=== PATIENT | female | born 1930 | race Caucasian/White ===

== ENCOUNTER → 2017-02-05 | Day surgery (SDC) | payer OTHER, MEDICARE ==
[~2017-02-05] VITALS: Ht 167.6 cm; Wt 65.8 kg
[~2017-02-05] MED LIST: AMOXICILLIN500 M2 PO; AUGMENTIN 875-1 EACH PO; BISACODYL5 M1 PO; BYSTOLIC5 M1 PO; COZAAR50 M1 PO; IBUPROFEN600 M1 PO; LEVOTHYROXINE100 MC1 PO; MULTI-DAY VITA1 EACH PO; NIZORAL120 ML TOP; OXYBUTYNIN CHLOR5 M2 PO; PROBIOTIC1 EACH PO; SENNA S TABLET1 EACH PO; TRAMADOL HCL50 M1 PO; TRIAMTERENE-HC1 EAC3 PO; TYLENOL #31 TAB PO; ULTRAM50 M1 PO; VESICARE5 M1 PO; ZOFRAN4 M2 PO
--- NOTE | 2017-02-05 10:19 | Operative Report ---
Operative/Inv Procedure Report Surgery Date: 02/05/17 Name of Procedure: ultrasound guided Hysteroscopy, endocervical biopsy/endocervical polypectomy, endometrial biopsy Pre-Operative Diagnosis: Incidental thick endometrium, suspected endometrial polyp Post-Operative Diagnosis: same, endocervical polyp, intrauterine adhesions. Estimated Blood Loss: scant Surgeon/College Scouting Coordinator: SUSAN STACK DO Anesthesia: TIVA IV Fluids: 1600 ml Urine Output: NA Drains: NA Specimens: emb,ecc, endocervical polyp Complications: NONE Condition: GOOD Operative Indication: 86 YEAR OLD FEMALE WHO PRESENTED TO [facility] WITH C/O PELVIC PAIN. SHE UNDERWENT PELVIC ULTRASOUND AND WAS FOUND TO HAVE AN INCIDENTALLY THICK ENDOMETRIUM WITH A SUSPICION OF A POLYP. u/s demonstrates 8.5mm endometrium with endometrial fluid. possible 6.9mm polyp noted. Anterior basalis was 2.1mm and posterior basalis 2.8mm. Pt informed of guidelines for endometrial sampling if endometrial fluid is present and endometrial thickness is >3mm. Otherwise, if asymptomatic and no fluid the threshold for sampling is 11mm. I ADVISED HYSTEROSCOPY, D AND C, POSSIBLE POLYPECTOMY under ULTRASOUND GUIDANCE . R/B/A REVIEWED INCLUDING RISK OF BLEEDING, INFECTION, PERFORATION, INJURY TO OTHER ORGANS, INCOMPLETE PROCEDURE, NON DIAGNOSTIC SPECIMEN. QUESTIONS WERE ANSWERED AND SHE DESIRES TO PROCEED. Operative/Procedure Note Note: THE PATIENT WAS TAKEN TO THE OPERATING ROOM WHERE ANESTHESIA WAS OBTAINED WITHOUT DIFFICULTY. SHE WAS THEN PREPPED AND DRAPED IN THE USUAL STERILE FASHION. SHE HAD QUITE A NARROW VAGINA . IT COULD NOT ACCOMODATE NARROW STEWART OR NORMAL SIZED SPECULUM. A PEDIATRIC SPECULUM WAS PLACED INSIDE THE PATIENT'S VAGINA . ANTERIOR LIP OF THE CERVIX WAS GRASPED WITH A SINGLE TOOTHED TENACULUM. A NAVARRO WAS INSERTED INTO THE BLADDER. THE BLADDER WAS BACKFILLED WITH 250ML OF STERILE WATER. PT LEAKED URINE FROM AROUND HER NAVARRO CATHETER. CERVICAL DILATION WAS PERFORMED WITH IMTIAZ DILATERS TO 19FRENCH. MODERATE CERVICAL MUCOUS WAS OBTAINED. PREHYSTEROSCOPY ENDOMETRIAL THICKNESS WAS 8MM. NO OBVIOUS ENDOMETRIAL FLUID WAS NOTED. HYSTEROSCOPY WAS PERFORMED WITH NORMAL SALINE DISTENTION MEDIA. ENDOCERVIX APPEARED TO HAVE POLYPOID TISSUE POSTERIORLY AND A SMALL ENDOCERVICAL POLYP ORIGINATING FROM 10 O'CLOCK. SHE HAD A BAND OF TISSUE IN THE MIDLINE OF THE LOWER UTERINE SEGMENT WHICH OBSTRUCTED ENTRY INTO THE ENDOMETRIAL CAVITY. USING THE MYOSURE DEVICE THE ENDOCERVICAL POLYP AND POLYPOID APPEARING TISSUE WERE EXCISED WITHOUT DIFFICULTY. MULTIPLE ATTEMPTS MADE TO FURTHER DILATE HER CERVIX AND GAIN ACCESS TO ENDOMETRIAL CAVITY UNDER DIRECT VISUALIZTION AND UNDER ULTRASOUND GUIDANCE BUT IT COULD NOT BE ACCOMPLISHED. US EXAMINATION SHOWED FLUID COLLECTION IN THE POSTERIOR PORTION OF UTERUS AND SLIGHTLY INTO THE ENDOMETRIAL CANAL . DIRECT VISUALIZATION OF FUNDUS AND OSTIA ATTEMPTED BUT SUBOPTIMAL. PROCEDURE WAS TERMINATED HER ENDOMETRIAL ECHO WAS 8MM ON TODAY'S US WITH NO OBVIOUS PREPROCEDURE ENDOMETRIAL FLUID NOTED (AND THRESHOLD FOR SAMPLING IS 11MM) AND I WAS CONCERNED THAT FURTHER MANIPULATION MAY CAUSE A PERFORATION . SHARP CURETTAGE WAS DEFERRED. RATHER ECC WAS OBTAINED AND SENT WITH THE CERVICAL MUCOUS OBTAINED EARLIER. ENDOMETRIAL PIPELLE PASSED X 2. SMALL BLOOD OBTAINED. ALL INSTRUMENTS WERE REMOVED FROM THE PATIENT'S UTERUS, CERVIX, AND VAGINA. HEMOSTASIS OF TENACULUM SITES WAS ACHIEVED. ALL SPONGE, LAP, AND NEEDLE COUNTS WERE CORRECT X 2 AND THE PATIENT WAS TAKEN TO THE RECOVERY AREA IN STABLE CONDITION. SPECIMENS SENT FOR PATHOLOGY. FINDINGS WERE RELAYED TO THE PATIENT AND HER DAUGHTER IN LAW POSTOPERATIVELY. DISCHARGE PRECAUTIONS WERE ADVISED.
--- NOTE | 2017-02-08 23:25 | ULTRASOUND REPORT ---
EXAMINATION: US GUIDANCE IN THE OPERATING ROOM CLINICAL INFORMATION: Thickened endometrium. Pelvic pain. COMPARISON: CT scan of the abdomen and pelvis dated 08/01/2016. TECHNIQUE: Intraoperative fluoroscopy was provided for the performance of a hysteroscopy with dilatation and curettage and polypectomy. FINDINGS: 6 images obtained demonstrate poor visualization of the uterus with what appears to be an abnormally thickened and heterogeneous endometrium, measuring up to approximately 1.2 cm in thickness. Ovaries not visualized. IMPRESSION: Limited images of the uterus obtained during intraoperative guidance.
== END ==
LOC: STS 02:21
DX: N84.1 Polyp of cervix uteri (principal); R10.2 Pelvic and perineal pain; N73.6 Female pelvic peritoneal adhesions (postinfective); R93.8 Abnormal findings on diagnostic imaging of other specified body structures; E03.9 Hypothyroidism, unspecified; I10 Essential (primary) hypertension; K21.9 Gastro-esophageal reflux disease without esophagitis
CPT/HCPCS: 76998; 88305; J2250

== ENCOUNTER 2017-02-17 14:31 | Inpatient (IN) | payer OTHER, MEDICARE ==
[~2017-02-17] VITALS: Ht 167.6 cm; Wt 68.0 kg
[~2017-02-17 14:31] MED LIST changes: -IBUPROFEN600 M1 PO
--- NOTE | 2017-02-17 14:45 | ED GI/GU/ABDOMINAL COMPLAINT ---
History of Present Illness General Chief Complaint: Nausea, Vomiting, Diarrhea Stated Complaint: SIB DR. JARRELL FOR +N/V Source: patient, family Exam Limitations: no limitations Vital Signs & Intake/Output Vital Signs & Intake/Output Vital Signs Date Time Temp Pulse Resp B/P B/P Pulse O2 O2 Flow FiO2 Mean Ox Delivery Rate 02/17 1741 97.0 70 18 209/76 99 Room Air 02/17 1438 99.5 84 20 188/65 96 Room Air Allergies Coded Allergies: omeprazole (Intermediate, GI UPSET 08/01/16) lisinopril (??? 02/03/17) codeine (Intermediate, INCREASED PAIN, N/V 08/01/16) oxycodone (From PERCOCET) (NAUSEA / VOMITING 02/03/17) Reconcile Medications Ibuprofen 600 MG TABLET 1 TAB PO TID PRN PAIN (Reported) with food Levothyroxine Sodium 100 MCG TABLET 1 TAB PO DAILY AC THYROID (Reported) Oxybutynin Chloride 5 MG TABLET 1 TAB PO Q48 Bladder Can use daily as tolerated. Sennosides/Docusate Sodium (Senna S Tablet) 8.6 MG-50 MG TABLET 1 TAB PO DAILY PRN CONSTIPATION (Reported) Tramadol HCl 50 MG TABLET 0.5 TAB PO Q6-PRN PRN PAIN (Reported) Triage Note: PT TO ED C/O DIARRHEA X A FEW DAYS. DENIES N/V. POOR PO INTAKE. ALSO C/O BURNING WITH URINATION. PT HAD D&C WITH DR STACK ON 02/05, STATES THE BURNING STARTED AFTER THAT AND HAS BEEN WORSE. PT CALLED PCP DR JARRELL AND WAS ADVISED TO COME TO ED FOR FLUIDS. Triage Nurses Notes Reviewed? yes ? N Is pt currently ? No Duration: constant Timing: recent history Quality/Severity: aching Severity Numbers: 5 Location: generalized abdomen Radiation: no radiation HPI: Patient is a 86-year-old female with a past medical history of hypertension hyperlipidemia and 2 weeks ago of a uterine D&C for uterine fibroids and abnormal vaginal bleeding where she states that her symptoms of bleeding have resolved however patient presented to emergency with a 3 day history of persistent diarrhea and loose watery bowel production. Patient denies any recent antibiotics. Patient is able to tolerate by mouth Does complain of intermittent abdominal pain Patient does have dysuria and increased frequency of urination Denies any fever chills chest pain shortness of breath back pain vaginal bleeding or discharge nausea or vomiting (TAIWO PEREZ) Past History Travel History Traveled to [place] past 21 day No Medical History Any Pertinent Medical History? 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/Reproductive: NONE History of MRSA: No History of VRE: No History of CDIFF: No Pneumonia Vaccine: 07/16/16 Influenza Vaccine: 07/14/16 Surgical History Surgical History: cholecystectomy, knee replacement (bilateral), B/L TRK dupuytren's 5th digit LAPROSCOPIC HIATAL HERNIA REPAIR hiatal hernia repair (07/17/2016) Psychosocial History Who do you live with Patient/Self Services at Home Home Health Aide What is your primary language Tajik Tobacco Use: Never used ETOH Use: denies use Illicit Drug Use: denies illicit drug use Family History Family History, If Any: MOTHER FH: heart disease FATHER FH: diabetes mellitus FH: heart disease Hx Contributory? No (TAIWO PEREZ) Review of Systems Review of Systems Constitutional: Reports: no symptoms. EENTM: Reports: no symptoms. Respiratory: Reports: no symptoms. Cardiovascular: Reports: no symptoms. GI: Reports: see HPI, abdominal pain, diarrhea. Genitourinary: Reports: no symptoms. Musculoskeletal: Reports: no symptoms. Skin: Reports: no symptoms. Neurological/Psychological: Reports: no symptoms. Hematologic/Endocrine: Reports: no symptoms. Immunologic/Allergic: Reports: no symptoms. All Other Systems: Reviewed and Negative (TAIWO PEREZ) Physical Exam Physical Exam General Appearance: no apparent distress, alert, comfortable Gastrointestinal: normal bowel sounds, soft, MILD RIGHT LOWER QUADRANT AND LEFT LOWER QUADRANT POINT TENDERNESS NO REBOUND TENDERNESS Comments: Well-developed well-nourished person in no acute distress HEENT: Normal EENT exam Neck: Supple, no lymphadenopathy, normal range of motion without pain or tenderness Back: Nontender, no CVA tenderness. Cardiovascular: Regular rate and rhythms no murmurs rubs or gallops, normal JVP Respiratory: Chest nontender. No respiratory distress.breath sounds clear to auscultation bilaterally Abdomen: Soft, nontender nondistended, no appreciable organomegaly. Normal bowel sounds. No ascites Extremity: No edema, no calf tenderness to palpation, normal and equal pulses. Neuro: Alert oriented x3, motor sensory normal, Skin: No appreciable rash on exposed skin, skin is warm and dry. Psych: Mood and affect is normal, memory and judgment is normal. Core Measures ACS in differential dx? No Severe Sepsis Present: No Septic Shock Present: No (LUC GARCIA,TAIWO) Progress Differential Diagnosis: AAA, AMI, appendicitis, biliary colic, bowel obstruction , colon cancer, cholecystitis, diverticulitis, endometritis, esophageal varices, gastritis, hepatitis, hernia, hemorrhoids, ischemic bowel, inflamm bowel dis, kidney stone, Mohini-Eric tear, ovarian cyst, ovarian torsion, pancreatitis, PID/cervicitis, peptic ulcer, PUD/GERD, perforated viscous, SBO, UTI/pyelo Plan of Care: Orders Procedure Date/time Status Nothing by Mouth 02/18 B Active ED Holding Orders 02/17 2010 Active Admit to inpatient 02/17 2010 Active Vital Signs 02/17 2010 Active Code Status 02/17 2010 Active PARTIAL THROMBOPLASTIN TIME 02/17 1829 Active PROTHROMBIN TIME 02/17 1829 Active EKG 02/17 1829 Active TYPE & SCREEN (NOT X-MATCH) 02/17 1829 Complete BLOOD CULTURE 02/17 1828 Active LACTIC ACID 02/17 1755 Complete Straight Cath 02/17 1612 Active CULTURE,URINE 02/17 1455 Active CULTURE,STOOL 02/17 1455 Active C.DIFFICILE 02/17 1455 Active URINALYSIS 02/17 1455 Complete LIPASE 02/17 1455 Complete LACTIC ACID 02/17 1455 Complete COMPREHENSIVE METABOLIC PANEL 02/17 1455 Complete CBC WITHOUT DIFFERENTIAL 02/17 1455 Complete AMYLASE 02/17 1455 Complete Laboratory Tests 02/17/17 1856: Lactic Acid 0.7, PT Pending, INR Pending, APTT Pending 02/17/17 1710: Urinalysis MOD H, Urine Color BROWN H, Urine Clarity CLDY H, Urine pH 6.0, Ur Specific [place] 1.025, Urine Protein 100 H, Urine Ketones NEG, Urine Nitrite POS H, Urine Bilirubin NEG, Urine Urobilinogen 1.0, Ur Leukocyte Esterase LARGE H, Ur Microscopic SEDIMENT EXAMINED, Urine RBC 5-10 H, Urine WBC > 75 H, Ur Epithelial Cells MOD H, Urine Bacteria MANY H, Urine Mucus FEW, Urine Hemoglobin LARGE H, Urine Glucose NEG 02/17/17 1352: Anion Gap 9, Estimated GFR > 60, BUN/Creatinine Ratio 15.0, Glucose 117 H, Lactic Acid 0.9, Calcium 8.4, Total Bilirubin 0.3, AST 15, ALT 30, Alkaline Phosphatase 82, Total Protein 6.0 L, Albumin 2.8 L, Globulin 3.2, Albumin/ Globulin Ratio 0.9 L, Amylase < 30 L, Lipase 11 L, CBC w Diff NO MAN DIFF REQ , RBC 3.15 L, MCV 82.2, MCH 26.9 L, RDW 15.9 H, MPV 6.8 L, Gran % 85.3 H, Lymphocytes % 8.6 L, Monocytes % 5.4, Eosinophils % 0.4, Basophils % 0.3, Absolute Granulocytes 11.5 H, Absolute Lymphocytes 1.2, Absolute Monocytes 0.7 H, Absolute Eosinophils 0, Absolute Basophils 0, PUBS MCHC 32.7 L Microbiology 02/17 1954 BLOOD: Blood Culture - RECD 02/17 1856 BLOOD: Blood Culture - RECD 02/17 1710 URINE ROUT: Urine Culture - RECD 02/17 1548 STOOL: Clostridium difficile Toxin A & B - RECD 02/17 1548 STOOL: Stool Culture - RECD Patient upon initial evaluation was in no apparent distress and declined pain medications when offered. IV fluid resuscitation was administered initially. Patient after CT scan was resulted shows acute critical findings of a possible diverticulitis with fistula communication between the sigmoid colon and the bladder I discussed patient with Dr. Jt Hermosillo who accepted the patient under his service in which he agrees with IV antibiotics and by mouth Discussed admission with surgical PA will also consult patient Discussed disposition and plan with family members and patient who currently is no questionS and patient is resting comfortably at bedside. (LUC GARCIA,TAIWO) Diagnostic Imaging: Viewed by Me: CT Scan. Radiology Impression: acute abnormality Initial ED EKG: normal p-waves, normal QRS complex, normal sinus rhythm, 66 BPM Comments: PATIENT: BETHANY SAENZ PRESENT AGE: 86 PATIENT ACCOUNT NO: [id number] : 32 LOCATION: [facility] ORDERING PHYSICIAN: TAIWO GARCIA SERVICE DATE: 02/17/17 EXAM TYPE: CAT - CT ABD & PELVIS W IV CONTRAST EXAMINATION: CT ABDOMEN AND PELVIS WITH CONTRAST CLINICAL INFORMATION: Abdominal pain and diarrhea. COMPARISON: CT from 08/01/2016. TECHNIQUE: Multidetector volumetric imaging was performed of the abdomen and pelvis after the IV administration of 95 mL of Optiray 320 intravenous contrast. Sagittal and coronal reformatted images were obtained on the technologist's workstation. DLP: 283.12 mGy-cm FINDINGS: There is significant wall thickening surrounding the mid sigmoid colon with scattered diverticula and a moderate amount of retained stool. Pericolonic inflammatory changes are also present. There is a questionable communication of air between the bowel and adjacent thick-walled bladder which contains foci of air. There is a mild amount of free fluid in the pelvis. No free air is identified. No drainable fluid collection is seen. There is no evidence of a large bowel obstruction. Extensive colonic diverticulosis is again noted with a moderate volume of stool in the colon. The uterus is not well assessed due to large bowel wall thickening in the deep pelvis. No bulky adenopathy is seen. The kidneys demonstrate symmetric nephrograms. The spleen, liver, and adrenal glands appear normal. There are fatty changes throughout the pancreas. There is moderate atherosclerotic wall calcification of the nonaneurysmal abdominal aorta. Small pleural effusions are noted. There is mild passive atelectasis in the left lung base. No acute osseous abnormality is seen. A chronic anterior wedge compression fracture deformity at T12 is relatively unchanged with retropulsion of the superior endplate. Significant disc space narrowing and endplate sclerosis again noted at L5-S1. Heterogeneous sclerotic and lucent changes in the bony sacrum may be due to prior sacral fractures. There are suspected chronic fractures in the right pubic rami. IMPRESSION: Mid sigmoid colonic wall thickening and inflammatory changes which are most indicative for acute diverticulitis. No free air or drainable fluid collection. 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 Mild amount of air in the bladder. Correlate for any history of recent Montemayor catheterization. Imaging findings discussed with Dr. Cruz at 6:27 PM on 02/17/2017. (TAIWO PEREZ) Departure Departure Disposition: STILL A PATIENT Condition: Guarded Clinical Impression Primary Impression: Diverticulitis of sigmoid colon Secondary Impressions: Colovesical fistula Referrals: CHRYSTAL SZYMANSKI,AZAM Leyva (PCP/Family) Departure Forms: Customer Survey General Discharge Information Admission Note Spoke With: JT HERMOSILLO JR, DO Documentation of Exam: Documentation of any treatments & extenuating circumstances including Concerns Regarding Discharge (functional status, medication knowledge or non-compliance, living conditions, etc.) that warrant an admission rather than observation: [ Discussed patient with Dr. Hermosillo who agrees with admission for concerns of diverticulitis and suspicion of fistula of the colon and the bladder which patient requires IV antibiotics, repeat blood work vital sign check IV fluid resuscitation and possible surgical intervention] (TAIWO PEREZ) PA/DIRECTOR OF SPA AND GUEST EXPERIENCE Co-Sign Statement Statement: ED Attending supervision documentation- [x] I saw and evaluated the patient. I have also reviewed all the pertinent lab results and diagnostic results. I agree with the findings and the plan of care as documented in the PA's/DIRECTOR OF SPA AND GUEST EXPERIENCE's documentation. [] I have reviewed the ED Record and agree with the PA's/DIRECTOR OF SPA AND GUEST EXPERIENCE's documentation. [] Additions or exceptions (if any) to the PAs/DIRECTOR OF SPA AND GUEST EXPERIENCE's note and plan are summarized below: [] (PHILIP DIOP DO) Critical Care Note Critical Care Note Critical Care Time: 75-104 min (TAIWO PEREZ)
[2017-02-17] MEDS ORDERED: SENNA S TABLET1 EACH PO (15:24)
[2017-02-17] MEDS ORDERED: IBUPROFEN600 M1 PO (15:25)
[2017-02-17] MEDS ORDERED: TRAMADOL HCL50 M1 PO (15:25)
[2017-02-17 15:37] LABS: ABSOLUTE BASOPHIL COUNT 0 /CUMM (0.0-0.2); ABSOLUTE EOSINOPHIL COUNT 0 /CUMM (0.0-0.7); ABSOLUTE GRANULOCYTE CT 11.5 /CUMM (1.4-6.5); ABSOLUTE LYMPH COUNT 1.2 /CUMM (1.2-3.4); ABSOLUTE MONOCYTE COUNT 0.7 /CUMM (0.10-0.60); BASOPHIL % 0.3 % (0.0-2.0); EOSINOPHIL % 0.4 % (0-5); HEMATOCRIT 25.9 % (37-47); MEAN CORPUSCULAR HGB 26.9 PG (27.0-31.0); MEAN CORPUSCULAR HGB CONC 32.7 G/DL (33.0-37.0); MEAN CORPUSCULAR VOLUME 82.2 FL (81.0-99.0); MEAN PLATELET VOLUME 6.8 FL (7.4-10.4); PLATELET COUNT 414 /CUMM (130-400); RBC DISTRIBUTION WIDTH 15.9 % (11.5-14.5); RED BLOOD CELL CT 3.15 /CUMM (4.20-5.40); WHITE BLOOD CELL COUNT 13.5 /CUMM (4.8-10.8)
[2017-02-17 15:56] LABS: GRANULOCYTE % 85.3 % (42.2-75.2)
--- NOTE | 2017-02-17 18:35 | CT SCAN REPORT ---
EXAMINATION: CT ABDOMEN AND PELVIS WITH CONTRAST CLINICAL INFORMATION: Abdominal pain and diarrhea. COMPARISON: CT from 08/01/2016. TECHNIQUE: Multidetector volumetric imaging was performed of the abdomen and pelvis after the IV administration of 95 mL of Optiray 320 intravenous contrast. Sagittal and coronal reformatted images were obtained on the technologist's workstation. DLP: 283.12 mGy-cm FINDINGS: There is significant wall thickening surrounding the mid sigmoid colon with scattered diverticula and a moderate amount of retained stool. Pericolonic inflammatory changes are also present. There is a questionable communication of air between the bowel and adjacent thick-walled bladder which contains foci of air. There is a mild amount of free fluid in the pelvis. No free air is identified. No drainable fluid collection is seen. There is no evidence of a large bowel obstruction. Extensive colonic diverticulosis is again noted with a moderate volume of stool in the colon. The uterus is not well assessed due to large bowel wall thickening in the deep pelvis. No bulky adenopathy is seen. The kidneys demonstrate symmetric nephrograms. The spleen, liver, and adrenal glands appear normal. There are fatty changes throughout the pancreas. There is moderate atherosclerotic wall calcification of the nonaneurysmal abdominal aorta. Small pleural effusions are noted. There is mild passive atelectasis in the left lung base. No acute osseous abnormality is seen. A chronic anterior wedge compression fracture deformity at T12 is relatively unchanged with retropulsion of the superior endplate. Significant disc space narrowing and endplate sclerosis again noted at L5-S1. Heterogeneous sclerotic and lucent changes in the bony sacrum may be due to prior sacral fractures. There are suspected chronic fractures in the right pubic rami. IMPRESSION: Mid sigmoid colonic wall thickening and inflammatory changes which are most indicative for acute diverticulitis. No free air or drainable fluid collection. 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 Mild amount of air in the bladder. Correlate for any history of recent Montemayor catheterization. Imaging findings discussed with Dr. Cruz at 6:27 PM on 02/17/2017.
[2017-02-17 19:18] LABS: PT 13.2 SEC (9.4-12.5); PTT 32 SEC (25-37)
--- NOTE | 2017-02-17 23:45 | Admission Core Measures ---
Admission Lab Results I reviewed the following labs: Laboratory Tests 02/17 02/17 1856 1710 Chemistry Lactic Acid (0.7 - 2.1 mmol/L) 0.7 Coagulation PT (9.4 - 12.5 SEC) 13.2 H INR (0.90 - 1.19) 1.26 H APTT (25 - 37 SEC) 32 Urines Urinalysis MOD H Urine Color (YEL,AMB,STR) BROWN H Urine Clarity (CLEAR) CLDY H Urine pH (5.0 - 8.0) 6.0 Ur Specific [place] (1.001 - 1.035) 1.025 Urine Protein (NEG,<30 MG/DL) 100 H Urine Ketones (NEG) NEG Urine Nitrite (NEG) POS H Urine Bilirubin (NEG) NEG Urine Urobilinogen (0.1 - 1.0 EU/dl) 1.0 Ur Leukocyte Esterase (NEG) LARGE H Ur Microscopic SEDIMENT EXAMINED Urine RBC (0 - 5 /HPF) 5-10 H Urine WBC (0 - 2 /HPF) > 75 H Ur Epithelial Cells (NONE,FEW) MOD H Urine Bacteria (NEG/NONE) MANY H Urine Mucus (FEW,NONE) FEW Urine Hemoglobin (NEG) LARGE H Urine Glucose (N MG/DL) NEG 02/17 1352 Chemistry Sodium (137 - 145 mmol/L) 137 Potassium (3.5 - 5.1 mmol/L) 3.2 L Chloride (98 - 107 mmol/L) 102 Carbon Dioxide (22 - 30 mmol/L) 26 Anion Gap (5 - 16) 9 BUN (7 - 17 mg/dL) 12 Creatinine (0.5 - 1.0 mg/dL) 0.8 Estimated GFR (>60 ml/min) > 60 BUN/Creatinine Ratio (7 - 25 %) 15.0 Glucose (65 - 99 mg/dL) 117 H Lactic Acid (0.7 - 2.1 mmol/L) 0.9 Calcium (8.4 - 10.2 mg/dL) 8.4 Total Bilirubin (0.2 - 1.3 mg/dL) 0.3 AST (14 - 36 U/L) 15 ALT (9 - 52 U/L) 30 Alkaline Phosphatase (<127 U/L) 82 Total Protein (6.3 - 8.2 g/dL) 6.0 L Albumin (3.5 - 5.0 g/dL) 2.8 L Globulin (1.9 - 4.2 gm/dL) 3.2 Albumin/Globulin Ratio (1.1 - 2.2 %) 0.9 L Amylase (30 - 110 U/L) < 30 L Lipase (23 - 300 U/L) 11 L Hematology CBC w Diff NO MAN DIFF REQ WBC (4.8 - 10.8 /CUMM) 13.5 H RBC (4.20 - 5.40 /CUMM) 3.15 L Hgb (12.0 - 16.0 G/DL) 8.5 L Hct (37 - 47 %) 25.9 L MCV (81.0 - 99.0 FL) 82.2 MCH (27.0 - 31.0 PG) 26.9 L RDW (11.5 - 14.5 %) 15.9 H Plt Count (130 - 400 /CUMM) 414 H MPV (7.4 - 10.4 FL) 6.8 L Gran % (42.2 - 75.2 %) 85.3 H Lymphocytes % (20.5 - 51.1 %) 8.6 L Monocytes % (1.7 - 9.3 %) 5.4 Eosinophils % (0 - 5 %) 0.4 Basophils % (0.0 - 2.0 %) 0.3 Absolute Granulocytes (1.4 - 6.5 /CUMM) 11.5 H Absolute Lymphocytes (1.2 - 3.4 /CUMM) 1.2 Absolute Monocytes (0.10 - 0.60 /CUMM) 0.7 H Absolute Eosinophils (0.0 - 0.7 /CUMM) 0 Absolute Basophils (0.0 - 0.2 /CUMM) 0 PUBS MCHC (33.0 - 37.0 G/DL) 32.7 L Admission Meds I reviewed the following Meds: Current Medications Sig/Miguel Start time Last Medication Dose Stop Time Status Admin Acetaminophen 650 MG Q6PRN PRN 02/17 2230 AC (Tylenol) Dextrose/Sodium 1,000 ML .[id number] 02/18 0000 AC Chloride (D5-Normal Saline) Heparin Sodium 5,000 UNIT Q8 02/18 0600 AC (Porcine) Levothyroxine Sodium 0.1 MG DAILY AC 02/18 0700 AC (Synthroid) Ondansetron HCl 4 MG Q6-PRN PRN 02/17 2245 AC (Zofran) Acute Coronary Syndrome Inclusion Criteria ACS Diagnosis No Inpatient Core Measures LDL Reminder: If No, please order W/I first 24hr of stay Congestive Heart Failure Inclusion Criteria CHF Diagnosis No Cerebrovascular accident Inclusion Criteria CVA/TIA Diagnosis No Inpatient Core Measures Bedside Swallow Eval Reminder: If BSE failed, place ST order Antithrombotic Reminder: Order Antithrombotic Medication by end of day 2 Antithrombotic Reminder: Document Reason Antithrombotic Not ordered by end of day 2 AFIB/Flutter Reminder: If Present, add to problem list AFIB/Flutter Reminder: Order Anticoag Medication for pts with AFIB/Flutter Atherosclerosis Reminder: If Present, add to problem list LDL Reminder: If No, please order W/I first 24hr of stay PT Order Reminder: If No, please order Venous thromboembolism Inpatient Core Measures VTE Risk Factors: Acute medical illness, Age > 40 [facility]/t No contraindications No VTE Pharm Prophylaxis d/t No contraindications Inclusion Criteria - Per Current guidelines, there needs to be overlap - treatment for the first 5 days of Warfarin therapy. - Parenteral Anticoagulation (IV or SC) needs to be - given along with Warfarin therapy. VTE Diagnosis No VTE Type NONE VTE Confirmed by (Test) NONE Problem List As ranked by this Provider includes Assessment & Plan 1. Colovesical fistula HOME MEDS Home Med List Ibuprofen 600 MG TABLET 1 TAB PO TID PRN PAIN (Reported) Levothyroxine Sodium 100 MCG TABLET 1 TAB PO DAILY AC THYROID (Reported) Oxybutynin Chloride 5 MG TABLET 1 TAB PO Q48 Bladder Sennosides/Docusate Sodium (Senna S Tablet) 8.6 MG-50 MG TABLET 1 TAB PO DAILY PRN CONSTIPATION (Reported) Tramadol HCl 50 MG TABLET 0.5 TAB PO Q6-PRN PRN PAIN (Reported)
--- NOTE | 2017-02-17 23:55 | History & Physical Pre-Op ---
DERRELL OCONNOR 02/17/17 2344: General Information and HPI MD Statement: I have seen and personally examined BETHANY SAENZ and documented this H&P. The patient is a 86 year old F who presented with a patient stated chief complaint of []. History of Present Illness: 86f presents to ED c/o diarrhea and stool in her urine x3 days. She has also had vague lower abdominal pain for the last year. PMHx hyprothyroidism, htn, OA , & urge incontinence, and s/p D&C 2 wks ago for fibroid tumors. She reports a low appetite, but denies nausea/vomiting. Noticed feculent material in urine 3- 4 days ago when began having diarrhea, and has had dysuria with "burning" for a few weeks. Deneis fever/chills, no CP/SOB. Last colonoscopy in fall 2015- per pt, "twisted" colon and poor prep, so exam was incomplete, but was told she had extensive diverticulosis. No known episodes of diverticulitis. Allergies/Medications Allergies: Coded Allergies: omeprazole (Intermediate, GI UPSET 08/01/16) lisinopril (??? 02/03/17) codeine (Intermediate, INCREASED PAIN, N/V 08/01/16) oxycodone (From PERCOCET) (NAUSEA / VOMITING 02/03/17) Home Med list Ibuprofen 600 MG TABLET 1 TAB PO TID PRN PAIN (Reported) with food Levothyroxine Sodium 100 MCG TABLET 1 TAB PO DAILY AC THYROID (Reported) Oxybutynin Chloride 5 MG TABLET 1 TAB PO Q48 Bladder Can use daily as tolerated. 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 self Services at Home Home Health Aide Primary Language: Latvian ETOH Use: denies use Illicit Drug Use: denies illicit drug use Living Will? yes Functional Ability ADLs Independent: dressing, eating, toileting, bathing. Ambulation: independent IADLs Independent: shopping, housework, finances, food prep, telephone, transportation , medication admin. Exam & Diagnostic Data Last 24 Hrs of Vital Signs/I&O Vital Signs Date Time Temp Pulse Resp B/P B/P Pulse O2 O2 Flow FiO2 Mean Ox Delivery Rate 02/17 1741 97.0 70 18 209/76 99 Room Air 02/17 1438 99.5 84 20 188/65 96 Room Air Intake & Output 02/17 1600 02/17 0800 06 0000 Intake Total 1000 Output Total Balance 1000 Intake, IV 1000 Patient 150 lb Weight Weight Estimated Measurement Method Physical Exam: GEN: NAD CARD: S1S2 RRR PULM: CTAB ABD: softly distended, nt, well healed surg incisions, +bs, no masses EXT: slight edema ankles, calves soft nt bl Last 24 Hrs of Labs/Brad: Laboratory Tests 02/17/17 1856: Lactic Acid 0.7, PT 13.2 H, INR 1.26 H, APTT 32 02/17/17 1710: Urinalysis MOD H, Urine Color BROWN H, Urine Clarity CLDY H, Urine pH 6.0, Ur Specific [place] 1.025, Urine Protein 100 H, Urine Ketones NEG, Urine Nitrite POS H, Urine Bilirubin NEG, Urine Urobilinogen 1.0, Ur Leukocyte Esterase LARGE H, Ur Microscopic SEDIMENT EXAMINED, Urine RBC 5-10 H, Urine WBC > 75 H, Ur Epithelial Cells MOD H, Urine Bacteria MANY H, Urine Mucus FEW, Urine Hemoglobin LARGE H, Urine Glucose NEG 02/17/17 1352: Anion Gap 9, Estimated GFR > 60, BUN/Creatinine Ratio 15.0, Glucose 117 H, Lactic Acid 0.9, Calcium 8.4, Total Bilirubin 0.3, AST 15, ALT 30, Alkaline Phosphatase 82, Total Protein 6.0 L, Albumin 2.8 L, Globulin 3.2, Albumin/ Globulin Ratio 0.9 L, Amylase < 30 L, Lipase 11 L, CBC w Diff NO MAN DIFF REQ , RBC 3.15 L, MCV 82.2, MCH 26.9 L, RDW 15.9 H, MPV 6.8 L, Gran % 85.3 H, Lymphocytes % 8.6 L, Monocytes % 5.4, Eosinophils % 0.4, Basophils % 0.3, Absolute Granulocytes 11.5 H, Absolute Lymphocytes 1.2, Absolute Monocytes 0.7 H, Absolute Eosinophils 0, Absolute Basophils 0, PUBS MCHC 32.7 L Microbiology 02/17 1954 BLOOD: Blood Culture - RECD 02/17 185 BLOOD: Blood Culture - RECD 02/17 1710 URINE ROUT: Urine Culture - RECD 02/17 1548 STOOL: Clostridium difficile Toxin A & B - RECD 02/17 1548 STOOL: Stool Culture - RECD Diagnostic Data Other Results CT a/p: FINDINGS: There is significant wall thickening surrounding the mid sigmoid colon with scattered diverticula and a moderate amount of retained stool. Pericolonic inflammatory changes are also present. There is a questionable communication of air between the bowel and adjacent thick-walled bladder which contains foci of air. There is a mild amount of free fluid in the pelvis. No free air is identified. No drainable fluid collection is seen. There is no evidence of a large bowel obstruction. Extensive colonic diverticulosis is again noted with a moderate volume of stool in the colon. The uterus is not well assessed due to large bowel wall thickening in the deep pelvis. No bulky adenopathy is seen. The kidneys demonstrate symmetric nephrograms. The spleen, liver, and adrenal glands appear normal. There are fatty changes throughout the pancreas. There is moderate atherosclerotic wall calcification of the nonaneurysmal abdominal aorta. Small pleural effusions are noted. There is mild passive atelectasis in the left lung base. No acute osseous abnormality is seen. A chronic anterior wedge compression fracture deformity at T12 is relatively unchanged with retropulsion of the superior endplate. Significant disc space narrowing and endplate sclerosis again noted at L5-S1. Heterogeneous sclerotic and lucent changes in the bony sacrum may be due to prior sacral fractures. There are suspected chronic fractures in the right pubic rami. IMPRESSION: Mid sigmoid colonic wall thickening and inflammatory changes which are most indicative for acute diverticulitis. No free air or drainable fluid collection. 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 Mild amount of air in the bladder. Correlate for any history of recent Starr catheterization. Assessment/Plan Assessment/Plan: A: 86F with colovesical fistula and diarrhea, with mild leukocytosis, otherwise stable. P: clrs, npo p mn ivf iv meds starr cath check cdiff ralph, flagyl Dr. Hermosillo to see in am, surgery to be discussed with patient As Ranked By This Provider Problem List: 1. Colovesical fistula JT HERMOSILLO DO 02/18/17 0837: Attending MD Review Statement Attending Statement Attending Assessment/Plan: Clincical data reviewed , pt examined and pt discussed with PA staff Agree with above assesment and plan Admit NPO, IV antibiotics , likely surgery this admission
[2017-02-18 05:36] VITALS: BP 182/96
[2017-02-18 06:53] VITALS: BP 182/96
[2017-02-18 07:20] VITALS: BP 162/68
--- NOTE | 2017-02-18 07:47 | PN- General Surgery ---
See Addendum Subjective Subjective: Awake, alert No complaints overnight Feels much better after the starr placement - no further burning No nausea or abdominal pain Objective Vital Signs and I&Os Vital Signs Date Time Temp Pulse Resp B/P B/P Pulse O2 O2 Flow FiO2 Mean Ox Delivery Rate 02/18 0720 162/68 02/18 0653 98.7 79 20 182/96 95 Room Air 02/18 0607 78 182/96 / 0536 78 182/96 / 0421 172/72 02/18 0411 72 166/72 / 0403 77 170/74 / 0355 182/81 /08 0334 98.6 82 18 181/110 06/ 0334 81 181/110 98 Room Air 02/18 0318 190/76 /08 0210 98.6 78 18 200/76 96 Room Air / 1741 97.0 70 18 209/76 99 Room Air / 1438 99.5 84 20 188/65 96 Room Air Intake & Output 02/18 0800 / 0000 02/17 1600 02/17 0800 02/17 0000 02/16 1600 Intake Total 210 1000 Output Total 50 Balance 210 -50 1000 Intake, IV 150 1000 Intake, Oral 60 Output, Urine 50 Patient 150 lb 150 lb Weight Weight Reported by Patient Estimated Measurement Method Physical Exam: SBP 180-200 overnight Pt has taken dyazide/losartan in the past but was told after a hospitalization last august that she didn't need to take those meds. Does not seem to be pain related General: alert and oriented times three Chest: clear anteriorly bilaterally Abd:soft, good bs, nontender, nondistended Ext: warm, no edema Assessment/Plan Assessment/Plan 86 yo female hospital day 2 - admitted overnight for colovesicular fistula HTN: restart patients prior medication regimen of dyazide and losartan, will monitor closely Continue starr catheter npo/ivf - await Dr Hermosillo decision regarding surgery antibiotics hep sc for dvt ppx replete potassium in the ivf fu labs this am Core Measures/Miscellaneous Venous Thromboembolism VTE Risk Factors: Age > 40, Surgery VTE Contraindications: No Contraindications VTE Diagnosis: No VTE Type: NONE VTE Confirmed by (Test): NONE Beta Derrick Is Beta Derrick a Home Med? No Antibiotics Is Patient on Antibiotics? Yes If Yes: infection
--- NOTE | 2017-02-18 09:02 | PN- General Surgery ---
Surgical Brief Attending Note Brief Attending Note: Pt looks well AVSS Abdomen - soft Impression : Acute diverticulitis with colovesicle fistula. Pt not toxic Will keep on IV antibiotics and get this to cool down for a few day Pt will need surgery this admission Will need urology assitace with this case - I will contact them
[2017-02-18 09:05] LABS: ABSOLUTE BASOPHIL COUNT 0 /CUMM (0.0-0.2); ABSOLUTE EOSINOPHIL COUNT 0 /CUMM (0.0-0.7); ABSOLUTE GRANULOCYTE CT 11.9 /CUMM (1.4-6.5); ABSOLUTE LYMPH COUNT 0.8 /CUMM (1.2-3.4); ABSOLUTE MONOCYTE COUNT 0.6 /CUMM (0.10-0.60); BASOPHIL % 0.1 % (0.0-2.0); EOSINOPHIL % 0.2 % (0-5); HEMATOCRIT 25.6 % (37-47); MEAN CORPUSCULAR HGB 26.7 PG (27.0-31.0); MEAN CORPUSCULAR HGB CONC 32.8 G/DL (33.0-37.0); MEAN CORPUSCULAR VOLUME 81.5 FL (81.0-99.0); PLATELET COUNT 446 /CUMM (130-400); RBC DISTRIBUTION WIDTH 14.8 % (11.5-14.5); RED BLOOD CELL CT 3.14 /CUMM (4.20-5.40); WHITE BLOOD CELL COUNT 13.4 /CUMM (4.8-10.8)
[2017-02-18 09:41] LABS: GRANULOCYTE % 89.3 % (42.2-75.2)
[2017-02-18 14:36] VITALS: BP 142/78
[2017-02-18 21:42] VITALS: BP 132/76
[2017-02-19 06:08] VITALS: BP 138/74
--- NOTE | 2017-02-19 06:39 | PN- General Surgery ---
Surgical Brief Attending Note Brief Attending Note: Patient states pain has resolved and she feels better. Still admits to high volume diarrhea Patient remains AVSS WBCs remain elevated yesterday at 13,000 Abdomen is soft Impression: Acute on chronic complicated diverticulitis with colovesical fistula. Plan: Urology, Dr. Florencia Tran, has been consulted and will see patient today. Please consult medical hospitalist service for preoperative risk assessment and clearance Okay to stay on low fiber diet for now Continue IV antibiotics Monitor white blood cell count We are planning for surgery sometime next week: Cystoscopy and ureteral stent placement, open Leihg's with takedown of colovesical fistula and repair of bladder
[2017-02-19 08:31] LABS: ABSOLUTE BASOPHIL COUNT 0 /CUMM (0.0-0.2); ABSOLUTE EOSINOPHIL COUNT 0.1 /CUMM (0.0-0.7); ABSOLUTE GRANULOCYTE CT 9.5 /CUMM (1.4-6.5); ABSOLUTE MONOCYTE COUNT 0.6 /CUMM (0.10-0.60); BASOPHIL % 0.2 % (0.0-2.0); EOSINOPHIL % 0.8 % (0-5); HEMATOCRIT 25.3 % (37-47); MEAN CORPUSCULAR HGB 26.7 PG (27.0-31.0); MEAN CORPUSCULAR HGB CONC 32.6 G/DL (33.0-37.0); MEAN CORPUSCULAR VOLUME 81.9 FL (81.0-99.0); MEAN PLATELET VOLUME 7.1 FL (7.4-10.4); PLATELET COUNT 413 /CUMM (130-400); RBC DISTRIBUTION WIDTH 15.8 % (11.5-14.5); RED BLOOD CELL CT 3.08 /CUMM (4.20-5.40); WHITE BLOOD CELL COUNT 11.2 /CUMM (4.8-10.8)
--- NOTE | 2017-02-19 09:30 | Cons- Medical ---
MANUELITO FAM 02/19/17 0849: General Information and HPI Consulting Request Date of Consult: 02/19/17 Requested By: JT HERMOSILLO JR, DO Reason for Consult: HYPERTENSION, HYPERTHYROIDISM Source of Information: patient, old records Exam Limitations: no limitations History of Present Illness: This is an 86 year old female with past medical history significant for hypertension, hyperlipidemia, constipation, neurogenic bladder, hypothyroidism, OA status post bilateral knee replacement, distant history of melanoma, status post D&C 2 weeks ago for fibroid tumor who was admitted 2 days ago for with complaints of diarrhea with feculent material in urine and dysuria. CT scan abdomen and pelvis showed acute diverticulitis and suspected colovesicular fistula with small focus of air protruding from the colonic wall to the thickened bladder. Small amount of air was seen in the bladder. The current diagnosis is acute on chronic complicated diverticulitis with colovesical fistula.Patient is scheduled for surgical procedures of cystoscopy and urethral stent placement and open Bernardo procedure with removal of colovesical fistula and repair of bladder. The surgeons are Dr. Hermosillo and Dr. Tran. Patient complains of mild abdominal pain which is better than yesterday. Still admits to having diarrhea and feculent urine. Has been afebrile overnight. The medical team was consulted for preoperative risk assessment and clearance prior to surgery. Allergies/Medications Allergies: Coded Allergies: omeprazole (Intermediate, GI UPSET 08/01/16) lisinopril (??? 02/03/17) codeine (Intermediate, INCREASED PAIN, N/V 08/01/16) oxycodone (From PERCOCET) (NAUSEA / VOMITING 02/03/17) Home Med List: Ibuprofen 600 MG TABLET 1 TAB PO TID PRN PAIN (Reported) with food Levothyroxine Sodium 100 MCG TABLET 1 TAB PO DAILY AC THYROID (Reported) Oxybutynin Chloride 5 MG TABLET 1 TAB PO Q48 Bladder Can use daily as tolerated. Sennosides/Docusate Sodium (Senna S Tablet) 8.6 MG-50 MG TABLET 1 TAB PO DAILY PRN CONSTIPATION (Reported) Tramadol HCl 50 MG TABLET 0.5 TAB PO Q6-PRN PRN PAIN (Reported) Review of Systems Review of Systems Constitutional: Reports: weakness. EENTM: Reports: no symptoms. Cardiovascular: Reports: no symptoms. Respiratory: Reports: no symptoms. GI: Reports: abdominal pain, diarrhea. Genitourinary: Reports: dysuria (FECULENT MATERIAL IN URINE). Musculoskeletal: Reports: no symptoms. Skin: Reports: no symptoms. Neurological/Psychological: Reports: no symptoms. 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 self Services at Home: Home Health Aide Primary Language: Wolof Smoking Status: Never Smoked ETOH Use: denies use Illicit Drug Use: denies illicit drug use Living Will? yes Functional Ability ADLs Independent: dressing, eating, toileting, bathing. Ambulation: independent IADLs Independent: shopping, housework, finances, food prep, telephone, transportation , medication admin. Exam & Diagnostic Data Last 24 Hrs of Vital Signs/I&O Vital Signs Date Time Temp Pulse Resp B/P B/P Pulse O2 O2 Flow FiO2 Mean Ox Delivery Rate 02/19 0608 97.9 72 20 138/74 94 Room Air 02/19 0518 168/74 02/18 2142 97.8 80 20 132/76 94 Room Air 02/18 1436 98.6 84 20 142/78 92 Room Air Intake & Output 02/19 1600 02/19 0800 02/19 0000 Intake Total 800 800 Output Total 700 900 Balance 100 -100 Intake, IV 800 800 Number 3 Bowel Movements Output, Urine 700 900 Physical Exam General Appearance: well developed/nourished, no apparent distress, alert, awake , comfortable Head: atraumatic, normal appearance Eyes: Bilateral: normal appearance, PERRL, EOMI. Ears, Nose, Throat: normal pharynx, normal ENT inspection Neck: normal inspection, supple Respiratory: normal breath sounds, chest non-tender Cardiovascular: regular rate/rhythm Gastrointestinal: soft, MILD TENDERNESS IN ALL QUADRANTS Back: KYPHOSIS NOTED Extremities: normal inspection, no edema Last 24 Hrs of Labs/Brad: Laboratory Tests 02/19/17 0700: Anion Gap 7, Estimated GFR > 60, BUN/Creatinine Ratio 10.0, CBC w Diff Pending, WBC Pending, RBC Pending, Hgb Pending, Hct Pending, MCV Pending, MCH Pending, RDW Pending, Plt Count Pending, MPV Pending, Gran % Pending, Lymphocytes % Pending, Monocytes % Pending, Eosinophils % Pending, Basophils % Pending, Absolute Granulocytes Pending, Absolute Lymphocytes Pending, Absolute Monocytes Pending, Absolute Eosinophils Pending, Absolute Basophils Pending, PUBS MCHC Pending Assessment/Plan Assessment/Plan This is an 86 year old female with past medical history significant for hypertension, hyperlipidemia, constipation, neurogenic bladder, hypothyroidism, OA status post bilateral knee replacement, distant history of melanoma, status post D&C 2 weeks ago for fibroid tumor who was admitted 2 days ago for with complaints of diarrhea with feculent material in urine and dysuria. CT scan abdomen and pelvis showed acute diverticulitis and suspected colovesicular fistula with small focus of air protruding from the colonic wall to the thickened bladder. Small amount of air was seen in the bladder. The current diagnosis is acute on chronic complicated diverticulitis with colovesical fistula.Patient is scheduled for surgical procedures of cystoscopy and urethral stent placement and open Bernardo procedure with removal of colovesical fistula and repair of bladder. The surgeons are Dr. Hermosillo and Dr. Tran. The medical team was consulted for preoperative risk assessment and clearance right to the surgery. Vitals this morning showed a temperature of 97.9, pulse 72, respiration 20, blood pressure 138/74, saturating 94% on room air. Labs showed a white count of 13.4(with no left shift), H&H 8.4/25.6(baseline 10- 11), platelets 446, sodium 135, potassium 3.4, normal lactate levels, normal LFTs, dirty urine with positive nitrite, large leukocyte esterase and many bacteria. Microbiology positive for gram-negative rods in urine C. difficile has been negative Recent echocardiogram from 08/21/2016 demonstrated normal LV function artery, mild enlargement of the right heart chambers with mild dilatation of the IVC, with RV systolic pressure of 46 mmHg. Assessment * Acute on chronic complicated diverticulitis with colovesical fistula * Cystoscopy and urethral stent placement and open Bernardo procedure with removal of colovesical fistula and repair of bladder next week * Urinary tract infection * Neurogenic bladder * Mild right heart chamber enlargement with estimated RVSP of 46 mmHg by echo() * Hypertension by history * Hyperlipidemia * Status post D&C for fibroid tumor * Hypothyroidism Plan * Continue monitoring CBC and BEP every day. Replete potassium. * H&H on the lower side, patient might require a blood transfusion post the procedure. * Continue IV ceftriaxone and Flagyl * Blood pressure well controlled with losartan and triamterene, continue the same. * Check TSH and free T4. Continue home dose of 100 g for now. * Please get baseline EKG and troponins prior to the surgery. * Patient denies any history of coronary artery disease. Her recent echocardiogram from 08/21/2016 demonstrated normal LV function artery, mild enlargement of the right heart chambers with mild dilatation of the IVC, with RV systolic pressure of 46 mmHg. She also underwent a nuclear stress test during May 2016, which demonstrated no evidence of ischemia. Her tobacco sampler is Dr. Arthur. Patient is going for intermediate risk procedure. She does not appear to have any major cardiac risk factor and appears to be at low risk of any major cardiac event perioperatively. However she has long-standing history of hypertension and visits her tobacco sampler regularly, it would be beneficial to obtain a cardiac clearance prior to surgery. Problem List: 1. Colovesical fistula 2. Diverticulitis of sigmoid colon 3. Leukocytosis Consult Acknowledgment - Thank you for your consult request. MOISES QUINN 02/19/17 1017: Assessment/Plan Consult Acknowledgment - Thank you for your consult request. Attending MD Review Statement Attending Statement Attending MD Statement: examined this patient, discuss w/resident/PA/PROPOSAL EDITOR, agreed w/resident/PA/PROPOSAL EDITOR, discussed with family, reviewed EMR data (avail), discussed with nursing, discussed with case mgmt, reviewed images, amended to note Attending Assessment/Plan: 86 o/f with no significant cardiac history , nuclear stress test 2015 which is negative, echo recently with normal EF, no RWMA, is going for colo-vesicular fistula repair by colo-rectal surgeon Dr Hermosillo and cystoscopy by Dr Tran. She follows tobacco sampler Dr Arthur and had recent w/u at his office. Patient is low risk for intermediate risk procedure and she can go to surgery. Thank you for the consult.
--- NOTE | 2017-02-19 10:37 | Cons- Cardiology ---
General Information and HPI Consulting Request Date of Consult: 02/19/17 Requested By: JT DAMON JR, DO Reason for Consult: Preoperative cardiac risk assessment Source of Information: patient, old records History of Present Illness: This is a very pleasant 86-year-old female with a past medical history of hypertension, mild to moderate pulmonary hypertension, prior hernia repair, complicated by exudative pleural effusions ? reactive, osteoarthritis, and remote history of melanoma who presented to [facility] with a chief complaint of diarrhea with dysuria and the fecal material in the urine. 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 The patient denies any recent episodes of chest pain, palpitations, dyspnea, orthopnea, paroxysmal nocturnal dyspnea, headache, slurring of speech, focal weakness, or increasing edema. She does complain of some mild abdominal discomfort. Allergies/Medications Allergies: Coded Allergies: omeprazole (Intermediate, GI UPSET 08/01/16) lisinopril (??? 02/03/17) codeine (Intermediate, INCREASED PAIN, N/V 08/01/16) oxycodone (From PERCOCET) (NAUSEA / VOMITING 02/03/17) Home Med List: Ibuprofen 600 MG TABLET 1 TAB PO TID PRN PAIN (Reported) with food Levothyroxine Sodium 100 MCG TABLET 1 TAB PO DAILY AC THYROID (Reported) Oxybutynin Chloride 5 MG TABLET 1 TAB PO Q48 Bladder Can use daily as tolerated. Sennosides/Docusate Sodium (Senna S Tablet) 8.6 MG-50 MG TABLET 1 TAB PO DAILY PRN CONSTIPATION (Reported) Tramadol HCl 50 MG TABLET 0.5 TAB PO Q6-PRN PRN PAIN (Reported) Current Medications: Current Medications Sig/Miguel Start time Last Medication Dose Route Stop Time Status Admin Acetaminophen 650 MG Q6PRN PRN 02/17 2230 AC PO Ceftriaxone Sodium 1,000 MG 2100 02/18 2100 AC 02/18 IV 2118 Heparin Sodium 5,000 UNIT Q8 02/18 0600 AC 02/19 (Porcine) SC 0510 Levothyroxine Sodium 0.1 MG DAILY AC 02/18 0700 AC 02/19 PO 0510 Losartan Potassium 50 MG DAILY 02/20 1000 AC PO Losartan Potassium 50 MG DAILY 02/18 0545 DC 02/19 PO 0518 Metronidazole 500 MG Q8H 02/18 0500 AC 02/19 N/A 1 UNIT IV 0510 Ondansetron HCl 4 MG Q6-PRN PRN 02/17 2245 IV Potassium Chloride 20 MEQ Q10H 02/18 0745 AC 02/19 Dextrose/Sodium 1,000 ML IV 0510 Chloride Triamterene/HCTZ 1 CAP DAILY 02/19 1000 AC 02/19 PO 0847 Triamterene/HCTZ 1 CAP DAILY 02/18 0745 DC 02/18 PO 0938 Review of Systems Review of Systems: Review of systems as per HPI. The remainder of a 10 point review of systems was reviewed and was otherwise negative. 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 self Services at Home: Home Health Aide Primary Language: Cameroonian Smoking Status: Never Smoked ETOH Use: denies use Illicit Drug Use: denies illicit drug use Living Will? yes Functional Ability ADLs Independent: dressing, eating, toileting, bathing. Ambulation: independent IADLs Independent: shopping, housework, finances, food prep, telephone, transportation , medication admin. Exam & Diagnostic Data Vital Signs and I&O Vital Signs Date Time Temp Pulse Resp B/P B/P Pulse O2 O2 Flow FiO2 Mean Ox Delivery Rate 02/19 0608 97.9 72 20 138/74 94 Room Air 02/19 0518 168/74 02/18 2142 97.8 80 20 132/76 94 Room Air 02/18 1436 98.6 84 20 142/78 92 Room Air Intake & Output 02/19 1600 02/19 0800 / 0000 02/18 1600 02/18 0800 02/18 0000 Intake Total 800 800 210 Output Total 319 601 6982 50 Balance 100 -100 -1400 210 -50 Intake, IV 800 800 150 Intake, Oral 60 Number 3 2 Bowel Movements Output, Urine 526 204 3799 50 Patient 150 lb Weight Weight Reported by Patient Measurement Method Physical Exam: General: no apparent distress. Alert. Eyes: No obvious scleral icterus. HEENT: No jugular venous distention or abnormal jugular venous pulsations. Cardiovascular: Normal intensity S1/S2. PMI not grossly displaced. Respiratory: Mildly decreased air entry at the bases Abdomen: Mildly distended without guarding Musculoskeletal: No clubbing or cyanosis noted, no edema Skin: Warm Neurologic: No gross focal deficits noted. Labs/Brad Results: Laboratory Tests 02/19 02/18 0700 0615 Chemistry Sodium (137 - 145 mmol/L) 135 L 137 Potassium (3.5 - 5.1 mmol/L) 3.4 L 3.0 L Chloride (98 - 107 mmol/L) 102 103 Carbon Dioxide (22 - 30 mmol/L) 26 25 Anion Gap (5 - 16) 7 9 BUN (7 - 17 mg/dL) 8 8 Creatinine (0.5 - 1.0 mg/dL) 0.8 0.7 Estimated GFR (>60 ml/min) > 60 > 60 BUN/Creatinine Ratio (7 - 25 %) 10.0 11.4 Hematology CBC w Diff NO MAN DIFF REQ NO MAN DIFF REQ WBC (4.8 - 10.8 /CUMM) 11.2 H 13.4 H RBC (4.20 - 5.40 /CUMM) 3.08 L 3.14 L Hgb (12.0 - 16.0 G/DL) 8.2 L 8.4 L Hct (37 - 47 %) 25.3 L 25.6 L MCV (81.0 - 99.0 FL) 81.9 81.5 MCH (27.0 - 31.0 PG) 26.7 L 26.7 L RDW (11.5 - 14.5 %) 15.8 H 14.8 H Plt Count (130 - 400 /CUMM) 413 H 446 H MPV (7.4 - 10.4 FL) 7.1 L 7.0 L Gran % (42.2 - 75.2 %) 85.0 H 89.3 H Lymphocytes % (20.5 - 51.1 %) 8.6 L 5.7 L Monocytes % (1.7 - 9.3 %) 5.4 4.7 Eosinophils % (0 - 5 %) 0.8 0.2 Basophils % (0.0 - 2.0 %) 0.2 0.1 Absolute Granulocytes (1.4 - 6.5 /CUMM) 9.5 H 11.9 H Absolute Lymphocytes (1.2 - 3.4 /CUMM) 1.0 L 0.8 L Absolute Monocytes (0.10 - 0.60 /CUMM) 0.6 0.6 Absolute Eosinophils (0.0 - 0.7 /CUMM) 0.1 0 Absolute Basophils (0.0 - 0.2 /CUMM) 0 0 PUBS MCHC (33.0 - 37.0 G/DL) 32.6 L 32.8 L 02/17 02/17 1856 1710 Chemistry Lactic Acid (0.7 - 2.1 mmol/L) 0.7 Coagulation PT (9.4 - 12.5 SEC) 13.2 H INR (0.90 - 1.19) 1.26 H APTT (25 - 37 SEC) 32 Urines Urinalysis MOD H Urine Color (YEL,AMB,STR) BROWN H Urine Clarity (CLEAR) CLDY H Urine pH (5.0 - 8.0) 6.0 Ur Specific [place] (1.001 - 1.035) 1.025 Urine Protein (NEG,<30 MG/DL) 100 H Urine Ketones (NEG) NEG Urine Nitrite (NEG) POS H Urine Bilirubin (NEG) NEG Urine Urobilinogen (0.1 - 1.0 EU/dl) 1.0 Ur Leukocyte Esterase (NEG) LARGE H Ur Microscopic SEDIMENT EXAMINED Urine RBC (0 - 5 /HPF) 5-10 H Urine WBC (0 - 2 /HPF) > 75 H Ur Epithelial Cells (NONE,FEW) MOD H Urine Bacteria (NEG/NONE) MANY H Urine Mucus (FEW,NONE) FEW Urine Hemoglobin (NEG) LARGE H Urine Glucose (N MG/DL) NEG 02/17 1352 Chemistry Sodium (137 - 145 mmol/L) 137 Potassium (3.5 - 5.1 mmol/L) 3.2 L Chloride (98 - 107 mmol/L) 102 Carbon Dioxide (22 - 30 mmol/L) 26 Anion Gap (5 - 16) 9 BUN (7 - 17 mg/dL) 12 Creatinine (0.5 - 1.0 mg/dL) 0.8 Estimated GFR (>60 ml/min) > 60 BUN/Creatinine Ratio (7 - 25 %) 15.0 Glucose (65 - 99 mg/dL) 117 H Lactic Acid (0.7 - 2.1 mmol/L) 0.9 Calcium (8.4 - 10.2 mg/dL) 8.4 Total Bilirubin (0.2 - 1.3 mg/dL) 0.3 AST (14 - 36 U/L) 15 ALT (9 - 52 U/L) 30 Alkaline Phosphatase (<127 U/L) 82 Total Protein (6.3 - 8.2 g/dL) 6.0 L Albumin (3.5 - 5.0 g/dL) 2.8 L Globulin (1.9 - 4.2 gm/dL) 3.2 Albumin/Globulin Ratio (1.1 - 2.2 %) 0.9 L Amylase (30 - 110 U/L) < 30 L Lipase (23 - 300 U/L) 11 L Hematology CBC w Diff NO MAN DIFF REQ WBC (4.8 - 10.8 /CUMM) 13.5 H RBC (4.20 - 5.40 /CUMM) 3.15 L Hgb (12.0 - 16.0 G/DL) 8.5 L Hct (37 - 47 %) 25.9 L MCV (81.0 - 99.0 FL) 82.2 MCH (27.0 - 31.0 PG) 26.9 L RDW (11.5 - 14.5 %) 15.9 H Plt Count (130 - 400 /CUMM) 414 H MPV (7.4 - 10.4 FL) 6.8 L Gran % (42.2 - 75.2 %) 85.3 H Lymphocytes % (20.5 - 51.1 %) 8.6 L Monocytes % (1.7 - 9.3 %) 5.4 Eosinophils % (0 - 5 %) 0.4 Basophils % (0.0 - 2.0 %) 0.3 Absolute Granulocytes (1.4 - 6.5 /CUMM) 11.5 H Absolute Lymphocytes (1.2 - 3.4 /CUMM) 1.2 Absolute Monocytes (0.10 - 0.60 /CUMM) 0.7 H Absolute Eosinophils (0.0 - 0.7 /CUMM) 0 Absolute Basophils (0.0 - 0.2 /CUMM) 0 PUBS MCHC (33.0 - 37.0 G/DL) 32.7 L Diagnostic Data EKG Results Tracing was personally reviewed and shows sinus rhythm at 66 bpm with no obvious ST elevations. Other Results Nuclear stress test from 05/2016 showed normal ejection fraction with no ischemia Previous echocardiogram revealed normal left ventricular ejection fraction Abd CT: Mid sigmoid colonic wall thickening and inflammatory changes which are most indicative for acute diverticulitis. No free air or drainable fluid collection. 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 Mild amount of air in the bladder. Correlate for any history of recent Montemayor catheterization. Assessment/Plan Assessment/Plan 1. Symptomatic colonic vesicular fistula 2. History of hypertension 3. History of mild to moderate pulmonary hypertension by echocardiogram 4. History of prior hernia repair, complicated by postoperative exudative pleural effusion 5. History of arthritis The patient is currently hemodynamically stable with no evidence of decompensated congestive heart failure by physical exam. No evidence of acute coronary syndrome. Prior nuclear stress test as above with no evidence of regional wall motion abnormalities or ischemia. Current cardiac status appears stable and she is estimated to be at mildly elevated cardiac risk for her planned surgery based on age/clinical history.Given the previous postoperative pleural effusion I would recommend obtaining a baseline chest x-ray prior to surgery. Please do not hesitate to contact me with any additional questions or concerns. Babak Grier MD [facility] Consult Acknowledgment - Thank you for your consult request.
[2017-02-19 14:28] VITALS: BP 124/58
--- NOTE | 2017-02-19 15:47 | Cons- Urology ---
General Information and HPI Consulting Request Date of Consult: 02/19/17 Requested By: JT HERMOSILLO JR, DO Reason for Consult: colovesical fistula Source of Information: patient Exam Limitations: no limitations History of Present Illness: 86 year old female hx of hypertension, hyperlipidemia, hypothyroidism s/p D&C 2 weeks ago for fibroid tumor who was admitted 2 days ago for with complaints of diarrhea with feculent material in urine and dysuria. She had a colonoscopy in Jun and was told she had diverticulitis but no other abnormalities. She admits to new onset urge urinary incontinence requiring Depends and she gets soaked. She was started stella vesicare with some benefit but less so recently. She has no hx of UTIs or pyelonephritis. She admits to having foul smelling urine recently however. CT scan abdomen and pelvis showed acute diverticulitis and suspected colovesicular fistula with small focus of air protruding from the colonic wall to the thickened bladder. Small amount of air was seen in the bladder. 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 Patient is scheduled for surgery with Dr. Hermosillo and Marc for cystoscopy and bilateral uretral stent placement and open Bernardo procedure with removal of colovesical fistula and repair of bladder. Allergies/Medications Allergies: Coded Allergies: omeprazole (Intermediate, GI UPSET 08/01/16) lisinopril (??? 02/03/17) codeine (Intermediate, INCREASED PAIN, N/V 08/01/16) oxycodone (From PERCOCET) (NAUSEA / VOMITING 02/03/17) Home Med List: Ibuprofen 600 MG TABLET 1 TAB PO TID PRN PAIN (Reported) with food Levothyroxine Sodium 100 MCG TABLET 1 TAB PO DAILY AC THYROID (Reported) Oxybutynin Chloride 5 MG TABLET 1 TAB PO Q48 Bladder Can use daily as tolerated. Sennosides/Docusate Sodium (Senna S Tablet) 8.6 MG-50 MG TABLET 1 TAB PO DAILY PRN CONSTIPATION (Reported) Tramadol HCl 50 MG TABLET 0.5 TAB PO Q6-PRN PRN PAIN (Reported) Current Medications: Current Medications Sig/Miguel Start time Last Medication Dose Route Stop Time Status Admin Acetaminophen 650 MG Q6PRN PRN 02/17 2230 AC PO Ceftriaxone Sodium 1,000 MG 2100 02/18 2100 AC 02/18 IV 2118 Heparin Sodium 5,000 UNIT Q8 02/18 0600 AC 02/19 (Porcine) SC 1335 Levothyroxine Sodium 0.1 MG DAILY AC 02/18 0700 AC 02/19 PO 0510 Losartan Potassium 50 MG DAILY 02/20 1000 AC PO Losartan Potassium 50 MG DAILY 02/18 0545 DC 02/19 PO 0518 Metronidazole 500 MG Q8H 02/18 0500 AC 02/19 N/A 1 UNIT IV 1238 Ondansetron HCl 4 MG Q6-PRN PRN 02/17 2245 IV Patient Medication 1 ED .STK-MED ONE 02/19 1403 DC Teaching ED 02/19 1404 Potassium Chloride 20 MEQ Q10H 02/18 0745 02/19 Dextrose/Sodium 1,000 ML IV 0510 Chloride Triamterene/HCTZ 1 CAP DAILY 02/19 1000 AC 02/19 PO 0847 Triamterene/HCTZ 1 CAP DAILY 02/18 0745 DC 02/18 PO 0938 Past History Medical History Neurological: NONE EENT: NONE Cardiovascular: hypertension, hyperlipidemia Respiratory: NONE Gastrointestinal: constipation, ABDOMINAL HERNIA Hepatic: sp cholecystectomy Renal: NONE Musculoskeletal: degen joint disease Psychiatric: NONE Endocrine: hypothyroidism Blood Disorders: NONE 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 Home Who Do You Live With? self Services at Home: Home Health Aide Primary Language: Greek Smoking Status: Never Smoked ETOH Use: denies use Illicit Drug Use: denies illicit drug use Living Will? yes Functional Ability ADLs Independent: dressing, eating, toileting, bathing. Ambulation: independent IADLs Independent: shopping, housework, finances, food prep, telephone, transportation , medication admin. Review of Systems Review of Systems Constitutional: Reports: no symptoms. EENTM: Reports: no symptoms. Cardiovascular: Reports: no symptoms. Respiratory: Reports: no symptoms. GI: Reports: diarrhea. Genitourinary: Reports: urgency (foul smelling urine). Musculoskeletal: Reports: joint pain. Skin: Reports: no symptoms. Neurological/Psychological: Reports: no symptoms. Hematologic/Endocrine: Reports: no symptoms. Immunologic/Allergic: Reports: no symptoms. Exam & Diagnostic Data Vital Signs and I&O Vital Signs Date Time Temp Pulse Resp B/P B/P Pulse O2 O2 Flow FiO2 Mean Ox Delivery Rate 02/19 1428 98.2 84 20 124/58 93 Room Air 02/19 0608 97.9 72 20 138/74 94 Room Air 02/19 0518 168/74 02/18 2142 97.8 80 20 132/76 94 Room Air Intake & Output 02/19 1600 02/19 0800 02/19 0000 02/18 1600 02/18 0800 02/18 0000 Intake Total 1600 800 800 210 Output Total 800 832 674 1097 50 Balance 800 100 -100 -1400 210 -50 Intake, IV 800 800 800 150 Intake, Oral 800 60 Number 3 3 2 Bowel Movements Output, Urine 800 238 864 0454 50 Patient 68.039 kg 68.039 kg Weight Weight Reported by Patient Measurement Method Physical Exam General Appearance: well developed/nourished, no apparent distress, alert, awake , comfortable Head: atraumatic, normal appearance Eyes: Bilateral: normal appearance. Ears, Nose, Throat: normal ENT inspection Neck: normal inspection Respiratory: normal breath sounds Cardiovascular: regular rate/rhythm Gastrointestinal: soft, non-tender Rectal: deferred Neurologic/Psych: awake, alert, oriented x 3 Cranial Nerves: normal hearing, normal speech Skin: intact, normal color, warm/dry Last 24 Hours of Labs: Laboratory Tests 02/19 0700 Chemistry Sodium (137 - 145 mmol/L) 135 L Potassium (3.5 - 5.1 mmol/L) 3.4 L Chloride (98 - 107 mmol/L) 102 Carbon Dioxide (22 - 30 mmol/L) 26 Anion Gap (5 - 16) 7 BUN (7 - 17 mg/dL) 8 Creatinine (0.5 - 1.0 mg/dL) 0.8 Estimated GFR (>60 ml/min) > 60 BUN/Creatinine Ratio (7 - 25 %) 10.0 Hematology CBC w Diff NO MAN DIFF REQ WBC (4.8 - 10.8 /CUMM) 11.2 H RBC (4.20 - 5.40 /CUMM) 3.08 L Hgb (12.0 - 16.0 G/DL) 8.2 L Hct (37 - 47 %) 25.3 L MCV (81.0 - 99.0 FL) 81.9 MCH (27.0 - 31.0 PG) 26.7 L RDW (11.5 - 14.5 %) 15.8 H Plt Count (130 - 400 /CUMM) 413 H MPV (7.4 - 10.4 FL) 7.1 L Gran % (42.2 - 75.2 %) 85.0 H Lymphocytes % (20.5 - 51.1 %) 8.6 L Monocytes % (1.7 - 9.3 %) 5.4 Eosinophils % (0 - 5 %) 0.8 Basophils % (0.0 - 2.0 %) 0.2 Absolute Granulocytes (1.4 - 6.5 /CUMM) 9.5 H Absolute Lymphocytes (1.2 - 3.4 /CUMM) 1.0 L Absolute Monocytes (0.10 - 0.60 /CUMM) 0.6 Absolute Eosinophils (0.0 - 0.7 /CUMM) 0.1 Absolute Basophils (0.0 - 0.2 /CUMM) 0 PUBS MCHC (33.0 - 37.0 G/DL) 32.6 L Assessment/Plan Assessment/Plan 86yo female with a colovesical fistula due to diverticulitis. She will have Bernardo's with Dr. Hermosillo and bilateral ureteral stents with cystoscopy and possible bladder repair with me (Urology) next week. Her urine is clear today. Min abd discomfort. Explained what urologic portion would entail and answered all questions. It may improve her UUI. Will FU next week. Consult Acknowledgment - Thank you for your consult request.
[2017-02-19 23:08] VITALS: BP 132/60
[2017-02-20 06:00] VITALS: BP 148/70
--- NOTE | 2017-02-20 09:37 | PN- General Surgery ---
Surgical Brief Attending Note Brief Attending Note: Pt denies any abdominal pain, tolerating regular diet. Montemayor in place. AVSS NAD, AAO x3 Abdomen: soft, NT, ND, no rebound/guarding A/P: A 86 year-old woman with colovesical fistula - Cardiology consult is appreciated, needs preop CXR - Dr. Tran' input is appreciated - Cont. present care - Will be going to OR next week
[2017-02-20 10:35] LABS: ABSOLUTE BASOPHIL COUNT 0 /CUMM (0.0-0.2); ABSOLUTE EOSINOPHIL COUNT 0.2 /CUMM (0.0-0.7); ABSOLUTE GRANULOCYTE CT 5.2 /CUMM (1.4-6.5); ABSOLUTE LYMPH COUNT 1.1 /CUMM (1.2-3.4); ABSOLUTE MONOCYTE COUNT 0.5 /CUMM (0.10-0.60); BASOPHIL % 0.4 % (0.0-2.0); EOSINOPHIL % 2.9 % (0-5); HEMATOCRIT 26.2 % (37-47); MEAN CORPUSCULAR HGB 26.5 PG (27.0-31.0); MEAN CORPUSCULAR HGB CONC 32.2 G/DL (33.0-37.0); MEAN CORPUSCULAR VOLUME 82.2 FL (81.0-99.0); MEAN PLATELET VOLUME 7.1 FL (7.4-10.4); PLATELET COUNT 462 /CUMM (130-400); RED BLOOD CELL CT 3.19 /CUMM (4.20-5.40)
--- NOTE | 2017-02-20 13:53 | PN- Att Addend ---
Attending Addendum Attending Brief Note Patient seen and examined. Plan of care discussed with the medical team and the patient. Available lab work and radiology test reports were reviewed. Patient has no new complaints. Vital Signs Date Time Temp Pulse Resp B/P B/P Pulse O2 O2 Flow FiO2 Mean Ox Delivery Rate 02/20 0927 68 148/70 02/20 0600 97.8 68 18 148/70 95 Room Air 02/19 2308 98.4 74 20 132/60 98 Room Air 02/19 1428 98.2 84 20 124/58 93 Room Air Intake & Output 02/20 1600 02/20 0800 02/20 0000 Intake Total 920 1000 Output Total 500 400 Balance 420 600 Intake, IV 800 400 Intake, Oral 120 600 Number 1 2 Bowel Movements Output, Urine 500 400 Exam: General: Patient awake alert oriented without any distress CVS: S1 plus S2 without any murmur or gallops Chest: Few scattered crepitation without any wheeze. There is no respiratory distress. 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: Awake alert oriented without any focal neuro deficit and follows command appropriately Extremities: No edema; no clubbing or cyanosis noted Laboratory Tests 02/21 940 Chemistry Sodium (137 - 145 mmol/L) 137 Potassium (3.5 - 5.1 mmol/L) 3.8 Chloride (98 - 107 mmol/L) 104 Carbon Dioxide (22 - 30 mmol/L) 25 Anion Gap (5 - 16) 8 BUN (7 - 17 mg/dL) 9 Creatinine (0.5 - 1.0 mg/dL) 0.8 Estimated GFR (>60 ml/min) > 60 BUN/Creatinine Ratio (7 - 25 %) 11.3 Hematology CBC w Diff NO MAN DIFF REQ WBC (4.8 - 10.8 /CUMM) 7.0 RBC (4.20 - 5.40 /CUMM) 3.19 L Hgb (12.0 - 16.0 G/DL) 8.4 L Hct (37 - 47 %) 26.2 L MCV (81.0 - 99.0 FL) 82.2 MCH (27.0 - 31.0 PG) 26.5 L RDW (11.5 - 14.5 %) 16.0 H Plt Count (130 - 400 /CUMM) 462 H MPV (7.4 - 10.4 FL) 7.1 L Gran % (42.2 - 75.2 %) 74.0 Lymphocytes % (20.5 - 51.1 %) 15.5 L Monocytes % (1.7 - 9.3 %) 7.2 Eosinophils % (0 - 5 %) 2.9 Basophils % (0.0 - 2.0 %) 0.4 Absolute Granulocytes (1.4 - 6.5 /CUMM) 5.2 Absolute Lymphocytes (1.2 - 3.4 /CUMM) 1.1 L Absolute Monocytes (0.10 - 0.60 /CUMM) 0.5 Absolute Eosinophils (0.0 - 0.7 /CUMM) 0.2 Absolute Basophils (0.0 - 0.2 /CUMM) 0 PUBS MCHC (33.0 - 37.0 G/DL) 32.2 L Assessment plan * Colovesical fistula awaiting surgery on Wednesday * History of hypertension currently stable * Hypokalemia-improved
[2017-02-20 14:40] VITALS: BP 138/60
[2017-02-20 22:12] VITALS: BP 136/62
[2017-02-21 07:16] VITALS: BP 155/67
--- NOTE | 2017-02-21 09:25 | PN- Student ---
WALT MORALES 02/21/17 0910: Subjective Subjective: Patient is currently awake, alert and comfortable. She denies any pain, cramping or discomfort at this time. She is tolerating food and drink PO well. She gets up to sit in the chair a few times per day. She states she still has diarrhea but it's no longer painful. She states that she has been experiencing an itch on her back that she believes is related to one of the medications she is getting, but that it resolves with benadryl. No dyspnea/SOB/chest pain. Objective Objective: Vital Signs Result Date Time Pulse Ox 93 02/21 07 B/P 155/67 02/21 0716 Temp 97.7 02/21 0716 Pulse 67 02/21 0716 Resp 20 02/21 07 O2 Delivery Room Air 02/20 2212 Intake & Output 02/21 0000 02/20 1600 02/20 0800 Intake Total 520 920 Output Total 1000 180 500 Balance -480 -180 420 Intake, IV 400 800 Intake, Oral 120 120 Number 3 4 1 Bowel Movements Output, Urine 1000 180 500 General: awake, alert, oriented, in no apparent distress Lungs:CTAB, no wheezes, rhonchi or rales Heart: RRR, no M,R,G Abdomen: hyperactive bowel sounds, soft, non-distended, tympanic, non-tender on light and deep palpation Extremities: ALPS in place bilaterally on lower extremities, no edema/erythema, feet are warm, gross motor and sensation in tact bilaterally Starr: in place with approximately 325 cc slightly dark yellow urine IV in place in right dorsum of wrist with running line Results Results: Laboratory Tests 02/20/17 0940: Anion Gap 8, Estimated GFR > 60, BUN/Creatinine Ratio 11.3, CBC w Diff NO MAN DIFF REQ, RBC 3.19 L, MCV 82.2, MCH 26.5 L, RDW 16.0 H, MPV 7.1 L, Gran % 74.0, Lymphocytes % 15.5 L, Monocytes % 7.2, Eosinophils % 2.9, Basophils % 0.4 , Absolute Granulocytes 5.2, Absolute Lymphocytes 1.1 L, Absolute Monocytes 0.5 , Absolute Eosinophils 0.2, Absolute Basophils 0, PUBS MCHC 32.2 L 02/19/17 0700: Anion Gap 7, Estimated GFR > 60, BUN/Creatinine Ratio 10.0, CBC w Diff NO MAN DIFF REQ, RBC 3.08 L, MCV 81.9, MCH 26.7 L, RDW 15.8 H, MPV 7.1 L, Gran % 85.0 H, Lymphocytes % 8.6 L, Monocytes % 5.4, Eosinophils % 0.8, Basophils % 0.2, Absolute Granulocytes 9.5 H, Absolute Lymphocytes 1.0 L, Absolute Monocytes 0.6, Absolute Eosinophils 0.1, Absolute Basophils 0, PUBS MCHC 32.6 L Microbiology 02/18 1500 STOOL: Clostridium difficile Toxin A & B - COMP Assessment/Plan Assessment: This is an 86 y/o female in-hospital day 4 for diarrhea & colovesicular fistula. She denies pain/ discomfort, but has a pruritic sensation in her back that is resolved with benadryl. She is awaiting surgery this week. Plan: Will discuss with attending for date of surgery, pre-op tonight if OR tomorrow Continue low residue diet Strict I's and O's Continue starr due to colovesicular fistula Hep lock IVF Continue ALPS and OOB, heparin subq Continue Abx as ordered for suspected infection Benadryl PRN for itch Will discuss with attending DERRELL OCONNOR 02/21/17 1016: Assessment/Plan Plan: Pt examined, data reviewed with student. Agree with PAS note above. Will pre- op pt today if going to OR tomorrow. Will get pre-op CXR per cardiology recs.
--- NOTE | 2017-02-21 12:47 | PN- Att Addend ---
Attending Addendum Attending Brief Note Patient seen and examined. Plan of care discussed with the medical team and the patient. Available lab work and radiology test reports were reviewed. Patient has no new complaints. Vital Signs Date Time Temp Pulse Resp B/P B/P Pulse O2 O2 Flow FiO2 Mean Ox Delivery Rate 02/21 0926 67 155/67 02/21 0716 97.7 67 20 155/67 93 02/20 2212 98.4 76 20 136/62 96 Room Air 02/20 1440 99.6 82 20 138/60 94 Room Air Intake & Output 02/21 1600 02/21 0800 02/21 0000 Intake Total 800 520 Output Total 1050 1000 Balance -250 -480 Intake, IV 800 400 Intake, Oral 120 Number 3 Bowel Movements Output, Urine 1050 1000 Exam: General: Patient awake alert oriented without any distress CVS: S1 plus S2 without any murmur or gallops Chest: Few scattered crepitation without any wheeze. There is no respiratory distress. 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 * History of hypertension currently stable * Hypokalemia-improved
--- NOTE | 2017-02-21 13:10 | PN- General Surgery ---
Surgical Brief Attending Note Brief Attending Note: Pt denies any abdominal pain, tolerating regular diet. Montemayor in place. AVSS NAD, AAO x3 Abdomen: soft, NT, ND, no rebound/guarding A/P: A 86 year-old woman with colovesical fistula - Cardiology consult is appreciated, needs preop CXR - Dr. Tran' input is appreciated - Cont. present care - Will be going to OR next week. She is NOT scheduled for OR on Wednesday, .
[2017-02-21 15:07] VITALS: BP 154/60
[2017-02-21 22:23] VITALS: BP 142/64
--- NOTE | 2017-02-22 07:07 | PN- General Surgery ---
See Addendum Subjective Subjective: The patient was seen this morning. She has no complaints and denies any abdominal pain. She is tolerating a diet without nausea. Objective Vital Signs and I&Os Vital Signs Date Time Temp Pulse Resp B/P B/P Pulse O2 O2 Flow FiO2 Mean Ox Delivery Rate 02/21 2223 98.2 81 20 142/64 95 Room Air 02/21 1507 98.5 84 20 154/60 97 Room Air 02/21 0926 67 155/67 02/21 0716 97.7 67 20 155/67 93 Intake & Output 02/22 0800 02/22 0000 02/21 1600 02/21 0800 02/21 0000 02/20 1600 Intake Total 798 652 8951 800 520 Output Total 8124 430 0179 1000 180 Balance 680 -320 295 -250 -480 -180 Intake, IV 200 200 575 800 400 Intake, Oral 480 480 520 120 Number 2 2 3 4 Bowel Movements Output, Urine 0243 021 5800 1000 180 Physical Exam: Gen.: Alert and in no obvious distress Skin: Warm and dry Abdomen: Soft, nontender, nondistended bowel sounds positive. Extremities: Bilateral lobes was warm without calf tenderness. Assessment/Plan Assessment/Plan Assessment: 86-year-old female with a colovesicular fistula. We are attempting to coordinate care with urology with regards to a time of surgery this week. Plan: IV antibiotics Keep Montemayor catheter Out of bed GI and DVT prophylaxis We will order a preoperative chest x-ray as recommended by cardiology Core Measures/Miscellaneous Venous Thromboembolism VTE Risk Factors: Age > 40, Surgery VTE Contraindications: No Contraindications VTE Diagnosis: No VTE Type: NONE VTE Confirmed by (Test): NONE Beta Derrick Is Beta Derrick a Home Med? No Antibiotics Is Patient on Antibiotics? Yes If Yes: infection
[2017-02-22 07:19] VITALS: BP 152/68
--- NOTE | 2017-02-22 07:34 | PN- Medicine Consult ---
See Addendum MANUELITO FAM 02/22/17 0720: Assessment/Plan Assessment/Plan Assessment: This is an 86 year old female with past medical history significant for hypertension, hyperlipidemia, constipation, neurogenic bladder, hypothyroidism, OA status post bilateral knee replacement, distant history of melanoma, status post D&C 2 weeks ago for fibroid tumor who was admitted complaints of diarrhea with feculent material in urine and dysuria. CT scan abdomen and pelvis showed acute diverticulitis and suspected colovesicular fistula with small focus of air protruding from the colonic wall to the thickened bladder. Small amount of air was seen in the bladder. 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 * Acute on chronic complicated diverticulitis with colovesical fistula * Cystoscopy and urethral stent placement and open Bernardo procedure with removal of colovesical fistula and repair of bladder this week * Urinary tract infection, urine growing Ecoli * Neurogenic bladder * Mild right heart chamber enlargement with estimated RVSP of 46 mmHg by echo() * Hypertension by history * Hyperlipidemia * Status post D&C for fibroid tumor * Hypothyroidism Plan: * White count improved. Afebrile overnight. * Hypokalemia improved. Monitor electrolytes and replete as needed. * H&H on the lower side, patient might require a blood transfusion during/post the procedure. * Continue IV ceftriaxone and Flagyl * Blood pressure well controlled with losartan and triamterene, continue the same. * Get preoperative CXR prior to surgery given h/o pleural effusions. Patient f/u with Dr Parisi. * Patient is hemodynamically stable at this point, estimated to be at mildly elevated cardiac risk for surgery based on age and clinical history. Has been cleared from medical standpoint. * Continue GI and DVT prophylaxis * Date of surgery to be confirmed by Surgery and Urology. Problem List: 1. Colovesical fistula 2. Diverticulitis of sigmoid colon Subjective Subjective: Patient examined at bedside. Offers no complaints. She is tolerating a diet well. Montemayor catheter in, draining clear urine. Date of surgery not comfirmed yet. Review of Systems Constitutional: Reports: no symptoms. EENTM: Reports: no symptoms. Cardiovascular: Reports: no symptoms. Respiratory: Reports: no symptoms. Gastrointestinal: Reports: changes in stool. Genitourinary: Reports: no symptoms. Musculoskeletal: Reports: no symptoms. Skin: Reports: no symptoms. Neurological/Psychological: Reports: no symptoms. Hematologic/Endocrine: Reports: no symptoms. Objective Last 24 Hrs of Vital Signs/I&O Vital Signs Date Time Temp Pulse Resp B/P B/P Pulse O2 O2 Flow FiO2 Mean Ox Delivery Rate 02/22 0719 98.3 73 20 152/68 95 Room Air 02/21 2223 98.2 81 20 142/64 95 Room Air 02/21 1507 98.5 84 20 154/60 97 Room Air 02/21 0926 67 155/67 Intake & Output 02/22 0800 02/22 0000 02/21 1600 Intake Total 691 543 1580 Output Total 1700 1000 800 Balance -1020 -320 295 Intake, IV 200 200 575 Intake, Oral 480 480 520 Number 2 2 Bowel Movements Output, Urine 1700 1000 800 Physical Exam General Appearance: well developed/nourished, no apparent distress, alert, awake Head: atraumatic, normal appearance Ears, Nose, Throat: normal pharynx, normal ENT inspection Neck: normal inspection, supple Cardiovascular: regular rate/rhythm Respiratory: diminished breath sounds at the bases, mild crypts. Abdomen: normal bowel sounds, soft Back: kyphosis noted Extremities: normal inspection, normal capillary refill, no edema Current Medications: Current Medications Sig/Miguel Start time Last Medication Dose Route Stop Time Status Admin Acetaminophen 650 MG Q6PRN PRN 02/17 2230 AC PO Ceftriaxone Sodium 1,000 MG 2100 02/18 2100 AC 02/21 IV 2111 Diphenhydramine HCl 50 MG .STK-MED ONE 02/21 2101 DC IM 02/21 2102 Diphenhydramine HCl 25 MG Q4 HRS NEEDED PRN 02/20 223 AC 02/21 IV 211 Heparin Sodium 5,000 UNIT Q8 02/18 06 AC 02/22 (Porcine) SC 0523 Levothyroxine Sodium 0.1 MG DAILY AC 02/18 0700 AC 02/22 PO 0523 Losartan Potassium 50 MG DAILY 02/20 1000 AC 02/21 PO 0926 Metronidazole 500 MG Q8H 02/18 0500 02/22 N/A 1 UNIT IV 0523 Ondansetron HCl 4 MG Q6-PRN PRN 02/17 2245 AC IV Potassium Chloride 20 MEQ Q10H 02/18 0745 DC 02/21 Dextrose/Sodium 1,000 ML IV 0247 Chloride Triamterene/HCTZ 1 CAP DAILY 02/19 1000 AC 02/21 PO 09 Results Last 24 Hrs Lab/Brad Results: e
--- NOTE | 2017-02-22 10:27 | PN- Cardiology ---
Subjective Subjective: Still with some diarrhea but no abdominal pain. No chest pain or dyspnea. Objective Vital Signs and I&Os Vital Signs Date Time Temp Pulse Resp B/P B/P Pulse O2 O2 Flow FiO2 Mean Ox Delivery Rate 02/22 0719 98.3 73 20 152/68 95 Room Air 02/21 2223 98.2 81 20 142/64 95 Room Air 02/21 1507 98.5 84 20 154/60 97 Room Air Intake & Output 02/22 1600 02/22 0800 02/22 0000 02/21 1600 02/21 0800 02/21 0000 Intake Total 615 659 9331 800 520 Output Total 1700 0083 785 2636 1000 Balance -1020 -320 295 -250 -480 Intake, IV 200 200 575 800 400 Intake, Oral 480 480 520 120 Number 2 2 3 Bowel Movements Output, Urine 1700 8732 000 4782 1000 Physical Exam: General: no apparent distress. Alert. Eyes: No obvious scleral icterus. HEENT: No jugular venous distention or abnormal jugular venous pulsations. Cardiovascular: Normal intensity S1/S2. PMI not grossly displaced. Respiratory: Clear to auscultation bilaterally Abdomen: Mildly distended without guarding Musculoskeletal: No clubbing or cyanosis noted, no edema Skin: Warm Neurologic: No gross focal deficits noted. Current Medications: Current Medications Sig/Miguel Start time Last Medication Dose Route Stop Time Status Admin Acetaminophen 650 MG Q6PRN PRN 02/17 2230 AC PO Ceftriaxone Sodium 1,000 MG 02/18 AC 02/21 IV 211 Diphenhydramine HCl 50 MG .STK-MED ONE 02/21 2101 DC IM 02/21 2102 Diphenhydramine HCl 25 MG Q4 HRS NEEDED PRN 02/20 2230 AC 02/21 IV 211 Heparin Sodium 5,000 UNIT Q8 02/18 600 AC 02/22 (Porcine) SC 0523 Levothyroxine Sodium 0.1 MG DAILY AC 02/18 07 AC 02/22 PO 05 Losartan Potassium 50 MG DAILY 02/20 1000 AC 02/21 PO 09 Metronidazole 500 MG Q8H 02/18 0500 AC 02/22 N/A 1 UNIT IV 0523 Ondansetron HCl 4 MG Q6-PRN PRN 02/17 2245 AC IV Triamterene/HCTZ 1 CAP DAILY 02/19 1000 AC 02/21 PO 09 Assessment/Plan Assessment/Plan 1. Symptomatic colonic vesicular fistula 2. History of hypertension 3. History of mild to moderate pulmonary hypertension by echocardiogram 4. History of prior hernia repair, complicated by postoperative exudative pleural effusion 5. History of arthritis 6. Anemia Remains hemodynamically stable with no evidence of acute coronary syndrome or decompensated congestive heart failure. Follow-up baseline chest x-ray prior to surgery. Babak Grier MD [facility] Continue telemetry? Not applicable
[2017-02-22 14:52] VITALS: BP 140/60
--- NOTE | 2017-02-22 15:04 | RADIOLOGY REPORT ---
EXAMINATION: XR CHEST CLINICAL INFORMATION: Preoperative evaluation. Colovesical fistula. COMPARISON: CT scan of the abdomen and pelvis dated 02/17/2017. CT scan of the chest dated 10/30/2016. Chest x-ray dated 09/03/2016. TECHNIQUE: 2 views of the chest were obtained. FINDINGS: The cardiomediastinal silhouette is within normal limits in size. Lungs are hyperinflated. There is continued blunting of the left CP angle, found on recent CT scan to represent small volume of pleural effusion and associated volume loss and consolidation in the left lower lobe. The lungs are otherwise clear. The small calcified granuloma seen on CT scan in the right upper lobe peripherally adjacent to the major fissure is not appreciated on this exam. There is a prominent dorsal kyphosis with mild degenerative spurring throughout the thoracic spine. There is a chronic moderate wedge compression deformity of the T12 vertebral body, unchanged. IMPRESSION: 1. Persistent small left-sided pleural effusion with associated volume loss and consolidation in the left lung base. Findings are similar to the prior exam. 2. Hyperinflation of lungs, consistent with obstructive lung disease. 3. No new superimposed focal process seen.
[2017-02-22 22:45] VITALS: BP 132/60
[2017-02-23 07:26] VITALS: BP 110/56
[2017-02-23 07:56] LABS: ABSOLUTE BASOPHIL COUNT 0 /CUMM (0.0-0.2); ABSOLUTE EOSINOPHIL COUNT 0.3 /CUMM (0.0-0.7); ABSOLUTE GRANULOCYTE CT 4.8 /CUMM (1.4-6.5); ABSOLUTE LYMPH COUNT 1.4 /CUMM (1.2-3.4); ABSOLUTE MONOCYTE COUNT 0.4 /CUMM (0.10-0.60); BASOPHIL % 0.5 % (0.0-2.0); EOSINOPHIL % 4.5 % (0-5); GRANULOCYTE % 69.7 % (42.2-75.2); HEMATOCRIT 28.1 % (37-47); MEAN CORPUSCULAR HGB 26.5 PG (27.0-31.0); MEAN CORPUSCULAR HGB CONC 32.6 G/DL (33.0-37.0); MEAN CORPUSCULAR VOLUME 81.3 FL (81.0-99.0); MEAN PLATELET VOLUME 6.9 FL (7.4-10.4); PLATELET COUNT 530 /CUMM (130-400); RBC DISTRIBUTION WIDTH 15.8 % (11.5-14.5); RED BLOOD CELL CT 3.46 /CUMM (4.20-5.40); WHITE BLOOD CELL COUNT 6.9 /CUMM (4.8-10.8)
--- NOTE | 2017-02-23 08:13 | PN- General Surgery ---
See Addendum Subjective Subjective: The patient was seen this morning. She had no complaints and denies any abdominal pain at the current time. She is tolerating a diet without nausea. She continues to reports passing watery drainage from her vagina. Objective Vital Signs and I&Os Vital Signs Date Time Temp Pulse Resp B/P B/P Pulse O2 O2 Flow FiO2 Mean Ox Delivery Rate 02/23 0726 97.5 70 18 110/56 93 Room Air 02/22 2245 98.0 69 18 132/60 94 Room Air 02/22 1452 98.8 77 20 140/60 94 Room Air 02/22 1028 70 148/62 Intake & Output 02/23 1600 02/23 0800 02/23 0000 02/22 1600 02/22 0800 02/22 0000 Intake Total 600 710 680 680 Output Total 6170 590 8386 1000 Balance - -320 Intake, IV 110 200 200 Intake, Oral 600 600 480 480 Number 1 1 2 Bowel Movements Output, Stool 1 Output, Urine 8677 357 8677 1000 Physical Exam: Gen.: Alert and in no obvious distress Skin: Warm and dry Abdomen: Soft, nondistended, nontender, bowel sounds positive. Extremities: Bilateral lower extremities are warm without calf tenderness. Assessment/Plan Assessment/Plan Assessment: 86-year-old female admitted to the hospital with a colovesicular fistula. The patient is currently being cooled off with IV antibiotics in anticipation for surgery this coming Wednesday. Plan: Continue regular diet The patient will require a bowel prep starting for surgery on Wednesday GI and DVT prophylaxis Follow-up morning laboratory studies Keep Montemayor catheter due to fistula Out of bed and ambulate Continue IV antibiotics Core Measures/Miscellaneous Venous Thromboembolism VTE Risk Factors: Age > 40, Surgery VTE Contraindications: No Contraindications VTE Diagnosis: No VTE Type: NONE VTE Confirmed by (Test): NONE Beta Derrick Is Beta Derrick a Home Med? No Antibiotics Is Patient on Antibiotics? Yes If Yes: infection
--- NOTE | 2017-02-23 10:35 | PN- Cardiology ---
Subjective Subjective: Patient feels well. She denies chest pain or shortness of breath. She still has watery vaginal drainage Review of Systems: Eyes no blurred or double vision Ears no deafness or ringing Nose and throat no recurrent sinusitis Lungs per history of present illness Heart per history of present illness Abdomen no nausea vomiting Genitourinary as above Musculoskeletal occasional muscle and joint pains Psych no anxiety or depression Neuro without recurrent headache or seizures Endocrine no heat or cold intolerance Objective Vital Signs and I&Os Vital Signs Date Time Temp Pulse Resp B/P B/P Pulse O2 O2 Flow FiO2 Mean Ox Delivery Rate 02/23 0923 74 114/58 02/23 0726 97.5 70 18 110/56 93 Room Air 02/22 2245 98.0 69 18 132/60 94 Room Air 02/22 1452 98.8 77 20 140/60 94 Room Air 02/22 1028 70 148/62 Intake & Output 02/23 1600 02/23 0800 02/23 0000 02/22 1600 02/22 0800 02/22 0000 Intake Total 260 600 710 680 680 Output Total 1300 7310 216 9170 1000 Balance -1300 260 - -320 Intake, IV 260 110 200 200 Intake, Oral 600 600 480 480 Number 1 1 2 Bowel Movements Output, Stool 1 Output, Urine 1300 4673 068 5831 1000 Physical Exam: Patient is a well-developed well-nourished female appearing in no acute distress HEENT is unremarkable Neck is supple there is no JVD Lungs decreased breath sounds at the left base Heart regular rhythm S1 and S2 are normal no murmurs gallops or rubs Abdomen bowel sounds positive Extremities without edema Current Medications: Current Medications Sig/Miguel Start time Last Medication Dose Route Stop Time Status Admin Acetaminophen 650 MG Q6PRN PRN 02/17 2230 AC PO Ceftriaxone Sodium 1,000 MG 2100 02/18 2100 AC 02/22 IV 2143 Diphenhydramine HCl 25 MG Q4 HRS NEEDED PRN 02/20 223 AC 02/21 IV 2113 Heparin Sodium 5,000 UNIT Q8 02/18 06 AC 02/23 (Porcine) SC 0529 Levothyroxine Sodium 0.1 MG DAILY AC 02/18 0700 AC 02/23 PO 0706 Losartan Potassium 50 MG DAILY 02/20 1000 AC 02/23 PO 0923 Metronidazole 500 MG Q8H 02/18 0500 AC 02/23 N/A 1 UNIT IV 0528 Ondansetron HCl 4 MG Q6-PRN PRN 02/17 2245 IV Patient Medication 1 ED .STK-MED ONE 02/22 1356 MI Teaching ED 02/22 1357 Triamterene/HCTZ 1 CAP DAILY 02/19 1000 AC 02/23 PO 0923 Results Last 48 Hrs of Labs/Mics: Laboratory Tests 02/23/17 0904: Anion Gap 11, Estimated GFR 60, BUN/Creatinine Ratio 14.4, Magnesium 2.1 02/23/17 0610: CBC w Diff NO MAN DIFF REQ, RBC 3.46 L, MCV 81.3, MCH 26.5 L, RDW 15.8 H, MPV 6.9 L, Gran % 69.7, Lymphocytes % 19.8 L, Monocytes % 5.5, Eosinophils % 4.5, Basophils % 0.5, Absolute Granulocytes 4.8, Absolute Lymphocytes 1.4, Absolute Monocytes 0.4, Absolute Eosinophils 0.3, Absolute Basophils 0, PUBS MCHC 32.6 L Recent Imaging Studies: Chest x-ray IMPRESSION: 1. Persistent small left-sided pleural effusion with associated volume loss and consolidation in the left lung base. Findings are similar to the prior exam. 2. Hyperinflation of lungs, consistent with obstructive lung disease. 3. No new superimposed focal process seen. DICTATED BY: JONATHAN SZYMANSKI,GILBERTO Chin Assessment/Plan Assessment/Plan 1. Symptomatic colonic vesicular fistula 2. History of hypertension stable 3. History of mild to moderate pulmonary hypertension by echocardiogram 4. History of prior hernia repair, complicated by postoperative exudative pleural effusion 5. History of arthritis 6. Anemia 7. Recurrent left pleural effusion history of thoracentesis in the past Recommendations 1. Continue losartan for hypertension 2. Given pleural effusion noted on chest x-ray would consider discussing with Dr. Isabel prior to surgery. Continue telemetry? No
[2017-02-23 14:51] VITALS: BP 110/60
[2017-02-23 22:24] VITALS: BP 130/64
[2017-02-24 06:00] VITALS: BP 140/84
--- NOTE | 2017-02-24 07:46 | PN- General Surgery ---
Surgical Brief Attending Note Brief Attending Note: Patient without complaints Exam stable Plan is as follows Consult pulmonology today Bowel prep tomorrow: Clear liquid diet starting tomorrow morning, continue IV antibiotics, add Flagyl 500 mg for 3 doses by mouth, 1/2 gallon lately starting at 4 PM Surgery on Wednesday
--- NOTE | 2017-02-24 11:41 | PN- Cardiology ---
Subjective Subjective: Doing well. Still with no dyspnea, chest pain, or palpitations. Objective Vital Signs and I&Os Vital Signs Date Time Temp Pulse Resp B/P B/P Pulse O2 O2 Flow FiO2 Mean Ox Delivery Rate 02/24 0852 72 138/74 02/24 0600 98.3 73 20 140/84 94 Room Air 02/23 2224 98.3 89 20 130/64 92 Room Air 02/23 1451 98.2 84 18 110/60 94 Room Air Intake & Output 02/24 1600 02/24 0800 02/24 0000 02/23 1600 02/23 0800 02/23 0000 Intake Total 130 800 260 600 Output Total 350 1750 1400 Balance -350 130 -950 260 -800 Intake, IV 130 260 Intake, Oral 800 600 Number 2 1 Bowel Movements Output, Urine 350 1750 1400 Physical Exam: General: no apparent distress. Alert. Eyes: No obvious scleral icterus. HEENT: No jugular venous distention or abnormal jugular venous pulsations. Cardiovascular: Normal intensity S1/S2. PMI not grossly displaced. Respiratory: Clear to auscultation bilaterally Abdomen: no guarding Musculoskeletal: No clubbing or cyanosis noted, no edema Skin: Warm Neurologic: No gross focal deficits noted. Current Medications: Current Medications Sig/Miguel Start time Last Medication Dose Route Stop Time Status Admin Acetaminophen 650 MG Q6PRN PRN 02/17 2230 AC PO Ceftriaxone Sodium 1,000 MG 2100 02/18 2100 AC 02/23 IV 2101 Diphenhydramine HCl 25 MG Q4 HRS NEEDED PRN 02/20 2230 AC 02/24 IV 0354 Heparin Sodium 5,000 UNIT Q8 02/18 06 AC 02/24 (Porcine) SC 0607 Levothyroxine Sodium 0.1 MG DAILY AC 02/18 0700 AC 02/24 PO 0607 Losartan Potassium 50 MG DAILY 02/20 1000 AC 02/24 PO 0852 Metronidazole 500 MG Q8H 02/18 0500 AC 02/24 N/A 1 UNIT IV 0606 Ondansetron HCl 4 MG Q6-PRN PRN 02/17 2245 AC IV Triamterene/HCTZ 1 CAP DAILY 02/19 1000 AC 02/24 PO 0853 Results Last 48 Hrs of Labs/Mics: Laboratory Tests 02/23/17 0904: Anion Gap 11, Estimated GFR 60, BUN/Creatinine Ratio 14.4, Magnesium 2.1 02/23/17 0610: CBC w Diff NO MAN DIFF REQ, RBC 3.46 L, MCV 81.3, MCH 26.5 L, RDW 15.8 H, MPV 6.9 L, Gran % 69.7, Lymphocytes % 19.8 L, Monocytes % 5.5, Eosinophils % 4.5, Basophils % 0.5, Absolute Granulocytes 4.8, Absolute Lymphocytes 1.4, Absolute Monocytes 0.4, Absolute Eosinophils 0.3, Absolute Basophils 0, PUBS MCHC 32.6 L Recent Imaging Studies: IMPRESSION: 1. Persistent small left-sided pleural effusion with associated volume loss and consolidation in the left lung base. Findings are similar to the prior exam. 2. Hyperinflation of lungs, consistent with obstructive lung disease. 3. No new superimposed focal process seen. Assessment/Plan Assessment/Plan 1. Symptomatic colonic vesicular fistula 2. History of hypertension 3. History of mild to moderate pulmonary hypertension by echocardiogram 4. History of prior hernia repair, complicated by postoperative exudative pleural effusion 5. History of arthritis 6. Anemia Remains hemodynamically stable with no evidence of acute coronary syndrome or decompensated congestive heart failure. Small left-sided pleural effusion noted on baseline chest x-ray which does not require thoracocentesis. She will need a follow-up chest x-ray after surgery to ensure no recurrence of previous postoperative pleural effusion. Babak Grier MD [facility] Continue telemetry? Not applicable
[2017-02-24 15:02] VITALS: BP 130/62
[2017-02-24 22:40] VITALS: BP 128/78
[2017-02-25 07:00] VITALS: BP 124/62
--- NOTE | 2017-02-25 07:17 | PN- General Surgery ---
See Addendum Subjective Subjective: The patient was seen this morning. She had no complaints the current time and is tolerating a clear liquid diet without nausea. She continues to pass urine from her vagina and is aware and agreeable with regards to surgery tomorrow. Objective Vital Signs and I&Os Vital Signs Date Time Temp Pulse Resp B/P B/P Pulse O2 O2 Flow FiO2 Mean Ox Delivery Rate 02/24 2240 97.8 80 20 128/78 95 Room Air 02/24 1502 98.6 83 20 130/62 95 Room Air 02/24 0852 72 138/74 Intake & Output 02/25 0800 02/25 0000 02/24 1600 02/24 0800 02/24 0000 02/23 1600 Intake Total 820 910 130 800 Output Total 700 069 438 7970 Balance -700 120 910 -350 130 -950 Intake, IV 100 110 130 Intake, Oral 720 800 800 Number 1 2 2 Bowel Movements Output, Urine 700 946 561 7906 Physical Exam: Gen.: Alert and in no obvious distress Skin: Warm and dry Abdomen: Soft, nontender, nondistended, bowel sounds positive. Extremities: Bilateral lower extremities are warm without calf tenderness. Assessment/Plan Assessment/Plan Assessment: 86-year-old female with a colovesicular fistula currently being worked up and prepped for surgery tomorrow. The patient remains comfortable and understands that she'll be brought to the operating theater tomorrow for correction of her fistula. Plan: Begin bowel prep today please refer to Dr. veliz prior note for details Clear liquids until midnight then nothing by mouth IV hydration GI and DVT prophylaxis Follow-up morning laboratory studies and will also obtain a type and screen in anticipation for surgery. Core Measures/Miscellaneous Venous Thromboembolism VTE Risk Factors: Age > 40, Surgery VTE Contraindications: No Contraindications VTE Diagnosis: No VTE Type: NONE VTE Confirmed by (Test): NONE Beta Derrick Is Beta Derrick a Home Med? No Antibiotics Is Patient on Antibiotics? Yes If Yes: infection
--- NOTE | 2017-02-25 10:29 | PN- Cardiology ---
Subjective Subjective: According to nursing staff cardiac problems overnight. Patient sitting out of bed to chair admits to no problems and is awaiting for surgery tomorrow Objective Vital Signs and I&Os Vital Signs Date Time Temp Pulse Resp B/P B/P Pulse O2 O2 Flow FiO2 Mean Ox Delivery Rate 02/25 0957 66 126/60 02/25 0700 97.8 64 18 124/62 96 Room Air 02/24 2240 97.8 80 20 128/78 95 Room Air 02/24 1502 98.6 83 20 130/62 95 Room Air Intake & Output 02/25 1600 02/25 0800 02/25 0000 02/24 1600 02/24 0800 02/24 0000 Intake Total 220 820 910 130 Output Total 850 700 350 Balance -630 120 910 -350 130 Intake, IV 100 100 110 130 Intake, Oral 120 720 800 Number 2 2 Bowel Movements Output, Urine 850 700 350 Physical Exam: Gen. exam patient comfortable vitals stable Head normocephalic atraumatic Eyes sclera anicteric conjunctiva showed no pallor extraocular muscles were normal Neck no jugular venous distention no thyroid masses no palpable nodes Chest lungs were clear bilaterally Heart regular rhythm /6 systolic murmur Abdomen soft no organomegaly Extremities no clubbing cyanosis or pedal edema neurological no gross motor or sensory deficits Current Medications: Current Medications Sig/Miguel Start time Last Medication Dose Route Stop Time Status Admin Acetaminophen 650 MG Q6PRN PRN 02/17 2230 AC PO Ceftriaxone Sodium 1,000 MG 2100 02/18 2100 AC 02/24 IV 2155 Diphenhydramine HCl 25 MG Q4 HRS NEEDED PRN 02/20 2230 AC 02/24 IV 0354 Heparin Sodium 5,000 UNIT Q8 02/18 06 AC 02/25 (Porcine) SC 0627 Levothyroxine Sodium 0.1 MG DAILY AC 02/18 0700 AC 02/25 PO 0627 Losartan Potassium 50 MG DAILY 02/20 1000 AC 02/25 PO 0957 Metronidazole 500 MG TID 02/25 1000 AC 02/25 PO 02/25 2201 0957 Metronidazole 500 MG Q8H 02/18 0500 AC 02/25 N/A 1 UNIT IV 0431 Ondansetron HCl 4 MG Q6-PRN PRN 02/17 2245 AC IV Patient Medication 1 ED .STK-MED ONE 02/24 1409 MT Teaching ED 02/24 1410 Polyethylene Glycol 0.5 GAL ONCE ONE 02/25 1600 AC PO 02/25 1601 Potassium Chloride 20 MEQ Q10H 02/25 2300 AC Sodium Chloride 1,000 ML IV Triamterene/HCTZ 1 CAP DAILY 02/19 1000 AC 02/25 PO 0957 Assessment/Plan Assessment/Plan In summary this 86-year-old female of the following problems Symptomatic colonic vesicular fistula 2. History of hypertension 3. History of mild to moderate pulmonary hypertension by echocardiogram 4. History of prior hernia repair, complicated by postoperative exudative pleural effusion 5. History of arthritis 6. Anemia She carries borderline electrocardiogram without acute changes or arrhythmias. She is cleared for upcoming surgery tomorrow. Postoperative chest x-ray has been suggested Continue telemetry? Not applicable
--- NOTE | 2017-02-25 13:05 | RADIOLOGY REPORT ---
EXAMINATION: XR PORTABLE CHEST CLINICAL INFORMATION: Preoperative. History of pleural effusion. COMPARISON: 02/22/2017 TECHNIQUE: Portable frontal view of the chest was obtained. FINDINGS: The lungs are well expanded. There is a persistent small left pleural effusion, similar to previous. Associated left basilar opacity. No pneumothorax. No edema. The cardiomediastinal silhouette is grossly unchanged on this rotated study. IMPRESSION: Rotated study which somewhat limits evaluation. No significant change in small left pleural effusion with associated airspace opacity.
[2017-02-25 14:28] VITALS: BP 140/80
[2017-02-25 23:39] VITALS: BP 133/64
[2017-02-26 06:24] VITALS: BP 128/72
--- NOTE | 2017-02-26 07:43 | PN- General Surgery ---
See Addendum Subjective Subjective: No acute overnight events reported. Patient underwent bowel prep, last administration of go litely was at 230 am, she states that her bowel movements have slowed but have not stopped yet. She denies chest pain, shortness of breath and difficulty breathing. She denies nausea and vomitting. She is anticipating surgery later this am. Objective Vital Signs and I&Os Vital Signs Date Time Temp Pulse Resp B/P B/P Pulse O2 O2 Flow FiO2 Mean Ox Delivery Rate 02/26 0624 97.4 70 20 128/72 95 Room Air 02/25 2339 98.1 74 20 133/64 90 Room Air 02/25 1428 98.4 77 20 140/80 96 Room Air 02/25 0957 66 126/60 Intake & Output 02/26 0800 02/26 0000 02/25 1600 02/25 0800 02/25 0000 02/24 1600 Intake Total 453 510 0487 220 820 910 Output Total 1000 1450 800 850 700 Balance -300 -730 200 -630 120 910 Intake, IV 700 100 100 110 Intake, Oral 0 720 1000 120 720 800 Number 3 2 1 2 2 Bowel Movements Output, Urine 1000 1450 800 850 700 Physical Exam: General: AAO x3, no acute distress Cardiolgy: RRR, s1s2 Pulm: CTA bilaterally Abdomen: Soft, non-tender Extremite: Moves all extremities, distal sensation intact. Skin warm and well perfused. Bilateral calves soft and non-tender. Assessment/Plan Assessment/Plan Assessment: 86-year-old female with a colovesicular fistula who has been cleared by cardiology for surgical intervention today. Underwent overnight bowel prep and is presently without complaints. The patient remains comfortable and understands that she'll be brought to the operating theater later this am for correction of her fistula. Plan: IV hydration Type and screen this am NPO OR today Will discuss with Dr. Hermosillo Core Measures/Miscellaneous Venous Thromboembolism VTE Risk Factors: Age > 40, Surgery VTE Contraindications: No Contraindications VTE Diagnosis: No VTE Type: NONE VTE Confirmed by (Test): NONE Beta Derrick Is Beta Derrick a Home Med? No Antibiotics Is Patient on Antibiotics? Yes If Yes: infection
[2017-02-26 07:53] LABS: ABSOLUTE BASOPHIL COUNT 0 /CUMM (0.0-0.2); ABSOLUTE EOSINOPHIL COUNT 0.2 /CUMM (0.0-0.7); ABSOLUTE GRANULOCYTE CT 4.3 /CUMM (1.4-6.5); ABSOLUTE LYMPH COUNT 1.2 /CUMM (1.2-3.4); ABSOLUTE MONOCYTE COUNT 0.6 /CUMM (0.10-0.60); BASOPHIL % 0.7 % (0.0-2.0); EOSINOPHIL % 3.4 % (0-5); GRANULOCYTE % 66.9 % (42.2-75.2); HEMATOCRIT 28.7 % (37-47); MEAN CORPUSCULAR HGB 26.8 PG (27.0-31.0); MEAN CORPUSCULAR HGB CONC 32.3 G/DL (33.0-37.0); MEAN CORPUSCULAR VOLUME 83.2 FL (81.0-99.0); PLATELET COUNT 531 /CUMM (130-400); RBC DISTRIBUTION WIDTH 16.8 % (11.5-14.5); RED BLOOD CELL CT 3.45 /CUMM (4.20-5.40); WHITE BLOOD CELL COUNT 6.5 /CUMM (4.8-10.8)
[2017-02-26 10:53] VITALS: BP 142/70
--- NOTE | 2017-02-26 15:51 | Operative Report ---
Operative/Inv Procedure Report Surgery Date: 02/26/17 Name of Procedure: 1. Leigh's procedure (sigmoidectomy with end colostomy) 2. Left oophorectomy 3. Cystoscopy with placement of bilateral ureteral catheters 4. Ureteroscopy 5. Repair of left ureter Pre-Operative Diagnosis: 1. Complicated diverticulitis 2. Colovesical fistula Post-Operative Diagnosis: Same Estimated Blood Loss: less than 50ml Surgeon/Recreation Facility Attendant: JT DAMON JR, DO Please note: Dr. Florencia Tran performed: Cystoscopy, ureteroscopy, and the repair of the left ureter, she will dictate that portion of the operation Anesthesia: general endotracheal tube Monitors: Per routine Implants: None Drains: 10 ROMANA and pelvis Left-sided ureteral pigtail stent Specimens: Rectosigmoid en bloc with left ovary Microbiology: Cultures from abscess cavity Complications: Laceration of left ureter Condition: Good Operative Indication: This is an 86-year-old female said several months of abdominal pain. She presented to [facility] about one week ago. At the time of her admission she had a leukocytosis and a CT scan was performed. CT scan was consistent with a acute on chronic diverticulitis with colovesical fistula. She was admitted resuscitated and placed on IV antibiotics. She had a preoperative risk assessment by internal medicine cardiology was cleared for surgery. On the day before operation she did bowel prep including laxatives and oral antibiotics Operative/Procedure Note Note: The patient was taken into the operating room placed in supine position on the operating room table she underwent induction of general anesthesia placement of endotracheal tube. The patient was converted to lithotomy in [facility]. At this point Dr. Florencia Tran did a cystoscopy and placement of bilateral ureteral stents (she will dictate that portion of the operation) after this the patient was converted to supine position. A TAP Block was performed by the anesthesia team. We performed a middle lower midline incision and easily got into the abdominal cavity. It was a paucity of adhesions. We gained exposure by placing a Bookwalter retractor. SMALL bowel was swept into the right upper quadrant. At this point we had excellent exposure to the sigmoid colon. The sigmoid colon was a tumor-like firm and inflamed. The bowel was kinked and adherent to both the bladder and the left adnexa. I incised the peritoneum along the left edge of the colon and swept this away. The left ureteral stent was palpable but dove into the phlegmonous mass superior to the sigmoid. I was able to dissect the colon free from the bladder anteriorly and got into a fairly large abscess cavity. It was frankly purulent material here. This was cultured. There was also some fecaliths which were removed. The area was copiously irrigated. The inflammation was so dense was concern about injuring other tissues. So decided to do top down dissection. I chose a portion of the colon above the inflammation that was able for a colostomy. A mesenteric window was created here using electrocautery. The QUINCY stapler was used to divide the bowel. This was a blue loaded 81 m. I began to take the posterior mesentery working down to the sacral promontory. I was attempting to stay in the midline and avoid the ureter but the ureter had been pulled into this and this mass and as I was performing my dissection I medially recognized as I lacerated the left ureter. The distal part of the stent was sticking out and I carefully dissected this away from the phlegmon. We keep track of the proximal end which is visible and producing urine. This was protected until Dr. Florencia Tran could return to the operating room. While waiting for Dr. Tran anterior my dissection. The left adnexa was stuck in the phlegmonous mass so the fallopian tube and ovarian blood vessels were divided with LigaSure. I was able to get below the inflammation onto the rectosigmoid. The mesentery was cleared here with a combination of electrocautery and LigaSure. A TA 55 reticulating stapler was used to seal the bowel. The bowel was divided on the proximal side with a scalpel. The specimen was removed from the field. Marking sutures were placed on the corners of the staple line with 2-[address] Lalo Putnam to come to the specimen with me in the operating room. He was oriented the specimen and then took the specimen back to the lab for further evaluation. At this point Dr. Tran scrubbed back into the case. She performed a ureteroscopy with retrieval of the lacerated stent and repair of the ureter over a pigtail stent. She will dictate the specifics of this part of the operation. Once ureteral repair was complete the abdomen was copiously irrigated with warm sterile saline. A ROMANA drain was placed in the pelvis between the uterus and the bladder. ROMANA was brought out through a right lower quadrant stab incision and secured to the skin with a 2-0 nylon. I chose my site for her carpal colostomy. A circular plug of skin and subcutaneous tissue was excised. The rectus fascia was exposed underneath and divided in a cruciate fashion. The rectus muscle was exposed and bluntly split in direction of the fibers. The peritoneum was then divided in a cruciate fashion. The transected portion of the colon was pulled through this fascial defect. The midline incision was then closed with a running looped 0 PDS suture. The subcutaneous tissue was copiously pulse lavaged with 4 L of sterile saline mixed with bacitracin. The skin of the midline incision was closed with a combination of Prolene suture and skin garcia. The midline incision was then protected with a sterile towel. And I prepared to mature the stoma. The suture line was excised from the end of the colon. A Jovita colostomy was then created with interrupted 3-0 Vicryl sutures. Next the abdomen was cleansed and dried. Bacitracin ointment Xeroform gauze and sterile dressing were placed over the midline. A colostomy collection device was placed over the colostomy. Next the right ureteral catheter was removed The procedure was concluded The patient tolerated the procedure well taken the recovery area in good condition At the end this operational needle sponges and measurements were accounted for
[2017-02-26 17:20] VITALS: BP 158/70
--- NOTE | 2017-02-26 17:31 | Operative Report ---
Operative/Inv Procedure Report Surgery Date: 02/26/17 Name of Procedure: cytoscopy, placement of bilateral temporary ureteral stents. Followed later by ureteral transection repair with initial ureteroscopy with half stent removal folowed by stent placement and ureteral reanastomosis Pre-Operative Diagnosis: colovesical fistula Post-Operative Diagnosis: same Estimated Blood Loss: 50ml to 100ml Surgeon/Block Cableman: MARISOL CAREY DO,JT Neumann Anesthesia: general endotracheal tube Drains: 6x24cm stent pm the left side Specimens: removed left ureteral stent Complications: none Condition: stable Operative Indication: colovesical fistula; subsequently a ureteral injury (transection inadevertantly) Operative/Procedure Note Note: This is an operative dictation on patient Saige Savage. She was consented for bilateral temporary ureteral stents with cystoscopy. Earlier in the week it was explained that the surgery she was to have with Dr. augustin was difficult and fraught with the lots of inflammation making it possible to injure the ureters. Ureteral stents make it easier to identify the ureters and to prevent injury or to at the time of injury if it occurs. Risks benefits and alternatives were given to the patient and she wished to proceed. All questions were answered. Patient was taken to the operating room placed in the supine position.. Timeout was performed and general anesthesia was obtained. IV antibiotics were infused. Patient was placed in the dorsal lithotomy position. She was prepped and draped in the standard sterile fashion. Cystoscopy was performed the bladder was globally inspected. There was an area of inflammation at the posterior inferior wall above the trigone. There did appear to be a small possible fistula at this site with surrounding inflammation. The right ureteral orifice and left ureteral orifices were easily identified. These were cannulated individually sequentially with cone temporary ureteral stents without issue. There were placed without difficulty. They were then attached to the Montemayor catheter with 0 silk tie suture. The Montemayor was connected to Montemayor drainage bag and the catheters were connected to catheter bags. After Versed then started his portion of the case. Later during the case on forcefully Dr. augustin had transected the left ureter due to the severe amount of inflammation along the cystic multiple sigmoid in the area of the left ureter. It was a nice clean transection and the stent was used to identified in the lower portion of the ureter. However the upper portion of the ureter was not able to be identified easily but once it was identified with clear urine output proximal ureteral stent was not able to be palpated. As a result a flexible ureteroscope was then used to traverse the ureter up into the renal pelvis. The ureteral stent was identified and was attempted to be grasped by was not successful and this was changed out for a 0 nitinol basket. This was successful and grab and the stent and removing it with the flexible ureteroscope. The sensor guidewire was then used to place a double-pigtail stent into the upper ureter as well as the lower ureter without difficulty. The ureteral anastomosis was performed over the ureteral stent using 5-0 Vicryl interrupted sutures. Seen appeared to be a watertight closure. Interrupted sutures were placed also in the ureteral fat surrounding the renal anastomosis site. This was done for extra measure for better healing of the anastomosis site. The bladder was also irrigated and filled to identify the bladder as with the inflammation and the inferior portion of the pelvis was difficult to palpate the Montemayor catheter balloon. There was no the spillage of the irrigated into the pelvis with this irrigation. The bladder appeared to be intact. This ended dictation of my portion of the surgery. Findings: normal bladder anatomy, easy placement of stents. However with inflammation along the posterior inferior wall of the bladder with a possible fistula tract within the inflammation. Subsequent reanastamosis of ureteral transection on the left side. Evenly transected left uereter with no need to resect tissue as no compromised tissue was appreciated. Water tight reanastomosis with stent in place. Discharge Disposition: PACU
[2017-02-26 21:26] VITALS: BP 136/72
[2017-02-27 01:36] VITALS: BP 160/74
[2017-02-27 06:07] VITALS: BP 156/72
[2017-02-27 08:02] LABS: ABSOLUTE BASOPHIL COUNT 0 /CUMM (0.0-0.2); ABSOLUTE EOSINOPHIL COUNT 0 /CUMM (0.0-0.7); ABSOLUTE GRANULOCYTE CT 22.7 /CUMM (1.4-6.5); ABSOLUTE MONOCYTE COUNT 0.8 /CUMM (0.10-0.60); BASOPHIL % 0 % (0.0-2.0); EOSINOPHIL % 0 % (0-5); GRANULOCYTE % 92.6 % (42.2-75.2); HEMATOCRIT 28.7 % (37-47); MEAN CORPUSCULAR HGB 27.6 PG (27.0-31.0); MEAN CORPUSCULAR HGB CONC 32.7 G/DL (33.0-37.0); MEAN CORPUSCULAR VOLUME 84.4 FL (81.0-99.0); MEAN PLATELET VOLUME 7.2 FL (7.4-10.4); PLATELET COUNT 526 /CUMM (130-400); RBC DISTRIBUTION WIDTH 16.8 % (11.5-14.5)
--- NOTE | 2017-02-27 09:38 | PN- General Surgery ---
See Addendum Subjective Subjective: No acute overnight events reported. Presently patient notes pain in lower portion of abdomen, no nausea or vomitting. Denies chest pain, shortness of breath and difficulty breathing. Has yet to ambulate. Is feeling fatigued. Objective Vital Signs and I&Os Vital Signs Date Time Temp Pulse Resp B/P B/P Pulse O2 O2 Flow FiO2 Mean Ox Delivery Rate 02/27 0607 97.7 81 20 156/72 97 02/27 0136 97.8 81 24 160/74 98 02/27 0000 Nasal 3.0L Cannula 02/26 2126 98.2 74 20 136/72 94 Nasal Cannula 02/26 1720 98.1 92 18 158/70 94 Nasal 3.0L Cannula 02/26 1720 96 Nasal 3.0L Cannula 02/26 1053 97.5 70 20 142/70 94 Room Air Intake & Output 02/27 1600 02/27 0800 02/27 0000 02/26 1600 02/26 0800 02/26 0000 Intake Total 860 225 500 700 720 Output Total 495 003 301 8175 1450 Balance 365 -65 -50 -300 -730 Intake, IV 800 225 500 700 Intake, Oral 60 0 0 0 720 Number 1 3 2 Bowel Movements Output, 45 40 Drainage Output, Urine 450 342 606 5070 1450 Physical Exam: General: Drowsy but oriented x3, responding appropriately to commands and questions Cardiac: Low grade murmur auscutated, regular rhythm and rate Pulmonary: CTA bilaterally, on nasal cannula, non-labored respiratory effort Abdomen: Non-distended, ROMANA in place with serosanguinous drainage. Midline dressing intact. Ostomy pink and appearing viable, no gas or stool in bag at this point. : Starr catheter in place, no evidence of gross hematuria present, urine output adequate and character of urine is clear yellow Extremities: Moves all extremities, distal sensation intact. SKin warm and well pefused. No peripheral edema. Bilateral calves soft and non-tender Assessment/Plan Assessment/Plan This is an 86 year old female. POD 1, s/p correction of colovesicular fistula with hartmanns. Has starr catheter in place. Presently npo, requires iv pain med administration as well as iv antibiotic. -Follow up sensitivities on OR cx obtained one day ago -Await bowel function in ostomy bag, npo for now -Continue IV rocephin/flagyl -Continue sub q heparin for dvt ppx -OOB -Incentive spirometry encouraged -Follow up am labs -Will d/w Dr. Hermosillo Core Measures/Miscellaneous Venous Thromboembolism VTE Risk Factors: Age > 40, Surgery VTE Contraindications: No Contraindications VTE Diagnosis: No VTE Type: NONE VTE Confirmed by (Test): NONE Beta Derrick Is Beta Derrick a Home Med? No Antibiotics Is Patient on Antibiotics? Yes If Yes: infection
[2017-02-27 09:43] LABS: WHITE BLOOD CELL COUNT 24.5 /CUMM (4.8-10.8)
[2017-02-27 14:03] VITALS: BP 128/60
[2017-02-27 22:32] VITALS: BP 128/66
[2017-02-28 06:44] VITALS: BP 121/57
[2017-02-28 08:23] LABS: ABSOLUTE BASOPHIL COUNT 0 /CUMM (0.0-0.2); ABSOLUTE EOSINOPHIL COUNT 0.1 /CUMM (0.0-0.7); ABSOLUTE GRANULOCYTE CT 16.5 /CUMM (1.4-6.5); ABSOLUTE LYMPH COUNT 0.8 /CUMM (1.2-3.4); ABSOLUTE MONOCYTE COUNT 0.7 /CUMM (0.10-0.60); BASOPHIL % 0.1 % (0.0-2.0); EOSINOPHIL % 0.7 % (0-5); HEMATOCRIT 24.9 % (37-47); MEAN CORPUSCULAR HGB 27.5 PG (27.0-31.0); MEAN CORPUSCULAR HGB CONC 32.3 G/DL (33.0-37.0); MEAN PLATELET VOLUME 7.4 FL (7.4-10.4); PLATELET COUNT 416 /CUMM (130-400); RBC DISTRIBUTION WIDTH 17.8 % (11.5-14.5); RED BLOOD CELL CT 2.93 /CUMM (4.20-5.40)
[2017-02-28 09:42] LABS: WHITE BLOOD CELL COUNT 18.1 /CUMM (4.8-10.8)
--- NOTE | 2017-02-28 09:58 | PN- General Surgery ---
See Addendum Subjective Subjective: Pt reports no major complaints at this time. Pain is reasonably controlled with Tylenol. She was mobilized OOB to the chair today. She admits to some nausea last night, but resolved after zofran. She does have some hiccups this morning. No ambulation as of yet. Otherwise denies PEREZ, dizziness, CP, shortness of breath. Objective Vital Signs and I&Os Vital Signs Date Time Temp Pulse Resp B/P B/P Pulse O2 O2 Flow FiO2 Mean Ox Delivery Rate 02/28 0900 86 118/58 02/28 0644 98.2 88 20 121/57 94 Room Air 02/27 2232 98.3 95 19 128/66 90 Room Air 02/27 1600 94 Room Air Room Air 02/27 1403 98.8 89 18 128/60 94 Room Air Room Air 02/27 1021 85 126/62 Intake & Output 02/28 1600 02/28 0800 02/28 0000 02/27 1600 02/27 0800 02/27 0000 Intake Total 800 225 860 860 225 Output Total 330 255 420 495 290 Balance 470 -30 440 365 -65 Intake, IV 800 225 800 800 225 Intake, Oral 0 60 60 0 Output, 5 5 20 45 40 Drainage Output, Urine 325 250 400 450 250 Physical Exam: Gen: Pt is awake and alert, sitting in the chair. NAD. Cardiac: regular Pulm: Shallow breathing seems to be limited by distention/abdominal discomfort. Abdomen: Moderately distended. Midline dressing is c/d/i. Stoma is pink and viable. Bag without air. It only contains a small amount of serous fluid. No stool. No BS were apprecated on exam today. Urine in starr is clear yellow. Assessment/Plan Assessment/Plan Pt is an 86 yo F who is now POD #2 s/p laura's procedure for colovescicular fistula. We are still awaiting return of bowel function, but she is otherwise relatively stable. Postop leukocytosis is improving, but creatinine is slightly elevated today. Plan: -Continue npo with ice chips only for now. Will advance diet when hiccups stop and bowel function returns. -Pain control with Tylenol. -PT consult for mobilization, which should help bowel function. -SC heparin and alps for dvt ppx. -Add pepcid for GI ppx. Pt has an allergy to PPI (omeprozole) -Continue rocephin and flagyl for peritonitis. -Monitor renal function. ?increased creatinine due to ureteral trauma. Will discuss with attending. Core Measures/Miscellaneous Venous Thromboembolism VTE Risk Factors: Age > 40, Surgery VTE Contraindications: No Contraindications VTE Diagnosis: No VTE Type: NONE VTE Confirmed by (Test): NONE Beta Derrick Is Beta Derrick a Home Med? No Antibiotics Is Patient on Antibiotics? Yes If Yes: infection
--- NOTE | 2017-02-28 11:20 | RADIOLOGY REPORT ---
EXAMINATION: XR PORTABLE CHEST CLINICAL INFORMATION: Pleural effusion. COMPARISON: Recent priors. CT scan of . TECHNIQUE: Portable AP erect view of the chest was obtained. FINDINGS: There is persistent small left pleural effusion unchanged from recent priors. The lungs are clear. The heart and mediastinal structures are normal. IMPRESSION: Stable small left pleural effusion.
[2017-02-28 14:41] VITALS: BP 126/60
[2017-02-28 22:47] VITALS: BP 130/70
[2017-03-01 06:21] VITALS: BP 146/64
--- NOTE | 2017-03-01 07:28 | PN- Student ---
Subjective Subjective: Patient is awake and semi-upright in bed. States she is "unable to get comfortable", denies chest/abdominal pain, SOB, n/v. OOB to chair twice yesterday but feels too weak to walk. Objective Objective: Vital Signs Result Date Time Pulse Ox 94 03/01 621 B/P 146/64 03/01 621 Temp 98.1 03/01 621 Pulse 78 03/01 621 Resp 20 03/01 621 O2 Delivery Room Air 02/28 2247 O2 Flow Rate Room Air 02/27 1600 Intake & Output 03/01 0000 02/28 1600 02/28 0800 Intake Total 800 800 800 Output Total 710 405 330 Balance 90 395 470 Intake, IV 800 800 800 Intake, Oral 0 Output, 10 5 5 Drainage Output, Stool 0 Output, Urine 700 400 325 General: awake, alert, oriented, NAD Lungs: CTAB, no wheeze/rhonchi/rales Heart: S1, S2 RRR Abdomen: Slightly firm, jeannette-incisional tenderness, no guarding, rigidity or rebound tenderness. Wound dressings clean, dry and intact, ROMANA drain in place with minimal amounts of serosanguanous fluid. Colostomy bag in place with small amount of sanguanous fluid but no air or formed stool. Montemayor catheter in place with clear yellow urine in bag. Extremities: warm, no erythema/edema, ALPS in place, no calf tenderness bilaterally Results Results: Laboratory Tests 02/28/17 0703: Anion Gap 5, Estimated GFR 33 L, BUN/Creatinine Ratio 12.7, CBC w Diff NO MAN DIFF REQ, RBC 2.93 L, MCV 85.0, MCH 27.5, RDW 17.8 H, MPV 7.4, Gran % 91.0 H, Lymphocytes % 4.6 L, Monocytes % 3.6, Eosinophils % 0.7, Basophils % 0.1, Absolute Granulocytes 16.5 H, Absolute Lymphocytes 0.8 L, Absolute Monocytes 0.7 H, Absolute Eosinophils 0.1, Absolute Basophils 0, PUBS MCHC 32.3 L 02/27/17 0655: Anion Gap 10, Estimated GFR 47 L, BUN/Creatinine Ratio 13.6, Magnesium 1.9, CBC w Diff MAN DIFF ORDERED, RBC 3.40 L, MCV 84.4, MCH 27.6, RDW 16.8 H, MPV 7.2 L, Gran % 92.6 H, Lymphocytes % 4.2 L, Monocytes % 3.2, Eosinophils % 0, Basophils % 0 L, Absolute Granulocytes 22.7 H, Segmented Neutrophils 89 H, Band Neutrophils 3, Absolute Lymphocytes 1.0 L, Lymphocytes 4 L, Monocytes 4, Absolute Monocytes 0.8 H, Absolute Eosinophils 0, Absolute Basophils 0, Hypochromic-Microcytic 1+, Anisocytosis 2+, PUBS MCHC 32.7 L Microbiology 02/26 1520 URINE OR: Urine Culture - COMP 02/26 1300 TRUNK/O.R.: Culture & Sensitivity - RES ENTEROBACTER CLOACAE GRAM NEGATIVE RODS GRAM POSITIVE COCCI 02/26 1300 TRUNK/O.R.: Gram Stain - RES
--- NOTE | 2017-03-01 07:44 | PN- General Surgery ---
See Addendum Subjective Subjective: The patient was seen this morning postoperatively day #3. She retired denies any pain at the current time. She has been tolerating a's chips without nausea. She has no other complaints at the current time and is worried about being able to walk and feeling weak in general. Objective Vital Signs and I&Os Vital Signs Date Time Temp Pulse Resp B/P B/P Pulse O2 O2 Flow FiO2 Mean Ox Delivery Rate 03/01 0621 98.1 78 20 146/64 94 02/28 2247 98.1 77 20 130/70 94 Room Air 02/28 1441 99.3 90 20 126/60 95 Room Air 02/28 0900 86 118/58 Intake & Output 03/01 0800 03/01 0000 02/28 1600 02/28 0800 02/28 0000 02/27 1600 Intake Total 800 800 800 800 225 860 Output Total 600 710 405 330 255 420 Balance 200 90 395 470 -30 440 Intake, IV 800 800 800 800 225 800 Intake, Oral 0 0 0 60 Output, 10 5 5 5 20 Drainage Output, Stool 0 Output, Urine 600 700 400 325 250 400 Physical Exam: Gen.: Alert and in no obvious distress Skin: Warm and dry Abdomen: Softly distended, appropriate incisional tenderness, bowel sounds sluggish. Surgical dressing is clean, dry, and intact. ROMANA 1 holding suction with serous drainage in bulb. Colostomy is pink and viable with no significant output or gas in the bag. Extremities: Bilateral lower extremities are warm without calf tenderness. Assessment/Plan Assessment/Plan Assessment: 86-year-old female status post Leigh's procedure for colovesicular fistula postoperative day #3. The patient is making slow progress but her bowel function has yet to return. Plan: Clear liquid diet Out of bed Will order physical therapy Continue current pain regiment GI and DVT prophylaxis Decrease IV fluids Daily wound and colostomy care IV antibiotics Keep ROMANA to self suction Itzel Montemayor catheter Follow-up morning laboratory studies Core Measures/Miscellaneous Venous Thromboembolism VTE Risk Factors: Age > 40, Surgery VTE Contraindications: No Contraindications VTE Diagnosis: No VTE Type: NONE VTE Confirmed by (Test): NONE Beta Derrick Is Beta Derrick a Home Med? No Antibiotics Is Patient on Antibiotics? Yes If Yes: infection
[2017-03-01 08:07] LABS: ABSOLUTE BASOPHIL COUNT 0 /CUMM (0.0-0.2); ABSOLUTE EOSINOPHIL COUNT 0.2 /CUMM (0.0-0.7); ABSOLUTE GRANULOCYTE CT 11.4 /CUMM (1.4-6.5); ABSOLUTE LYMPH COUNT 0.7 /CUMM (1.2-3.4); ABSOLUTE MONOCYTE COUNT 0.6 /CUMM (0.10-0.60); BASOPHIL % 0.1 % (0.0-2.0); EOSINOPHIL % 1.9 % (0-5); GRANULOCYTE % 88.4 % (42.2-75.2); HEMATOCRIT 22.3 % (37-47); MEAN CORPUSCULAR HGB 27.5 PG (27.0-31.0); MEAN CORPUSCULAR HGB CONC 32.6 G/DL (33.0-37.0); MEAN CORPUSCULAR VOLUME 84.5 FL (81.0-99.0); MEAN PLATELET VOLUME 7.4 FL (7.4-10.4); PLATELET COUNT 357 /CUMM (130-400); RBC DISTRIBUTION WIDTH 18.2 % (11.5-14.5); RED BLOOD CELL CT 2.63 /CUMM (4.20-5.40); WHITE BLOOD CELL COUNT 12.9 /CUMM (4.8-10.8)
--- NOTE | 2017-03-01 08:35 | PN- Cardiology ---
Subjective Subjective: The patient is awake, alert The events of the last 24 hours were reviewed. Review of Systems: The review of systems is negative for chest pains, palpitations nor lightheadedness. The remainder of the 14 point review of systems is noncontributory with the exception of above. Objective Vital Signs and I&Os Vital Signs Date Time Temp Pulse Resp B/P B/P Pulse O2 O2 Flow FiO2 Mean Ox Delivery Rate 03/01 0621 98.1 78 20 146/64 94 02/28 2247 98.1 77 20 130/70 94 Room Air 02/28 1441 99.3 90 20 126/60 95 Room Air 02/28 0900 86 118/58 Intake & Output 03/01 1600 03/01 0800 03/01 0000 02/28 1600 02/28 0800 02/28 0000 Intake Total 800 800 800 800 225 Output Total 600 710 405 330 255 Balance 200 90 395 470 -30 Intake, IV 800 800 800 800 225 Intake, Oral 0 0 0 Output, 10 5 5 5 Drainage Output, Stool 0 Output, Urine 600 700 400 325 250 Physical Exam: General: Nontoxic, no apparent distress. HEENT: Sclera and conjunctiva within normal limits, without xanthelasmas. Neck: Carotids 2+ without bruits. Respiratory: Clear to auscultation, air movement is good, without accessory respiratory muscle use. Heart: Regular rate and rhythm, without murmurs, without JVD. Abdomen: Soft, nontender, no masses, normoactive bowel sounds. Extremities: Without clubbing, cyanosis, without edema. Neuro: Nonfocal exam, strength, 5 out of 5 Skin: Within normal limits without lesions. Psych: Mood and affect: Normal Current Medications: Current Medications Sig/Miguel Start time Last Medication Dose Route Stop Time Status Admin Acetaminophen 1,000 MG Q8P PRN 02/26 1530 AC 03/01 IV 0103 Ceftriaxone Sodium 1,000 MG 2100 02/26 2100 AC 02/28 IV 2328 Dextrose/Sodium 1,000 ML Q10H 02/26 1530 AC 03/01 Chloride IV 0304 Diphenhydramine HCl 25 MG Q4 HRS NEEDED PRN 02/20 2230 AC 02/24 IV 0354 Famotidine 20 MG DAILY 02/28 1200 AC 02/28 IV 1227 Heparin Sodium 5,000 UNIT Q8 02/26 2200 AC 03/01 (Porcine) SC 0511 Levothyroxine Sodium 0.1 MG DAILY AC 02/18 0700 AC 03/01 PO 0511 Losartan Potassium 50 MG DAILY 02/20 1000 AC 02/28 PO 0900 Metronidazole 500 MG Q8H 02/18 0500 AC 03/01 N/A 1 UNIT IV 0509 Morphine Sulfate 2 MG Q3P PRN 02/26 1530 AC 02/28 IV 1550 Morphine Sulfate 1 MG Q3P PRN 02/26 1530 AC 02/28 IV 0600 Ondansetron HCl 4 MG Q6P PRN 02/26 1530 AC IV Ondansetron HCl 4 MG Q6-PRN PRN 02/17 2245 AC 02/27 IV 1851 Triamterene/HCTZ 1 CAP DAILY 02/19 1000 AC 02/28 PO 0901 Results Last 48 Hrs of Labs/Mics: Laboratory Tests 03/01/17 0634: Anion Gap 6, Estimated GFR 53 L, BUN/Creatinine Ratio 15.0, CBC w Diff Pending, WBC Pending, RBC Pending, Hgb Pending, Hct Pending, MCV Pending, MCH Pending, RDW Pending, Plt Count Pending, MPV Pending, PUBS MCHC Pending 02/28/17 0703: Anion Gap 5, Estimated GFR 33 L, BUN/Creatinine Ratio 12.7, CBC w Diff NO MAN DIFF REQ, RBC 2.93 L, MCV 85.0, MCH 27.5, RDW 17.8 H, MPV 7.4, Gran % 91.0 H, Lymphocytes % 4.6 L, Monocytes % 3.6, Eosinophils % 0.7, Basophils % 0.1, Absolute Granulocytes 16.5 H, Absolute Lymphocytes 0.8 L, Absolute Monocytes 0.7 H, Absolute Eosinophils 0.1, Absolute Basophils 0, PUBS MCHC 32.3 L Assessment/Plan Assessment/Plan 86-year-old woman who presented for a repair of a colonic vesicular fistula History of hypertension History of mild to moderate pulmonary hypertension by echocardiogram History of prior hernia repair, complicated by postoperative exudative pleural effusion History of arthritis Anemia The patient is postoperative day #3 status post repair of a colonic vesicular fistula and has had no significant perioperative cardiac events. Her outpatient cardiac regimen has been restarted on oral format. Further care will be as per the surgical team. She will follow-up in our office as an outpatient. Continue telemetry? No
[2017-03-01 09:47] VITALS: BP 146/72
[2017-03-01 10:11] VITALS: BP 142/68
[2017-03-01 13:00] VITALS: BP 136/62
--- NOTE | 2017-03-01 13:16 | PN- Urology ---
Subjective Subjective: pt without any complaints regarding her starr. Review of Systems Constitutional: Reports: no symptoms. EENTM: Reports: no symptoms. Cardiovascular: Reports: no symptoms. Respiratory: Reports: no symptoms. Gastrointestinal: Reports: abdominal pain. Genitourinary: Reports: no symptoms. Musculoskeletal: Reports: no symptoms. Skin: Reports: no symptoms. Neurological/Psychological: Reports: no symptoms. Hematologic/Endocrine: Reports: no symptoms. Immunologic/Allergic: Reports: no symptoms. Objective Vital Signs and I&Os Vital Signs Date Time Temp Pulse Resp B/P B/P Pulse O2 O2 Flow FiO2 Mean Ox Delivery Rate 03/01 1011 98.1 78 18 142/68 95 Room Air Room Air 03/01 0947 98.3 72 18 146/72 95 Room Air Room Air 03/01 0902 74 142/64 03/01 0621 98.1 78 20 146/64 94 02/28 2247 98.1 77 20 130/70 94 Room Air 02/28 1441 99.3 90 20 126/60 95 Room Air Intake & Output 03/01 1600 03/01 0800 03/01 0000 02/28 1600 02/28 0800 02/28 0000 Intake Total 800 800 800 800 225 Output Total 600 710 405 330 255 Balance 200 90 395 470 -30 Intake, IV 800 800 800 800 225 Intake, Oral 0 0 0 Output, 10 5 5 5 Drainage Output, Stool 0 Output, Urine 600 700 400 325 250 Physical Exam: awake and alert, NAD Abd soft, tender at incision site. No signs of infection. Starr in place with clear UOP. No calf tenderness Physical Exam General Appearance: well developed/nourished, no apparent distress, alert, awake , comfortable Head: atraumatic, normal appearance Ears, Nose, Throat: normal ENT inspection Respiratory: no respiratory distress Abdomen: soft Rectal: deferred Neurologic/Psychiatric: awake, alert, oriented x 3 Skin: intact, normal color, warm/dry Reproductive: Normal female genitalia Current Medications: Current Medications Sig/Miguel Start time Last Medication Dose Route Stop Time Status Admin Acetaminophen 1,000 MG .STK-MED ONE 03/01 0152 DC IV 03/01 0153 Acetaminophen 1,000 MG Q8P PRN 02/26 1530 AC 03/01 IV 0904 Ceftriaxone Sodium 1,000 MG 2100 02/26 2100 AC 02/28 IV 2328 Dextrose/Sodium 1,000 ML Q10H 02/26 1530 AC 03/01 Chloride IV 0304 Diphenhydramine HCl 25 MG Q4 HRS NEEDED PRN 02/20 2230 AC 02/24 IV 0354 Famotidine 20 MG DAILY 02/28 1200 AC 03/01 IV 0902 Furosemide 20 MG ONCE ONE 03/01 0900 DC 03/01 IV 03/01 0901 1244 Heparin Sodium 5,000 UNIT Q8 02/26 2200 AC 03/01 (Porcine) SC 1245 Levothyroxine Sodium 0.1 MG DAILY AC 02/18 0700 AC 03/01 PO 0511 Losartan Potassium 50 MG DAILY 02/20 1000 AC 03/01 PO 0902 Metronidazole 500 MG Q8H 02/18 0500 AC 03/01 N/A 1 UNIT IV 1245 Morphine Sulfate 2 MG Q3P PRN 02/26 1530 AC 02/28 IV 1550 Morphine Sulfate 1 MG Q3P PRN 02/26 1530 AC 02/28 IV 0600 Ondansetron HCl 4 MG Q6P PRN 02/26 1530 AC IV Ondansetron HCl 4 MG Q6-PRN PRN 02/17 2245 AC 02/27 IV 1851 Triamterene/HCTZ 1 CAP DAILY 02/19 1000 AC 03/01 PO 0901 Results Last 48 Hours of Labs: Laboratory Tests 03/01 02/28 0634 0703 Chemistry Sodium (137 - 145 mmol/L) 134 L 134 L Potassium (3.5 - 5.1 mmol/L) 4.0 4.3 Chloride (98 - 107 mmol/L) 107 106 Carbon Dioxide (22 - 30 mmol/L) 21 L 23 Anion Gap (5 - 16) 6 5 BUN (7 - 17 mg/dL) 15 19 H Creatinine (0.5 - 1.0 mg/dL) 1.0 1.5 H Estimated GFR (>60 ml/min) 53 L 33 L BUN/Creatinine Ratio (7 - 25 %) 15.0 12.7 Hematology CBC w Diff NO MAN DIFF REQ NO MAN DIFF REQ WBC (4.8 - 10.8 /CUMM) 12.9 H 18.1 H RBC (4.20 - 5.40 /CUMM) 2.63 L 2.93 L Hgb (12.0 - 16.0 G/DL) 7.3 *L 8.0 L Hct (37 - 47 %) 22.3 L 24.9 L MCV (81.0 - 99.0 FL) 84.5 85.0 MCH (27.0 - 31.0 PG) 27.5 27.5 RDW (11.5 - 14.5 %) 18.2 H 17.8 H Plt Count (130 - 400 /CUMM) 357 416 H MPV (7.4 - 10.4 FL) 7.4 7.4 Gran % (42.2 - 75.2 %) 88.4 H 91.0 H Lymphocytes % (20.5 - 51.1 %) 5.3 L 4.6 L Monocytes % (1.7 - 9.3 %) 4.3 3.6 Eosinophils % (0 - 5 %) 1.9 0.7 Basophils % (0.0 - 2.0 %) 0.1 0.1 Absolute Granulocytes (1.4 - 6.5 /CUMM) 11.4 H 16.5 H Absolute Lymphocytes (1.2 - 3.4 /CUMM) 0.7 L 0.8 L Absolute Monocytes (0.10 - 0.60 /CUMM) 0.6 0.7 H Absolute Eosinophils (0.0 - 0.7 /CUMM) 0.2 0.1 Absolute Basophils (0.0 - 0.2 /CUMM) 0 0 PUBS MCHC (33.0 - 37.0 G/DL) 32.6 L 32.3 L Assessment/Plan Assessment/Plan 86yo female with colovesical fistula s/p Bernardo's with ureteral re-anastamosis due to ureteral injury while dissection tissue from severe inflammatory reaction from diverticulitis. Repaired over double j stent without issue. Pt doing well. cont starr until able to reassess her bladder as an outpt with cystoscopy. Core Measures/Miscellaneous Venous Thromboembolism VTE Risk Factors: Age > 40, Inflammatory bowel Dx, Surgery VTE Contraindications: No Contraindications VTE Diagnosis: No VTE Type: NONE VTE Confirmed by (Test): NONE Beta Derrick Is Beta Derrick a Home Med? No Antibiotics Is Patient on Antibiotics? Yes If Yes: infection Attending MD Review Statement Attending Statement Attending MD Statement: examined this patient
[2017-03-01 14:37] VITALS: BP 140/64
[2017-03-01 21:49] VITALS: BP 132/70
[2017-03-02 06:30] VITALS: BP 142/78
[2017-03-02 08:13] LABS: ABSOLUTE BASOPHIL COUNT 0 /CUMM (0.0-0.2); ABSOLUTE EOSINOPHIL COUNT 0.3 /CUMM (0.0-0.7); ABSOLUTE GRANULOCYTE CT 9.5 /CUMM (1.4-6.5); ABSOLUTE LYMPH COUNT 0.6 /CUMM (1.2-3.4); ABSOLUTE MONOCYTE COUNT 0.5 /CUMM (0.10-0.60); BASOPHIL % 0.3 % (0.0-2.0); GRANULOCYTE % 86.9 % (42.2-75.2); MEAN CORPUSCULAR HGB 27.1 PG (27.0-31.0); MEAN CORPUSCULAR HGB CONC 32.8 G/DL (33.0-37.0); MEAN CORPUSCULAR VOLUME 82.7 FL (81.0-99.0); MEAN PLATELET VOLUME 7.6 FL (7.4-10.4); PLATELET COUNT 380 /CUMM (130-400)
--- NOTE | 2017-03-02 08:38 | PN- General Surgery ---
Surgical Brief Attending Note Brief Attending Note: Patient reports "air in the bag" and is tolerating clears Exam: Awake alert oriented, acute distress, abdomen soft, ROMANA minimal serous, stoma viable Plan: Advanced to full liquids Hep-Lock IVs Patient will keep Montemayor for minimum of 10 days-likely moved as outpatient
[2017-03-02 09:30] LABS: HEMATOCRIT 30.6 % (37-47)
[2017-03-02 09:37] LABS: WHITE BLOOD CELL COUNT 10.9 /CUMM (4.8-10.8)
[2017-03-02 14:12] VITALS: BP 134/70
--- NOTE | 2017-03-02 21:12 | Patient Discharge Instructions ---
Discharge Instructions General Discharge Information You were seen/treated for: 02/17 colovesical fistula 02/26 open hartmans & repair of ureteral injury 03/01 Acute blood loss anemia You had these procedures: See above Watch for these problems: Worsening abdominal pain, nausea, vomiting, fever, worsening redness or discharge around the wound Call Surgeon to remove: [place] (14 days) Do not soak the wound: Yes No bath, but you may shower: Yes Other wound care: Dry sterile dressings every day. call to make an appointment with her surgeon in approximately 1-2 weeks Special Instructions: Continue to take your antibiotics until March 08 as directed Diet Continue normal diet: Yes Activity Full Activity/No Limits: No Activity Self Limited: Yes Pounds, do NOT lift more than: 10 Acute Coronary Syndrome Inclusion Criteria At DC or during hospital stay patient has or had the following: ACS DIAGNOSIS No Discharge Core Measures Meds if any: Prescribed or Continued at Discharge Meds if any: NOT Prescribed or Continued at Discharge Congestive Heart Failure Inclusion Criteria At DC or during hospital stay patient has or had the following: CHF DIAGNOSIS No Discharge Core Measures Meds if any: Prescribed or Continued at Discharge Meds if any: NOT Prescribed or Continued at Discharge Cerebrovascular accident Inclusion Criteria At DC or during hospital stay patient has or had the following: CVA/TIA Diagnosis No Discharge Core Measures Meds if any: Prescribed or Continued at Discharge Meds if any: NOT Prescribed or Continued at Discharge Venous thromboembolism Inclusion Criteria VTE Diagnosis No VTE Type NONE VTE Confirmed by (Test) NONE Discharge Core Measures - Per Current guidelines, there needs to be overlap - treatment for the first 5 days of Warfarin therapy. - If discharged on Warfarin prior to 5 days of - overlap therapy, the patient will need to be - assessed for post discharge needs including - *Post discharge parental anticoagulation - *Warfarin and/or parental anticoagulation education - *Follow up date to check INR post discharge At least 5 days overlap therapy as Inpatient No Meds if any: Prescribed or Continued at Discharge Note: Overlap Therapy is Warfarin and Anticoagulant Meds if any: NOT Prescribed or Continued at Discharge
[2017-03-02] MEDS ORDERED: ULTRAM50 M1 PO (21:13)
[2017-03-02 22:32] VITALS: BP 142/84
[2017-03-03 06:50] VITALS: BP 156/74
--- NOTE | 2017-03-03 07:20 | PN- General Surgery ---
See Addendum Subjective Subjective: The patient is seen this morning postoperatively day #5. She reports that her pain is under adequate control and she is tolerating a full liquid diet with some mild intermittent nausea. She has no other complaints at the current time. Objective Vital Signs and I&Os Vital Signs Date Time Temp Pulse Resp B/P B/P Pulse O2 O2 Flow FiO2 Mean Ox Delivery Rate 03/02 2232 98.0 79 20 142/84 95 Room Air 03/02 1412 98.0 80 20 134/70 95 Room Air 03/02 1337 Room Air Room Air 03/02 1323 Room Air Room Air 03/02 0839 70 140/70 Intake & Output 03/03 0800 03/03 0000 03/02 1600 03/02 0800 03/02 0000 03/01 1600 Intake Total 270 512 647 7324 1350 Output Total 1000 233 002 9836 1755 Balance 270 -700 49 -950 -853 -405 Intake, Blood 350 350 Product Intake, IV 30 100 300 400 Intake, Oral 240 300 800 800 600 Number 0 Bowel Movements Output, 1 3 5 Drainage Output, Urine 1000 313 524 7228 1750 Physical Exam: Gen.: Alert and in no obvious distress Skin: Warm and dry Abdomen: Softly distended, appropriate incisional tenderness, bowel sounds positive. Surgical incision is clean, dry, and intact without signs of infection. ROMANA 1 holding suction with serous drainage in the bulb. Colostomy is pink and viable with gas but no stool in the bag Extremities: Bilateral lower extremities are warm without calf tenderness. Assessment/Plan Assessment/Plan Assessment: 86-year-old female status post Leigh's procedure for a colovesicular fistula postoperative day #6. The patient is progressing and bowel function is slowly returning. Plan: Consider DC ROMANA Continue antibiotics Follow-up morning laboratory studies Strict I's and O's Keep Montemayor catheter seconds to ureteral injury GI and DVT prophylaxis Out of bed Incentive spirometry Daily wound and colostomy care Continue full liquid diet until bowel function improves Core Measures/Miscellaneous Venous Thromboembolism VTE Risk Factors: Age > 40, Inflammatory bowel Dx, Surgery VTE Contraindications: No Contraindications VTE Diagnosis: No VTE Type: NONE VTE Confirmed by (Test): NONE Beta Derrick Is Beta Derrick a Home Med? No Antibiotics Is Patient on Antibiotics? Yes If Yes: infection
[2017-03-03 14:11] VITALS: BP 142/56
[2017-03-03 22:40] VITALS: BP 132/68
[2017-03-04 06:19] VITALS: BP 136/68
--- NOTE | 2017-03-04 07:06 | PN- General Surgery ---
Subjective Subjective: The patient was seen this point postoperatively day #6. She reports her pain is under adequate control and she is tolerating a full liquid diet without nausea. She has had a significant amount of gas in her back but still no stool. She is eager to try some regular food and understands that she has to take it slowly. She had no other complaints at the current time. Objective Vital Signs and I&Os Vital Signs Date Time Temp Pulse Resp B/P B/P Pulse O2 O2 Flow FiO2 Mean Ox Delivery Rate 03/04 0619 97.0 76 20 136/68 95 Room Air 03/03 2240 98.2 81 22 132/68 96 Room Air 03/03 1411 97.9 79 22 142/56 96 Room Air 03/03 0823 72 156/74 Intake & Output 03/04 0800 03/04 0000 03/03 1600 03/03 0800 03/03 0000 03/02 1600 Intake Total 140 300 380 270 300 900 Output Total 375 1000 913 945 9013 851 Balance -235 -700 -125 -105 -700 49 Intake, IV 20 30 30 100 Intake, Oral 120 300 350 240 300 800 Number 0 0 Bowel Movements Output, 0 5 1 Drainage Output, Stool 0 0 Output, Urine 375 1000 187 882 6384 850 Physical Exam: Gen.: Alert and in no obvious distress Skin: Warm and dry Abdomen: Softly distended, appropriate incisional tenderness, bowel sounds positive. ROMANA holding suction with serous drainage in the bulb. The stoma is pink and viable with significant amount of gas but no stool. Extremities: Bilateral lower extremities are warm without calf tenderness. Assessment/Plan Assessment/Plan Assessment: 86-year-old female status post Leigh's procedure for a colovesicular fistula postoperative day #6. The patient is progressing as expected and her pain is under adequate control. Her bowel function is slowly returning and is tolerating a full liquid diet without nausea. Plan: Advance to low residue diet. The patient was educated with regards to having small amounts of food first and if it doesn't agree with her to back off and notify her nurse. TSERING AVENDANO Follow-up morning laboratory studies Continue current pain regiment GI and DVT prophylaxis Daily colostomy and wound care Out of bed and ambulate Incentive spirometry Continue antibiotics Core Measures/Miscellaneous Venous Thromboembolism VTE Risk Factors: Age > 40, Inflammatory bowel Dx, Surgery VTE Contraindications: No Contraindications VTE Diagnosis: No VTE Type: NONE VTE Confirmed by (Test): NONE Beta Derrick Is Beta Derrick a Home Med? No Antibiotics Is Patient on Antibiotics? Yes If Yes: infection
[2017-03-04 13:59] VITALS: BP 118/68
[2017-03-04 22:15] VITALS: BP 124/60
[2017-03-05 06:49] VITALS: BP 130/70
--- NOTE | 2017-03-05 07:15 | PN- Student ---
Subjective Subjective: Patient is sitting up in bed, awake with no complaints at this time. Denies chest pain/SOB, n/v, abdominal pain, headaches/dizziness. She has been out of bed and walking a little bit but feels too weak to do much more than that. She removed her ALPS overnight as she reports they make her hot and uncomfortable. She is tolerating her low residue diet well. Objective Objective: Vital Signs Result Date Time Pulse Ox 94 03/05 0649 B/P 130/70 03/05 0649 O2 Delivery Room Air 03/05 0649 Temp 98.1 03/05 0649 Pulse 80 03/05 0649 Resp 18 03/05 0649 O2 Flow Rate Room Air 03/02 1337 Intake & Output 03/05 0000 03/04 1600 03/04 0800 Intake Total 900 800 140 Output Total 450 700 375 Balance 450 100 -235 Intake, IV 20 Intake, Oral 900 800 120 Output, 0 Drainage Output, Stool 0 0 0 Output, Urine 450 700 375 General: awake, alert, oriented, NAD Lungs: CTAB, no wheeze/rales/rhonchi Heart: rapid rate, regular rhythm Abdomen: soft, non-distended, normoactive bowel sounds, nontender, dressings clean, dry and intact, stoma pink and viable, colostomy bag contains gas and minimal serous fluid, no stool Extremities: warm, no calf tenderness bilaterally, no edema/erythema Assessment/Plan Assessment: This is an 86 y/o woman POD # 7 open [facility] for colovesicular fistula repair and repair of ureteral injury with PMH significant for hypertension, hyperlipidemia, hypothyroidism. She has not had a bowel movement yet but is producing gas from her stoma and is tolerating her low residue diet well as well as continuing to put out adequate amounts of urine from her starr. Plan: Pain: continue current pain regimen DVT ppx: subq heparin, ALPS while in bed, OOB and ambulate as tolerated Abx: cipro/augmentin until 03/[address] [place] Continue Starr Diet: continue low residue diet Stoma wound care Will discuss with attending
[2017-03-05 08:36] LABS: ABSOLUTE BASOPHIL COUNT 0 /CUMM (0.0-0.2); ABSOLUTE EOSINOPHIL COUNT 0.5 /CUMM (0.0-0.7); ABSOLUTE GRANULOCYTE CT 6.7 /CUMM (1.4-6.5); ABSOLUTE LYMPH COUNT 1.1 /CUMM (1.2-3.4); ABSOLUTE MONOCYTE COUNT 0.6 /CUMM (0.10-0.60); BASOPHIL % 0.4 % (0.0-2.0); EOSINOPHIL % 5.8 % (0-5); GRANULOCYTE % 74.7 % (42.2-75.2); HEMATOCRIT 32.2 % (37-47); MEAN CORPUSCULAR HGB 26.8 PG (27.0-31.0); MEAN CORPUSCULAR HGB CONC 32.7 G/DL (33.0-37.0); MEAN PLATELET VOLUME 7.5 FL (7.4-10.4); PLATELET COUNT 415 /CUMM (130-400); RBC DISTRIBUTION WIDTH 18.2 % (11.5-14.5); RED BLOOD CELL CT 3.92 /CUMM (4.20-5.40)
--- NOTE | 2017-03-05 11:00 | PN- General Surgery ---
See Addendum Subjective Subjective: No acute overnight events reported. Was advanced to low residue diet yesterday and tolerated it without nausea and vomitting. She states that she does not have a full appetite so she is consuming small quantities presently. She denies chest pain, shortness of breath and difficulty breathing. She acknowledges a small amout of pelvic pain but states that it is well controlled with tramadol. She has been oob. Objective Vital Signs and I&Os Vital Signs Date Time Temp Pulse Resp B/P B/P Pulse O2 O2 Flow FiO2 Mean Ox Delivery Rate 03/05 0842 82 128/70 03/05 0649 98.1 80 18 130/70 94 Room Air 03/04 2215 99.1 83 16 124/60 96 Room Air 03/04 1359 98.2 87 20 118/68 95 Intake & Output 03/05 1600 03/05 0800 03/05 0000 03/04 1600 03/04 0800 03/04 0000 Intake Total 20 900 800 140 300 Output Total 400 450 501 634 3352 Balance -380 450 100 -235 -700 Intake, IV 20 20 Intake, Oral 900 800 120 300 Output, 0 Drainage Output, Stool 0 0 0 Output, Urine 400 450 294 346 4846 Physical Exam: General: Alert and oriented x3, no acute distress Cardiac: RRR, s1s2 Pulm: CTA bilatearlly Abd: Non-distended, ostomy with gas present and very small amount of stool noted at stoma center. Extremities: Moves all extermiteis, distal sensation intact. Skin warm and well perfused. DP pulses palpable. Bialteral calves soft and non-tender. Assessment/Plan Assessment/Plan Assessment: 86-year-old female status post Leigh's procedure for a colovesicular fistula postoperative day #7. The patient is progressing as expected and her pain is under adequate control. Her bowel function is slowly returning and is tolerating a low residue diet without nausea. Plan: Continue low residue diet. Follow-up morning laboratory studies Continue current pain regiment GI and DVT prophylaxis Daily colostomy and wound care Out of bed and ambulate Incentive spirometry Continue antibiotics Anticipate discharge to SNF likely tomorrow if bowel function returns completely. Core Measures/Miscellaneous Venous Thromboembolism VTE Risk Factors: Age > 40, Inflammatory bowel Dx, Surgery VTE Contraindications: No Contraindications VTE Diagnosis: No VTE Type: NONE VTE Confirmed by (Test): NONE Beta Derrick Is Beta Derrick a Home Med? No Antibiotics Is Patient on Antibiotics? Yes If Yes: infection
[2017-03-05 14:32] VITALS: BP 140/70
[2017-03-05 22:19] VITALS: BP 122/60
[2017-03-06 07:18] VITALS: BP 124/60
--- NOTE | 2017-03-06 08:31 | PN- Student ---
WALT MORALES 03/06/17 0814: Subjective Subjective: No complaints. Denies chest/abdominal pain, SOB, headache, dizziness. Feels more energized this morning. Has been OOB and ambulating more since yesterday. Is tolerating low residue diet with no nausea/vomitting. Made stool and gas from ostomy site overnight. Objective Objective: Vital Signs Result Date Time Pulse Ox 93 03/06 718 B/P 124/60 03/06 718 Temp 98.1 03/06 07 Pulse 73 03/06 0718 Resp 20 03/06 0718 O2 Delivery Room Air 03/05 2219 O2 Flow Rate Room Air 03/02 1337 Intake & Output 03/06 0000 03/05 1600 03/05 0800 Intake Total 480 800 20 Output Total 550 300 400 Balance -70 500 -380 Intake, IV 20 Intake, Oral 480 800 Output, Urine 550 300 400 General: awake, alert, oriented, NAD Lungs: CTAB, no wheeze/rales/rhonchi, good air movement bilaterally Heart: S1 S2, RRR, no M,R,G Abdomen: soft, non-distended, normoactive bowel sounds, non-tender, no erythema/ edema Wound: dressing clean, dry and intact; incision site clean, no erythema/edema/ tenderness Extremities: gross motor/sensory function intact, warm, non-tender, no edema/ erythema, no calf tenderness bilaterally Starr in place, about 40 cc clear yellow urine in bag Results Results: Laboratory Tests 03/05/17 0725: Anion Gap 6, Estimated GFR > 60, BUN/Creatinine Ratio 26.3 H, CBC w Diff NO MAN DIFF REQ, RBC 3.92 L, MCV 82.0, MCH 26.8 L, RDW 18.2 H, MPV 7.5, Gran % 74.7, Lymphocytes % 12.1 L, Monocytes % 7.0, Eosinophils % 5.8 H, Basophils % 0.4, Absolute Granulocytes 6.7 H, Absolute Lymphocytes 1.1 L, Absolute Monocytes 0.6, Absolute Eosinophils 0.5, Absolute Basophils 0, PUBS MCHC 32.7 L Assessment/Plan Assessment: This is an 86 y/o woman POD # 8 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 Plan: Diet: ? progress to regular diet as tolerated Pain: continue current pain management regimen Abx: cipro/augmentin until 03/08, meropenem for infection DVT ppx: subq heparin, ALPS in bed, OOB and ambulate floors Stoma: change ileostomy bag, daily stoma care Continue starr ? D/C today to ECF Follow up with Dr. Hermosillo as outpatient in one week Will discuss with attending NIC DICKSON 03/06/17 0842: Assessment/Plan Plan: agree with above PA-S note She now has stool in her stoma bag Tolerating diet Stable for discharge to ecf today Will need to keep her Starr catheter for a minimum of 10 days postop- catheter should only be removed by Dr. Florencia Tran Patient should follow up with in the office sometime next week for suture removal and routine postoperative follow-up
[2017-03-06] MEDS ORDERED: AUGMENTIN 875-1 EACH PO (08:49)
[2017-03-06] MEDS ORDERED: CIPRO500 M1 PO (08:49)
--- NOTE | 2017-03-06 08:51 | Surgical Discharge Summary ---
Visit Information Visit Dates Admission Date: 02/17/17 Discharge Date: 03/06/17 History of Present Illness Chief Complaint: colovesical fistula Medical History Neurological: NONE EENT: NONE Cardiovascular: hypertension, hyperlipidemia Respiratory: NONE Gastrointestinal: constipation, ABDOMINAL HERNIA Hepatic: sp cholecystectomy Renal: NONE Musculoskeletal: degen joint disease Psychiatric: NONE Endocrine: hypothyroidism Blood Disorders: NONE Cancer(s): NONE [employer]UR[employer]/Reproductive: fibroid, d&c 2 weeks ago- fibroids Other Medical Hx: urge incontinence History of MRSA: No History of VRE: No History of CDIFF: No Isolation History: Standard Pneumonia Vaccine: 07/16/16 Influenza Vaccine: 07/14/16 Surgical History Pertinent Surgical History: cholecystectomy, knee replacement (bilateral), B/L TRK dupuytren's 5th digit LAPROSCOPIC HIATAL HERNIA REPAIR hiatal hernia repair (07/17/2016) Family History Relations & Conditions If Any: MOTHER FH: heart disease FATHER FH: diabetes mellitus FH: heart disease Psychosocial History Where Do You Live? Home Who Do You Live With? Patient/Self Services at Home: Home Health Aide What is Your Primary Language? Albanian ETOH Use: denies use Review of Systems: see h&p Hospital Course Course Attending Physician: JT DAMON JR, DO Primary Care Physician: AZAM JARRELL MD Hospital Course: Sent as a direct admission by on 02/17 17 for colovesical fistula. She was started on IV antibiotics and seen in consultation by ( director reactor projects) for pre-operative risk assessment. She had an exploratory laparotomy with Henry's procedure, left oophorectomy, cysto/ureteral stents, ureteroscopy and repair of left ureter on 02/26/17 by and , for her colovescial fistula from history of complicated diverticulitis. She was continued on iv antibiotics post-operatively through her discharge, and will continue them until 03/08/17. She was transfused 2u prbc on 03/01 for jeannette- operative acute blood loss anemia. She was followed in conjunction with the medical team and cardiology, without any significant post-operative complications. A starr was left in place as per , due to the ureteral injury and repair, for which she will continue to have a starr in place until she is seen by as an outpatient. She has been seen and treated by PT, who is recommending short term rehab. She is currently tolerating a low residue diet, and has return of bowel function finally, as proved by soft brown stool in the colostomy bag. Complications: None Allergies: Coded Allergies: omeprazole (Intermediate, GI UPSET 08/01/16) lisinopril (??? 02/03/17) codeine (Intermediate, INCREASED PAIN, N/V 08/01/16) oxycodone (From PERCOCET) (NAUSEA / VOMITING 02/03/17) Disposition Summary Disposition Principal Diagnosis: Complicated diverticulitis Colovesical fistula Additional Diagnosis: same, s/p Surgery Date: 02/26/17 Name of Procedure: 1. Leigh's procedure (sigmoidectomy with end colostomy) 2. Left oophorectomy 3. Cystoscopy with placement of bilateral ureteral catheters 4. Ureteroscopy 5. Repair of left ureter Discharge Disposition: SNF Discharge Instructions General Discharge Information Code Status: Full Code Patient's Diet: low residue diet Patient's Activity: no heavy lifting >10 lbs. no strenuous activity. continue PT. Follow-Up Instructions/Appts: Stable for discharge to [facility] today Will need to keep her Starr catheter for a minimum of 10 days postop- catheter should only be removed by Dr. Elle Tran Patient should follow up with in the office sometime next week for staple removal and routine postoperative follow-up To continue cipro / augmentin until 03/08/17 per Medications at Discharge Discharge Medications: Continue taking these medications: Levothyroxine Sodium (Levothyroxine Sodium) 100 MCG TABLET 1 Tablet ORAL DAILY BEFORE BREAKFAST Comments: Last Taken: 09/01/16 : 5:00 AM Oxybutynin Chloride (Oxybutynin Chloride) 5 MG TABLET 1 Tablet ORAL EVERY 48 HOURS (Every 2 days) Days = 30 Instructions: Can use daily as tolerated. Comments: Last Taken: 09/01/16 Time: 12:00 PM Sennosides/Docusate Sodium (Senna S Tablet) 8.6 MG-50 MG TABLET 1 Tablet ORAL DAILY as needed for CONSTIPATION Start taking the following new medications: Tramadol HCl (Ultram) 50 MG TABLET 1 Tablet ORAL EVERY SIX HOURS NEEDED as needed for pain Qty = 30 No Refills Ciprofloxacin HCl (Cipro) 500 MG TABLET 1 Tablet ORAL TWICE DAILY Days = 2 No Refills Instructions: to continue cipro / augmentin until 03/08/17 per Amoxicillin/Potassium Clav (Augmentin 875-125 Tablet) 875 MG-125 MG TABLET 1 Tablet ORAL TWICE DAILY Days = 2 No Refills Instructions: to continue through 03/08/17 per Copies To: JOANN SZYMANSKI,ELLE; BUDDY SZYMANSKI,VAHE; CHRYSTAL SZYMANSKI,AZAM Leyva
--- NOTE | 2017-03-06 13:38 | PN- General Surgery ---
Subjective Subjective: feels well. drinking and eating some w no N/V . Montemayor still in Objective Vital Signs and I&Os Vital Signs Date Time Temp Pulse Resp B/P B/P Pulse O2 O2 Flow FiO2 Mean Ox Delivery Rate 03/06 0906 92 118/68 03/06 0718 98.1 73 20 124/60 93 03/05 2219 98.4 79 20 122/60 95 Room Air 03/05 1432 98.6 92 20 140/70 96 Room Air Intake & Output 03/06 1600 03/06 0800 03/06 0000 03/05 1600 03/05 0800 03/05 0000 Intake Total 120 600 800 20 900 Output Total 500 550 300 400 450 Balance -380 50 500 -380 450 Intake, IV 20 Intake, Oral 120 600 800 900 Output, Stool 100 0 Output, Urine 400 550 300 400 450 Physical Exam Abdomen: non-tender, distended but soft. stoma functioning Assessment/Plan Assessment/Plan Doing well s/p Hartmanns and take down colovesical fistula w ureteral injury repaired and stented. Stoma now working and taking diet so can go to ECF today Core Measures/Miscellaneous Venous Thromboembolism VTE Risk Factors: Age > 40, Inflammatory bowel Dx, Surgery VTE Contraindications: No Contraindications VTE Diagnosis: No VTE Type: NONE VTE Confirmed by (Test): NONE Beta Derrick Is Beta Derrick a Home Med? No Antibiotics Is Patient on Antibiotics? Yes If Yes: infection
[2017-03-06 14:19] VITALS: BP 122/74
[2017-03-06 14:46] VITALS: BP 122/74
== END 2017-03-06 15:10 | DRG 330 ==
LOC: ERH 14:31 → ERHI 20:10 → 2NB 20:10 → ENRESERV 02-18 02:33 → 2NB 02-18 05:12 → ENTRNSPT 02-26 17:07 → CMPTRNSPT 02-26 17:59 → ENPENDDIS 03-06 10:28 → 2NB 03-06 15:10
PROVIDERS: Nurse Practitioner; Physician Assistant; Physician Assistant Surgical; ADMIT Colon & Rectal Surgery
PROC: 0DBN0ZZ Excision of Sigmoid Colon, Open Approach (ICD-10-PCS; principal; 2017-02-26)
PROC: 0D1M0Z4 Bypass Descending Colon to Cutaneous, Open Approach (ICD-10-PCS; 2017-02-26)
PROC: 0UT10ZZ Resection of Left Ovary, Open Approach (ICD-10-PCS; 2017-02-26)
PROC: 0TQ70ZZ Repair Left Ureter, Open Approach (ICD-10-PCS; 2017-02-26)
PROC: 0T788DZ Dilation of Bilateral Ureters with Intraluminal Device, Via Natural or Artificial Opening Endoscopic (ICD-10-PCS; 2017-02-26)
DX: K57.20 Diverticulitis of large intestine with perforation and abscess without bleeding (principal); J90 Pleural effusion, not elsewhere classified; I27.2 Other secondary pulmonary hypertension; N39.0 Urinary tract infection, site not specified; N31.9 Neuromuscular dysfunction of bladder, unspecified; N99.71 Accidental puncture and laceration of a genitourinary system organ or structure during a genitourinary system procedure; N32.1 Vesicointestinal fistula; D62 Acute posthemorrhagic anemia; I10 Essential (primary) hypertension; E03.9 Hypothyroidism, unspecified; M19.90 Unspecified osteoarthritis, unspecified site; Z96.653 Presence of artificial knee joint, bilateral; Y83.8 Other surgical procedures as the cause of abnormal reaction of the patient, or of later complication, without mention of misadventure at the time of the procedure; Y92.234 Operating room of hospital as the place of occurrence of the external cause; E87.6 Hypokalemia; B96.20 Unspecified Escherichia coli [E. coli] as the cause of diseases classified elsewhere; Z90.49 Acquired absence of other specified parts of digestive tract
CPT/HCPCS: 2NBP; 87070; 87075; 87184; ERO; 36415; 74177; 81001; 82436; 86920; 87040; 87045; 87086; 87147; 88305; 88307; 93005; 93010; 96360; 96361; 97110-GO; 97112-GO; 97116-GO; 97161-GP; 97530-GO; 99291; C2617; C9290; C9399; J0131; J0360; J0696; J1200; J1644; J1940; J2185; J2405; J3480; J7040; J7042; P9016; S5012

== ENCOUNTER 2017-12-16 02:28 | Observation (INO) | payer OTHER, MEDICARE ==
[~2017-12-16] VITALS: Ht 167.6 cm; Wt 68.0 kg
[~2017-12-16 02:28] MED LIST changes: +CIPRO500 M1 PO; +HYDROMORPHONE HC2 M1 PO; +IBUPROFEN600 M1 PO; +MELOXICAM15 M1 PO; +MYRBETRIQ50 M1 PO
[2017-12-16] MEDS ORDERED: ULTRAM50 M1 PO (10:42)
--- NOTE | 2017-12-16 13:01 | Patient Discharge Instructions ---
Discharge Instructions General Discharge Information You were seen/treated for: ventral hernia You had these procedures: lap ventral hernia repair Watch for these problems: temp>101, increased redness or drainage of wounds, increased nausea or vomiting or abdominal pain Other wound care: Keep incisions clean and dry. May shower no bathing or soaking until incisions are completely healed over. Diet Continue normal diet: Yes Activity Activity Self Limited: Yes Pounds, do NOT lift more than: 10 Acute Coronary Syndrome Inclusion Criteria At DC or during hospital stay patient has or had the following: ACS DIAGNOSIS No Discharge Core Measures Meds if any: Prescribed or Continued at Discharge Meds if any: NOT Prescribed or Continued at Discharge Congestive Heart Failure Inclusion Criteria At DC or during hospital stay patient has or had the following: CHF DIAGNOSIS No Discharge Core Measures Meds if any: Prescribed or Continued at Discharge Meds if any: NOT Prescribed or Continued at Discharge Cerebrovascular accident Inclusion Criteria At DC or during hospital stay patient has or had the following: CVA/TIA Diagnosis No Discharge Core Measures Meds if any: Prescribed or Continued at Discharge Meds if any: NOT Prescribed or Continued at Discharge Venous thromboembolism Inclusion Criteria VTE Diagnosis No VTE Type NONE VTE Confirmed by (Test) NONE Discharge Core Measures - Per Current guidelines, there needs to be overlap - treatment for the first 5 days of Warfarin therapy. - If discharged on Warfarin prior to 5 days of - overlap therapy, the patient will need to be - assessed for post discharge needs including - *Post discharge parental anticoagulation - *Warfarin and/or parental anticoagulation education - *Follow up date to check INR post discharge At least 5 days overlap therapy as Inpatient No Meds if any: Prescribed or Continued at Discharge Note: Overlap Therapy is Warfarin and Anticoagulant Meds if any: NOT Prescribed or Continued at Discharge
--- NOTE | 2017-12-16 13:05 | Surg Short-stay <48hrs Dis Sum ---
Visit Information Visit Dates Admission Date: 12/16/17 Discharge Date: 12/17/17 Surgical Short Stay DC Summary Admission Diagnosis: Ventral hernia Final Diagnosis: Same, s/p lap ventral hernia repair Procedure(s): Lap ventral hernia repair = see operative report Summary/Significant Findings: Pt underwent a lap ventral hernia repair by Dr Bryan on 12/16 and was admitted overnight for observation due to extensive adhesions noted at surgery. She was able to tolerated liquids which were advanced to regular food by the following morning. At the time of discharge her pain was well controlled on oral medication and she was voiding spontaneously. Condition at Discharge: good Discharge Disposition: home or self care Discharge instructions provided to patient/family: Yes Post discharge follow-up plan: Pt instructed to call for follow up within two weeks of discharge with Dr Bryan. FU with PCP within two weeks. Copies to: Randi SZYMANSKI,[place]
--- NOTE | 2017-12-16 13:06 | Admission Core Measures ---
Acute Coronary Syndrome (CM) ACS Core Measures Acute Coronary Syndrome Diagnosis No Congestive Heart Failure (NEW) CHF Core Measures Congestive Heart Failure Diagnosis No Cerebrovascular Accident (NEW) CVA Core Measures CVA/TIA Diagnosis No Venous Thromboembolism VTE Core Tyson (View Protocol) VTE Risk Factors Surgery No Mechanical VTE Prophylaxis d/t N/A MechProphylax Ordered No VTE Pharm Prophylaxis d/t NA PharmProphylax ordered Problem List As ranked by this Provider includes Assessment & Plan 1. S/P ventral herniorrhaphy HOME MEDS Home Med List Nebivolol HCl (Bystolic) 5 MG TABLET 1 TAB PO DAILY BP (Reported) Tramadol HCl (Ultram) 50 MG TABLET 1 TAB PO Q4P PRN pain
--- NOTE | 2017-12-16 13:13 | Operative Report ---
Operative/Inv Procedure Report Surgery Date: 12/16/17 Name of Procedure: Laparoscopic lysis of adhesions Laparoscopic repair of incisional hernia with parietex mesh Pre-Operative Diagnosis: Incisional hernia Post-Operative Diagnosis: Same Estimated Blood Loss: scant (minimal) Surgeon/Separator Tender: Randi SZYMANSKI,Angel [place]. Anesthesia: general endotracheal tube Specimens: None Complications: None Condition: Good Operative Indication: Incisional hernia Operative/Procedure Note Note: The patient was placed on the operating table in the supine position. A timeout was taken. Sequential stockings were applied. The patient was placed under general anesthesia. A Montemayor catheter was placed. The abdomen was prepped and draped in the usual sterile manner. A mixture of 2% lidocaine and 0.5% Marcaine was locally infiltrated in the right upper quadrant. An oblique incision was made in the right upper quadrant taken down through the skin and subcutaneous tissue. Bleeding points were controlled with the electrocautery device. The fascia was incised parallel to its fiber lengths and dissected down to the peritoneum. The peritoneum was identified and sharply entered. A blunt port balloon was placed into the peritoneal cavity and the balloon was inflated and locked in place. Air was insufflated into the area but the balloon had dissected into the subcutaneous space so it was repositioned and then a pneumoperitoneum was established. A 10 mm laparoscope was introduced into the peritoneal cavity and the above findings were noted with a lot of adhesions especially small bowel to the anterior abdominal wall at the superior aspect of the hernia. A 5 mm port was placed under direct laparoscopic visualization in the right lower quadrant after local anesthesia was infiltrated. Blunt and sharp dissection was then used to slowly take down all the small bowel adhesions to the anterior abdominal wall area the Harmonic scalpel was also used. After a complete lysis of adhesions 5 mm ports were also placed in the left upper quadrant and the left lower quadrant after local anesthetic was placed. The previous colostomy incision in the left abdomen was noted to be intact with no herniation. She had a central herniation at the infraumbilical position from her old midline incision. A spinal needle was used to identify the fascial edges at the skin and skin black were made with a marking pen. 3 cm were added circumferentially and a 12 x 12 cm piece of mesh was eventually used. Grafton-Anthony sutures were placed at 4 points around the mesh to fix it to the anterior abdominal wall. The mesh was soaked in bacitracin antibiotic solution. It was then rolled up and inserted into the peritoneal cavity. The mesh was unrolled in the peritoneal cavity. Incisions were made in the skin corresponding to the points where the sutures would be tied. The suture passer was used to go through the abdominal wall and grab the Grafton-Anthony sutures and pull them up through the abdominal wall. After all 4 sets of sutures were grasped and pulled through the abdominal wall they were tied pulling the mesh up to the abdominal wall. The mesh laid quite nicely along the anterior abdominal wall with good overlap around the hernia defect circumferentially. The remainder of the mesh was tacked to the abdominal wall using the absorbable tack tacker. Circumferential rows of tacks were used on the mesh. At the end of procedure the mesh was laying quite nicely along the intra-abdominal wall. Hemostasis was noted to be good. The abdomen was allowed to desufflate. The right upper quadrant incision was closed with a running heavy Vicryl suture on the fascial layer. 3-0 Vicryl subcutaneous closure was used. All skin incisions were closed with 5-0 Vicryl subcuticular closure. Steri-Strips and Band-Aids were applied to all wounds. The Montemayor catheter was removed. The patient tolerated the procedure well and was taken to the recovery room with stable vital signs. Findings: Dense small bowel adhesions. Incisional hernia in the infraumbilical midline incision. Discharge Disposition: PACU
--- NOTE | 2017-12-16 14:50 | PN- General Surgery ---
Subjective Subjective: Post op check Awake, alert No complaints at this time Pain is well controlled, denies nausea, tolerating clear liquids Objective Vital Signs and I&Os VSS, afebrile General: alert and oriented times three Chest: clear anteriorly bilaterally, RRR Abd: nondistended, soft, +bs Ext: warm, no edema, no calf tenderness Wds: all dressed and dry Assessment/Plan Assessment/Plan 87yo female s/p lap lissette, ventral hernia repair with mesh 23 hr obs due to extensive lysis of adhesions pain management - tramodol per pt request ambulate ad jomar advance diet as tolerated likely dc home tomorrow Core Measures Venous Thromboembolism VTE Risk Factors Surgery No Mechanical VTE Prophylaxis d/t N/A MechProphylax Ordered No VTE Pharm Prophylaxis d/t NA PharmProphylax ordered
[2017-12-16 15:00] VITALS: BP 157/70
[2017-12-16 16:59] VITALS: BP 142/60
[2017-12-16 20:00] VITALS: BP 130/50
[2017-12-17 01:01] VITALS: BP 138/58
[2017-12-17 05:00] VITALS: BP 148/60
--- NOTE | 2017-12-17 08:58 | PN- General Surgery ---
Subjective Subjective: POD #1 s/p lap incisional hernia repair with mesh. Resting comfortably in bed. Passing flatus. No BM yet. Yet to ambulate. Voiding spontaneously. Tolerating a regular diet. Objective Vital Signs and I&Os Vital Signs Date Time Temp Pulse Resp B/P B/P Pulse O2 O2 Flow FiO2 Mean Ox Delivery Rate / 0800 97 Nasal 2.0L Cannula / 0500 97.5 55 18 148/60 98 / 0101 97.5 48 18 138/58 98 04/ 0000 98 Nasal 2.0L Cannula / 2030 50 04/ 2000 98.2 50 18 130/50 96 Nasal 2.0L Cannula 12/16 1659 97.8 47 17 142/60 97 Nasal 3.0L Cannula 12/16 1600 95 Nasal 2.0L Cannula 12/16 1500 97.7 50 16 157/70 95 Nasal 2.0L Cannula Intake & Output 12/17 1600 12/17 0800 12/17 0000 12/16 1600 12/16 0812/16 0000 Intake Total 840 540 Output Total 300 1 Balance 540 539 Intake, IV 600 300 Intake, Oral 240 240 Number 0 Bowel Movements Output, Urine 300 1 Patient 150 lb Weight Physical Exam: Gen: AAox3 in NAD Cor: S1+S2+ Lungs: CTA saima Abd: soft, NT, ND, +Bs x4. bandaids C/D/I. Steristrips underneath intact. Ext: no edema or calf tenderness to saima lower extremities. Current Medications: Current Medications Sig/Miguel Start time Last Medication Dose Route Stop Time Status Admin Acetaminophen 650 MG Q6P PRN 12/16 1515 AC PO Acetaminophen 1,000 MG .STK-MED ONE 12/16 1023 DC IV 12/16 1024 Dextrose/Sodium 1,000 ML .[id number] 12/16 1515 DC 12/17 Chloride IV 0501 Fentanyl Citrate 250 MCG .STK-MED ONE 12/16 1022 DC IM 12/16 1023 Heparin Sodium 5,000 UNIT Q8 12/16 1400 AC 12/17 (Porcine) SC 0500 Midazolam HCl 2 MG .STK-MED ONE 12/16 1023 DC IM 12/16 1024 Morphine Sulfate 4 MG .STK-MED ONE 12/16 1023 DC IM 12/16 1024 Nebivolol 5 MG DAILY 12/17 1000 AC PO Ondansetron HCl 4 MG Q6P PRN 12/16 1515 AC IV Tramadol HCl 50 MG Q4P PRN 12/16 1515 AC /06 PO 0510 Assessment/Plan Assessment/Plan A: POD #1 s/p lap incisional hernia repair with mesh; AVSS Plan: Likely d/c home today. Will discuss with Dr. Bryan. Core Measures Venous Thromboembolism VTE Risk Factors Surgery No Mechanical VTE Prophylaxis d/t N/A MechProphylax Ordered No VTE Pharm Prophylaxis d/t NA PharmProphylax ordered
[2017-12-17 09:04] VITALS: BP 138/82
[2017-12-17 14:13] VITALS: BP 140/82
== END 2017-12-17 14:15 ==
LOC: STS 02:28 → PACUH 12:09 → 2NB 12:09 → ENRESERV 13:42 → ENTRNSPT 14:15 → EDTRNSPT 14:20 → EDTRNSPTSTS 14:20 → 2NB 14:29 → CMPTRNSPT 14:51 → ENPENDDIS 12-17 11:14 → 2NB 12-17 11:23 → ENTRNSPT 12-17 13:54 → DELTRNSPT 12-17 14:04 → 2NB 12-17 14:15
DX: K43.6 Other and unspecified ventral hernia with obstruction, without gangrene (principal); M85.80 Other specified disorders of bone density and structure, unspecified site; K57.90 Diverticulosis of intestine, part unspecified, without perforation or abscess without bleeding; E78.5 Hyperlipidemia, unspecified; E03.9 Hypothyroidism, unspecified; I12.9 Hypertensive chronic kidney disease with stage 1 through stage 4 chronic kidney disease, or unspecified chronic kidney disease; N18.9 Chronic kidney disease, unspecified; I27.20 Pulmonary hypertension, unspecified; K21.9 Gastro-esophageal reflux disease without esophagitis; K44.9 Diaphragmatic hernia without obstruction or gangrene
CPT/HCPCS: 1328; 1530; 1748; 6040; 87086; 96372; C1781; G0378; J0131; J0690; J1644; J2001; J7042

== ENCOUNTER 2018-02-02 22:53 | Observation (INO) | payer OTHER, MEDICARE ==
[~2018-02-02] VITALS: Ht 170.2 cm; Wt 76.2 kg
[2018-02-02 23:18] LABS: ABSOLUTE BASOPHIL COUNT 0.1 /CUMM (0.0-0.2); ABSOLUTE EOSINOPHIL COUNT 1.4 /CUMM (0.0-0.7); ABSOLUTE GRANULOCYTE CT 9.1 /CUMM (1.4-6.5); ABSOLUTE LYMPH COUNT 0.6 /CUMM (1.2-3.4); ABSOLUTE MONOCYTE COUNT 0.6 /CUMM (0.10-0.60); BASOPHIL % 0.5 % (0.0-2.0); EOSINOPHIL % 11.9 % (0-5); GRANULOCYTE % 77.1 % (42.2-75.2); HEMATOCRIT 33.1 % (37-47); MEAN CORPUSCULAR HGB 29.8 PG (27.0-31.0); MEAN CORPUSCULAR HGB CONC 33.2 G/DL (33.0-37.0); MEAN CORPUSCULAR VOLUME 89.8 FL (81.0-99.0); PLATELET COUNT 339 /CUMM (130-400); RBC DISTRIBUTION WIDTH 14.6 % (11.5-14.5); RED BLOOD CELL CT 3.68 /CUMM (4.20-5.40); WHITE BLOOD CELL COUNT 11.8 /CUMM (4.8-10.8)
--- NOTE | 2018-02-02 23:27 | RADIOLOGY REPORT ---
EXAMINATION: CHEST 1 VIEW CLINICAL INFORMATION: Shortness of breath. CHF. COMPARISON: 11/01/2017. TECHNIQUE: An AP view of the chest is provided. FINDINGS: The cardiac silhouette is enlarged, though stable. There is a small left pleural effusion with airspace disease at the left base. The lungs are hyperinflated. Intact midline sternal wires are present. The osseous structures are stable. IMPRESSION: Stable cardiomegaly with small left pleural effusion with associated airspace disease at the left lung base.
--- NOTE | 2018-02-02 23:30 | ED DYSPNEA/ASTHMA COMPLAINT ---
History of Present Illness General Chief Complaint: Dyspnea (COPD, CHF, Other) Stated Complaint: BIBA FOR DIFF BREATHING, RECENT CARDIAC SURGERY Source: patient, family, old records Exam Limitations: no limitations Vital Signs & Intake/Output Vital Signs & Intake/Output Vital Signs Date Time Temp Pulse Resp B/P B/P Pulse O2 O2 Flow FiO2 Mean Ox Delivery Rate 02/03 0156 97.9 56 16 125/61 96 Room Air 02/02 2347 98 Nasal 3.0L Cannula 02/02 2303 Nasal 3.0L Cannula 02/02 2302 65 20 189/80 96 Nasal 3.0L Cannula ED Intake and Output 02/03 0000 02/02 1200 Intake Total 0 Output Total Balance 0 Intake, Oral 0 Patient 166 lb Weight Weight Estimated Measurement Method Allergies Coded Allergies: lisinopril (UNKNOWN PER PT 12/15/17) codeine (Intermediate, INCREASED PAIN, N/V 08/01/16) omeprazole (Intermediate, GI UPSET 07/03/17) oxycodone (From PERCOCET) (NAUSEA / VOMITING 02/03/17) Reconcile Medications Nebivolol HCl (Bystolic) 5 MG TABLET 1 TAB PO DAILY BP (Reported) Tramadol HCl (Ultram) 50 MG TABLET 1 TAB PO Q4P PRN pain Triage Note: PT BIBA FROM HOME C/O SOB THAT BEGAN THREE HOURS CLOTH EDGE SINGER. PT REPORTS "IT USUALLY GOES AWAY BY ITSELF BUT IT DIDN'T TODAY". PT REPORTS INTERMITTENT NON PRODUCTIVE COUGH. PT HAD OPEN HEART SURGERY THREE WEEKS AGO. NSR ON MONITOR. PLACED ON 3 L NC BY EMS. Triage Nurses Notes Reviewed? yes Onset: Abrupt Duration: hour(s): (3), constant, continues in ED Timing: recent history Severity: mild, moderate Activities at Onset: none Prior Episodes/Possible Cause: occasional episodes Associated Symptoms: cough, wheezing LMP (ages 10-50): post menopausal : No Patient currently breastfeeds: No HPI: 87-year-old female past medical history of hypertension, hyperlipidemia, coronary artery disease, 4 weeks status post coronary artery bypass graft, SD presents for evaluation of shortness of breath. Patient states that symptoms started about 3 hours prior to presentation she was at rest. She states that she feels short of breath at rest that is worse on exertion and laying backwards. She also reports a dry cough. No chest pain. She states that it feels similar to previous SD. No hemoptysis or lower extremity edema and no fever no nausea vomiting no sweats or chills. She sees Dr. MARTÍNEZ from cardiology. She does not smoke or history of COPD. (Kurt Staples) Past History Travel History Traveled to [place] past 21 day No Medical History Any Pertinent Medical History? 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/Reproductive: fibroid, d&c 2 weeks ago- fibroids Other Medical Hx: urge incontinence History of MRSA: No History of VRE: No History of CDIFF: No Influenza Vaccine: 07/04/17 Surgical History Surgical History: cholecystectomy, knee replacement (bilateral), B/L TRK dupuytren's 5th digit LAPROSCOPIC HIATAL HERNIA REPAIR hiatal hernia repair (07/17/2016) Psychosocial History Who do you live with Patient/Self Services at Home Home Health Aide What is your primary language Montenegrin Tobacco Use: Never used Family History Family History, If Any: MOTHER FH: heart disease FATHER FH: diabetes mellitus FH: heart disease Hx Contributory? No (Kurt Staples) Review of Systems Review of Systems Constitutional: Reports: no symptoms. EENTM: Reports: no symptoms. Respiratory: Reports: see HPI, cough, orthopnea, short of breath, wheezing. Cardiovascular: Reports: no symptoms. GI: Reports: no symptoms. Genitourinary: Reports: no symptoms. Musculoskeletal: Reports: no symptoms. Skin: Reports: no symptoms. Neurological/Psychological: Reports: no symptoms. Hematologic/Endocrine: Reports: no symptoms. Immunologic/Allergic: Reports: no symptoms. All Other Systems: Reviewed and Negative (Kurt Staples) Physical Exam Physical Exam General Appearance: well developed/nourished, no apparent distress, alert, awake Head: atraumatic, normal appearance Eyes: Bilateral: normal appearance, PERRL, EOMI. Ears, Nose, Throat: normal pharynx, normal ENT inspection, hearing grossly normal Neck: normal inspection, supple, full range of motion Respiratory: chest non-tender, no respiratory distress, rhonchi, wheezing Cardiovascular: regular rate/rhythm, normal peripheral pulses Peripheral Pulses: 2+ radial (R), 2+ radial (L) Gastrointestinal: normal bowel sounds, soft, non-tender, no organomegaly Extremities: normal inspection, normal range of motion, no edema Neurologic/Psych: no motor/sensory deficits, awake, alert, oriented x 3 Skin: intact, normal color, warm/dry Lymphatic: no anterior cervical jarrett Core Measures ACS in differential dx? No CVA/TIA Diagnosis No Sepsis Present: No Sepsis Focused Exam Completed? No (Wade GARCIA,Kurt) Progress Differential Diagnosis: asthma, AMI, bronchitis, CHF, COPD, pericarditis, pulmonary embolism, pneumonia, pneumothorax, unstable angina Plan of Care: Orders Procedure Date/time Status Regular Diet 02/03 B Active Patient Data 02/03 237 Active OXYGEN SETUP (GEN) 02/03 219 Active Saline Lock 02/[address] in observation 02/03 219 Active Vital Signs 02/03 219 Active Activity/Ambulation 02/03 219 Active Code Status 02/03 219 Active Add-on Test (ER Only) 02/02 2336 Active D-DIMER 02/02 2310 Complete TROPONIN LEVEL 02/02 2303 Complete COMPREHENSIVE METABOLIC PANEL 02/02 2303 Complete CBC WITHOUT DIFFERENTIAL 02/02 2303 Complete B-TYPE NATRIURETIC PEP (BNP) 02/02 2303 Complete Intake & Output 02/02 2300 Active EKG 02/02 225 Active Laboratory Tests 02/02/18 2310: Anion Gap 13, Estimated GFR 43 L, BUN/Creatinine Ratio 25.0, Glucose 166 H, Calcium 8.8, Total Bilirubin 0.4, AST 20, ALT 30, Alkaline Phosphatase 158 H, Troponin I 0.03, Cuu-P-Pemwqgrxict Pept 1430 H, Total Protein 7.0, Albumin 3.8, Globulin 3.2, Albumin/Globulin Ratio 1.2, D-Dimer High Sensitivty 2454 H, CBC w Diff NO MAN DIFF REQ, RBC 3.68 L, MCV 89.8, MCH 29.8, MCHC 33.2, RDW 14.6 H, MPV 8.0, Gran % 77.1 H, Lymphocytes % 5.5 L, Monocytes % 5.0, Eosinophils % 11.9 H, Basophils % 0.5, Absolute Granulocytes 9.1 H, Absolute Lymphocytes 0.6 L, Absolute Monocytes 0.6, Absolute Eosinophils 1.4, Absolute Basophils 0.1 Patient seen and evaluated. HERE FOR acute onset shortness of breath that is worse on exertion. She has no chest pain. Vital signs are stable on initial evaluation. Her EKG from today shows T-wave inversions in the lateral leads that are changed from previous POSSIBLY related to ischemia. Patient does have some wheezing and rhonchi bilaterally. DuoNeb ordered. Patient feels her shortness of breath today is similar to previous SD. Patient will likely require admission to rule out acute coronary syndrome. D-dimer is elevated a CTA will be obtained. Patient's EKG from [facility] was able to be obtained. The EKG does show T-wave inversions in the lateral leads that are seen today. There does not appear to be any acute change in today's EKG. Patient signed out to Dr. MORTON pending CTA and disposition Diagnostic Imaging: Viewed by Me: Radiology Read. Discussed w/RAD: Radiology Read. CXR Impression: PATIENT: BETHANY SAENZ PRESENT AGE: 87 PATIENT ACCOUNT NO: [id number] : 32 LOCATION: [facility] ORDERING PHYSICIAN: Kurt GARCIA SERVICE DATE: 02/02/18 EXAM TYPE: RAD - XRY-PORTABLE CHEST XRAY EXAMINATION: CHEST 1 VIEW CLINICAL INFORMATION: Shortness of breath. CHF. COMPARISON: 11/01/2017. TECHNIQUE: An AP view of the chest is provided. FINDINGS: The cardiac silhouette is enlarged, though stable. There is a small left pleural effusion with airspace disease at the left base. The lungs are hyperinflated. Intact midline sternal wires are present. The osseous structures are stable. IMPRESSION: Stable cardiomegaly with small left pleural effusion with associated airspace disease at the left lung base. DICTATED BY: Edgard Brothers MD DATE/TIME DICTATED:02/02/182321 ELECTRICIAN SUPERVISOR:SRAVAN DATE/TIME TRANSCRIBED:02/02/182321 CONFIDENTIAL, DO NOT COPY WITHOUT APPROPRIATE AUTHORIZATION. <Electronically signed in Other Vendor System> SIGNED BY: Edgard Brothers MD 02/02/182326 Initial ED EKG: normal sinus rhythm, T WAVE INVERSION IN LATERAL LEADS Prior EKG: unchanged (SEE [facility] EKG ) Rhythm Strip: normal sinus rhythm Hand-Off Endorsed To: Refugio Morton MD Endorsed Time: 139 Pending: CT (Kurt Staples) Radiology Impression: 1. No evidence of pulmonary embolism. 2. Small bibasilar dependent pleural effusions. Atelectasis at right lung base. 3. Status post median sternotomy with streaky opacities in the anterior mediastinum adjacent to the sternum. This is consistent with recent surgery. No abscess.. VTE: negative (Refugio Morton MD) Departure Departure Disposition: STILL A PATIENT Condition: Stable Referrals: Florence SZYMANSKI,Vance Leyva (PCP/Family) Departure Forms: Customer Survey General Discharge Information (Kurt Staples) Departure Clinical Impression Primary Impression: Dyspnea Qualifiers: Dyspnea type: unspecified Qualified Code: R06.00 - Dyspnea, unspecified Secondary Impressions: Bilateral pleural effusion Admission Note Documentation of Exam: Documentation of any treatments & extenuating circumstances including Concerns Regarding Discharge (functional status, medication knowledge or non-compliance, living conditions, etc.) that warrant an admission rather than observation: Observation Note Spoke With: Sukumar Interiano MD Physician Advisor Notified: THAO SZYMANSKI,SHANTANU [address] Patient In: Non-ED OBS Care Area Rationale for Observation: My rational for observation is as follows symptoms similar to previous SD. Cardiac monitoring IV diuresis supplemental oxygen medication adjustment cardiology evaluation continuing care discharge planning. PA/WAREHOUSE AND RECEIVING SUPERVISOR Co-Sign Statement Statement: ED Attending supervision documentation- x I saw and evaluated the patient. I have also reviewed all the pertinent lab results and diagnostic results. I agree with the findings and the plan of care as documented in the PA's/WAREHOUSE AND RECEIVING SUPERVISOR's documentation. s/p CABG with dyspnea, bilateral pleural effusions, CHF [] I have reviewed the ED Record and agree with the PA's/WAREHOUSE AND RECEIVING SUPERVISOR's documentation. [] Additions or exceptions (if any) to the PAs/WAREHOUSE AND RECEIVING SUPERVISOR's note and plan are summarized below: [] (Refugio Morton MD) Critical Care Note Critical Care Note Critical Care Time: non-applicable (Kurt Staples)
--- NOTE | 2018-02-03 01:58 | CT SCAN REPORT ---
EXAMINATION: CT ANGIOGRAM OF THE CHEST WITH AND WITHOUT CONTRAST (CT PULMONARY ANGIOGRAM FOR PE) CLINICAL INFORMATION: SOB RECENT SURGERY
COMPARISON: CT chest November 01, 2017. Portable chest x-ray February 02, 2018 TECHNIQUE: Prior to contrast administration, noncontrast localization images were obtained. Subsequently, multidetector volumetric imaging was performed from the thoracic inlet to below the diaphragms following the administration of 66 mL Optiray 320 intravenous contrast. No contrast reaction reported. Sagittal, coronal, and MIP oblique sagittal reformatted images were obtained on the CT workstation, uploaded to PACS, and reviewed. Total exam dose-length product 255.38 mGy-cm. FINDINGS: QUALITY OF STUDY/CONTRAST BOLUS: Satisfactory PULMONARY ARTERIES: No central or segmental pulmonary emboli. THORACIC AORTA: No aneurysm or dissection. There are atherosclerotic vascular wall calcifications of aorta. LUNG: There is a small region of dependent atelectasis at the right lung base. The lungs are otherwise clear. The central bronchial airways are open. PLEURA: There are small bilateral pleural effusions. MEDIASTINUM/CHEST WALL/AXILLA: Patient has had prior median sternotomy. There is streaky opacities in the retrosternal mediastinal fat. This is consistent with recent surgery. No focal abscess. No pericardial effusion. No bulky lymphadenopathy. OSSEOUS STRUCTURES: Status post median sternotomy. Kyphosis of dorsal spine with multilevel degenerative spondylosis. Anterior wedge compression deformity of the T12 vertebrae unchanged since lumbar spine radiograph June 22, 2017. UPPER ABDOMEN: Unremarkable. No reflux of contrast into the hepatic veins to suggest elevated right heart pressures. IMPRESSION: 1. No evidence of pulmonary embolism. 2. Small bibasilar dependent pleural effusions. Atelectasis at right lung base. 3. Status post median sternotomy with streaky opacities in the anterior mediastinum adjacent to the sternum. This is consistent with recent surgery. No abscess.. VTE: negative
--- NOTE | 2018-02-03 02:43 | History & Physical ---
Roge SZYMANSKI,[facility] 02/03/18 0243: General Information and HPI History of Present Illness: Ms. Saenz is an 87-year-old female with past medical history of hypertension, hyperlipidemia, abdominal hernia, cholecystectomy, hypothyroidism, colonic fistula status post proctosigmoidectomy with reversal, and coronary artery disease status post myocardial infarction and two-vessel CABG 4 weeks ago at [facility] who presents for shortness of breath. Patient presented to [facility] on January [address] elevation MS and underwent two-vessel CABG by Dr. Carey with left internal mammary artery to left anterior descending and saphenous vein graft to obtuse marginal. She subsequently had follow-up with Dr. Carey and Dr. Mcdonald. Upon discharge on January 12, she went to [facility] where she was generally well. She did develop a cough that was nonproductive and had some periods of shortness of breath that quickly resolved. This evening, she again developed nonexertional shortness of breath 2 hours prior to arrival that did not teetee. Because of this, she decided to come in for further evaluation. She says her surgery went well and there were no complications. She left [facility] and went home 2 days ago and was scheduled to begin cardiac therapy. She denies any chest pain, palpitations, nausea, vomiting, diarrhea, sweats, presyncope, abdominal pain, fever, chills, headache, or dysuria. She is a never smoker, denies alcohol or drug use. Allergies/Medications Allergies: Coded Allergies: lisinopril (UNKNOWN PER PT 12/15/17) codeine (Intermediate, INCREASED PAIN, N/V 08/01/16) omeprazole (Intermediate, GI UPSET 07/03/17) oxycodone (From PERCOCET) (NAUSEA / VOMITING 02/03/17) Past History Travel History Traveled to [place] past 21 day No Medical History Neurological: NONE EENT: NONE Cardiovascular: hypertension, hyperlipidemia Respiratory: NONE Gastrointestinal: constipation, ABDOMINAL HERNIA Hepatic: sp cholecystectomy Renal: NONE Musculoskeletal: degen joint disease Psychiatric: NONE Endocrine: hypothyroidism Blood Disorders: NONE Cancer(s): NONE [employer] 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 self Services at Home: Home Health Aide Primary Language: Indonesian Living Will? yes Functional Ability ADLs Independent: dressing, eating, toileting, bathing. Ambulation: independent IADLs Independent: shopping, housework, finances, food prep, telephone, transportation , medication admin. Review of Systems Review of Systems Constitutional: Reports: no symptoms. EENTM: Reports: no symptoms. Cardiovascular: Reports: no symptoms. Respiratory: Reports: see HPI. GI: Reports: no symptoms. Genitourinary: Reports: no symptoms. Musculoskeletal: Reports: no symptoms. Skin: Reports: no symptoms. Neurological/Psychological: Reports: no symptoms. Hematologic/Endocrine: Reports: no symptoms. Immunologic/Allergic: Reports: no symptoms. All Other Systems: Reviewed and Negative Exam & Diagnostic Data Last 24 Hrs of Vital Signs/I&O Vital Signs Date Time Temp Pulse Resp B/P B/P Pulse O2 O2 Flow FiO2 Mean Ox Delivery Rate 02/03 0156 97.9 56 16 125/61 96 Room Air 02/02 2347 98 Nasal 3.0L Cannula 02/02 2303 Nasal 3.0L Cannula 02/02 2302 65 20 189/80 96 Nasal 3.0L Cannula Intake & Output 02/03 0800 02/03 0000 02/02 1600 Intake Total 0 Output Total 700 Balance -700 0 Intake, Oral 0 Output, Urine 700 Patient 75.296 kg Weight Weight Estimated Measurement Method Physical Exam General Appearance Alert, Oriented X3, Cooperative, No Acute Distress Cardiovascular Regular Rate, Normal S1, Normal S2 Lungs Clear to Auscultation Abdomen Normal Bowel Sounds, Soft, No Tenderness Extremities No Edema, Normal Pulses, No Tenderness/Swelling Last 24 Hrs of Labs/Brad: Laboratory Tests 02/02/18 2310: Anion Gap 13, Estimated GFR 43 L, BUN/Creatinine Ratio 25.0, Glucose 166 H, Calcium 8.8, Total Bilirubin 0.4, AST 20, ALT 30, Alkaline Phosphatase 158 H, Troponin I 0.03, Own-J-Gjwagyeekhi Pept 1430 H, Total Protein 7.0, Albumin 3.8, Globulin 3.2, Albumin/Globulin Ratio 1.2, D-Dimer High Sensitivty 2454 H, CBC w Diff NO MAN DIFF REQ, RBC 3.68 L, MCV 89.8, MCH 29.8, MCHC 33.2, RDW 14.6 H, MPV 8.0, Gran % 77.1 H, Lymphocytes % 5.5 L, Monocytes % 5.0, Eosinophils % 11.9 H, Basophils % 0.5, Absolute Granulocytes 9.1 H, Absolute Lymphocytes 0.6 L, Absolute Monocytes 0.6, Absolute Eosinophils 1.4, Absolute Basophils 0.1 Assessment/Plan Assessment: Ms. Saenz is an 87-year-old female with past medical history of hypertension, hyperlipidemia, abdominal hernia, cholecystectomy, hypothyroidism, colonic fistula status post proctosigmoidectomy with reversal, and coronary artery disease status post myocardial infarction and two-vessel CABG 4 weeks ago at [facility] who presents for shortness of breath. On presentation, vital signs were T 97.9, HR 65, RR 20, BP 189/80, saturating 96 % on 3 L nasal cannula. Blood pressure improved to 125/61. Laboratories were significant for white blood cell count 11.8, BUN 30, creatinine 1.2 (baseline 3.9), glucose 166, alkaline phosphatase 158, BNP 1430, troponin 0 0.03. Chest x -ray showed a small left-sided pleural effusion. CT showed negative for PE but did show small bibasilar dependent pleural effusions and atelectasis of the right lung base. She will be placed in observation on telemetry and treated for the following problems: 1. Dyspnea 2. Small bilateral pleural effusions 3. Acute kidney injury #Dyspnea: Patient presents with dyspnea in setting of recent CABG. Most concerning would be heart failure. On exam, she does not appear to be overloaded, with lack of JVD or peripheral edema. Imaging does show small bilateral pleural effusions. She did receive some furosemide in the emergency room and feels a little better after that. She was previously followed by Dr. Parisi but has not seen her in a while because she is on medical leave. She has had a thoracocentesis in the past for pleural effusions that showed exudative pleural fluid but etiology was never discovered. -Consider pulmonology consult -EKG and troponins 3 -TTE -Cardiology consult -Furosemide 40 mg daily p.o. #Acute kidney in patient presents with creatinine 1.2, baseline is 0.9. Likely prerenal azotemia. -Avoid nephrotoxins -Hold hydrochlorothiazide and losartan #Chronic medical problems: -Continue other home medications -Confirm medication regimen in the morning DVT prophylaxis with heparin Heart healthy diet DNR/DNI As Ranked By This Provider Problem List: 1. Dyspnea Qualifiers Dyspnea type: unspecified Qualified Code: R06.00 - Dyspnea, unspecified Core Measures/Misc (05/30) Acute Coronary Syndrome ACS Diagnosis: No Congestive Heart Failure Congestive Heart Failure Diagnosis No Cerebrovascular Accident CVA/TIA Diagnosis: No VTE (View Protocol) VTE Risk Factors Age>40 No Mechanical VTE Prophylaxis d/t N/A MechProphylax Ordered No VTE Pharm Prophylaxis d/t NA PharmProphylax ordered Sepsis (View protocol) Sepsis Present: No If YES complete Sepsis Event Note If YES complete Sepsis Event Note Lalo Walsh 02/03/18 0431: General Information and HPI Allergies/Medications Home Med list Amiodarone (Cordarone) 200 MG TAB 1 TAB PO DAILY Heart Aspirin (Aspirin*) 81 MG TAB.CHEW 2 TAB PO DAILY heart (Reported) Atorvastatin Calcium 40 MG TABLET 1 TAB PO DAILY cholesterol (Reported) Fexofenadine HCl (Maisha Allergy) 180 MG TABLET 1 TAB PO DAILY Allergy ( Reported) Hydrochlorothiazide 25 MG TABLET 1 TAB PO DAILY BP (Reported) Levothyroxine Sodium 100 MCG TABLET 1 TAB PO DAILY Thyroid (Reported) Losartan Potassium (Cozaar) 25 MG TABLET 1 TAB PO DAILY BP (Reported) Metoprolol Succ XL (Toprol XL) 100 MG TAB.ER.24H 1 TAB PO DAILY BP (Reported) Multivitamin (Multivitamins) 1 EACH CAPSULE 1 CAP PO DAILY Multivitamin ( Reported) Oxybutynin Chloride (Oxybutynin Chloride ER) 5 MG TAB.ER.24 1 TAB PO DAILY Bladder (Reported) Sennosides/Docusate Sodium (Senna-Docusate Sodium Tablet) 8.6 MG-50 MG TABLET 2 TAB PO QPM PRN Constipation (Reported) Solifenacin Succinate (Vesicare) 5 MG TABLET 1 TAB PO DAILY Bladder (Reported ) Tramadol HCl (Ultram) 50 MG TABLET 1 TAB PO Q4P PRN pain Core Measures/Misc (05/30) Sepsis (View protocol) If YES complete Sepsis Event Note If YES complete Sepsis Event Note Resident Review Statement Resident Statement: examined this patient, discussed with music industry internship, agreed with music industry internship, reviewed images Other Findings: This is an 87 years old woman with past medical history of hypertension hyperlipidemia hypothyroidism, coronary artery disease status post MS with 2 vessel coronary artery bypass grafting about 4 weeks ago at [facility] who presented with one-day history of shortness of breath which seems not to go away the way it has happened in the past. Patient denies any changes in her medication and has been taking all her medications as instructed. On arrival the patient was afebrile 97.9 heart rate of 65 respiration of 20 blood pressure 189/80 saturating 96% on no subcondylar 3 L Physical examination: Alert and oriented to time place and person not in any acute distress Neck no elevated JVD CVS: Regular rate and rhythm normal S1-S2 no murmurs Chest: Clear lungs bilaterally Extremities no edema Labs: Slightly increased WBC of 11,800, H&H H&H 11.0 and 33.1 increased BUN of 30 and increased creatinine of 1.2 baseline is 0.9 CXR: Stable cardiomegaly with small left pleural effusion with associated airspace disease at the left lung base. CTA: No PE Assessment and plan 87 years old one month status post coronary artery bypass grafting 2 vessels presenting with one-day history of shortness of breath found to have negative CTA for clots and mild pulmonary effusion she has no evidence of fluid overload and has DENILSON compared to her baseline values Problem list Shortness of breath ?Pleural effusion Acute kidney injury Congestive heart failure Patient placed on observation in telemetry floor Vital signs every shift Strict I and O's Trop and EKG trend first 3 sets Hold and avoid nephrotoxic medications Confirm home medication Heparin for DVT prophylaxis Patient is DNI DNR Jaydon SZYMANSKI, [facility] 02/03/18 0636: Core Measures/Misc (05/30) Sepsis (View protocol) If YES complete Sepsis Event Note If YES complete Sepsis Event Note Attending MD Review Statement Attending Statement Attending MD Statement: examined this patient, discuss w/resident/PA/WELT BUTTER HAND, agreed w/resident/PA/WELT BUTTER HAND, discussed with family, reviewed images, amended to note Attending Assessment/Plan: 87 yo F with h/o HTN, HLD, hypothyroidism, multiple abdominal surgeries, recent STEMI with left main disease s/p CABG (01/06/18) at [facility] by Dr. Carey, is here for evaluation of dyspnea. Patient was discharged on January 12 to [facility] for rehabilitation, from where she came home 2 days ago. Patient states she had intermittent episodes of dyspnea (mostly at rest) but these would go away while she was at [facility]. Last night, her dyspnea did not resolve so she called 911. She also reports a nonproductive cough. Son reports that patient did not have an appetite while at [facility]. Patient follows with Dr. Mcdonald (Cardiology) and Dr. Carey (Surgeon). Vitals: afebrile, HR 50-60's, BP 125/61, sats 96% on 3L. Exam: AAO, in mild distress but reports improvement in her symptoms, no JVD, Chest reduced air entry at bases, central sternal scar C/D/I, Heart S1S2 regular, systolic murmur+ , LE: no edema. Labs: WBC 11.8, eosinophils 11.9, D-dimer 2464, BUN 30, creat 1.2 (baseline 0.9- 1.0), glucose 166, trop negative, proBNP 1430. CXR: stable cardiomegaly with small left pleural effusion with airspace disease at left lung base. CTA: no PE, small bibasilar dependent pleural effusions, atelectasis +. EKG: sinus rhythm, ST-T changes are as seen on recent EKG from [facility]. Echo (2016): EF 55-60% Assessment and plan: 1. Dyspnea at rest 2. Bilateral small pleural effusions 3. Possible congestive heart failure 4. Recent CAD s/p CABG 5. DENILSON - 23 hour observation on Telemetry - Daily weights, strict I/Os - IV lasix 40 daily - Monitor renal functions - Serial EKG and troponin - Cardio consult (Dr. Luo) - Obtain records from [facility] - No need to repeat echo unless desired by Cardio - Consider Pulm consult if pleural effusions do not resolve. - Patient reports feeling better after IV lasix and diuresed ~ 700 mls. - Hold losartan and HCTZ - Resume amiodarone, aspirin, statin, metoprolol, levothyroxine and oxybutinin - Check TSH, free T4 DVT ppx Hep SC. DNR/I. CMR to be confirmed in AM Observation Initial Note - I have personally examined LETTYBETHANY S on 02/03/18 at 0655. The disposition of MARCOS SAENZESTHER Sommer is uncertain at this time and before a determination can be made, she requires a period of observation for the following reasons [dyspnea, bilateral pleural effusions]
[2018-02-03 04:09] VITALS: BP 112/56
[2018-02-03] MEDS ORDERED: AMIODARONE HCL200 M1 PO ×2 (04:25→13:12)
[2018-02-03] MEDS ORDERED: HYDROCHLOROTHIA25 M1 PO (04:26)
[2018-02-03] MEDS ORDERED: ASPIRIN81 M4 PO (04:26)
[2018-02-03] MEDS ORDERED: ATORVASTATIN CA40 M1 PO (04:26)
[2018-02-03] MEDS ORDERED: TOPROL XL100 M1 PO (04:27)
[2018-02-03] MEDS ORDERED: COZAAR25 M1 PO (04:27)
[2018-02-03] MEDS ORDERED: MULTIVITAMINS1 EAC8 PO (04:27)
[2018-02-03] MEDS ORDERED: ALLEGRA ALLERG180 M1 PO (04:28)
[2018-02-03] MEDS ORDERED: SENNA-DOCUSATE1 EACH PO (04:28)
[2018-02-03] MEDS ORDERED: VESICARE5 M1 PO (04:29)
[2018-02-03] MEDS ORDERED: OXYBUTYNIN CHLOR5 M3 PO (04:29)
[2018-02-03] MEDS ORDERED: LEVOTHYROXINE100 MC1 PO (04:29)
[2018-02-03 06:59] VITALS: BP 140/58
--- NOTE | 2018-02-03 10:56 | Cons- Cardiology ---
General Information and HPI Consulting Request Date of Consult: 02/03/18 Requested By: Joe Fong MD Reason for Consult: Cardiac evaluation Source of Information: patient, old records Exam Limitations: patient's age History of Present Illness: Ms. Savage is an 87-year-old female with past medical history of hypertension, hyperlipidemia, abdominal hernia, cholecystectomy, hypothyroidism, colonic fistula status post proctosigmoidectomy with reversal, and coronary artery disease status post myocardial infarction and two-vessel CABG 4 weeks ago at [facility] who presents for shortness of breath. Patient presented to [facility] on January [address] elevation [place] and underwent two-vessel CABG by Dr. Carey with left internal mammary artery to left anterior descending and saphenous vein graft to obtuse marginal. She subsequently had follow-up with Dr. Carey and Dr. Mcdonald. Upon discharge on January 12, she went to [facility] where she was generally well. She did develop a cough that was nonproductive and had some periods of shortness of breath that quickly resolved. This evening, she again developed nonexertional shortness of breath 2 hours prior to arrival that did not teetee. Because of this, she decided to come in for further evaluation. She says her surgery went well and there were no complications. She left [facility] and went home 2 days ago and was scheduled to begin cardiac therapy. She denies any chest pain, palpitations, nausea, vomiting, diarrhea, sweats, presyncope, abdominal pain, fever, chills, headache, or dysuria. She is a never smoker, denies alcohol or drug use. The above information was obtained by the admitting resident. She admits that she had some shortness of breath which lasted longer than her usual brief episodes of shortness of breath and therefore she thought she was having a heart attack and came into the hospital for observation. Allergies/Medications Allergies: Coded Allergies: lisinopril (UNKNOWN PER PT 12/15/17) codeine (Intermediate, INCREASED PAIN, N/V 08/01/16) omeprazole (Intermediate, GI UPSET 07/03/17) oxycodone (From PERCOCET) (NAUSEA / VOMITING 02/03/17) Home Med List: Amiodarone (Cordarone) 200 MG TAB 2 TAB PO DAILY Heart (Reported) Aspirin (Aspirin*) 81 MG TAB.CHEW 2 TAB PO DAILY heart (Reported) Atorvastatin Calcium 40 MG TABLET 1 TAB PO DAILY cholesterol (Reported) Fexofenadine HCl (Maisha Allergy) 180 MG TABLET 1 TAB PO DAILY Allergy ( Reported) Hydrochlorothiazide 25 MG TABLET 1 TAB PO DAILY BP (Reported) Levothyroxine Sodium 100 MCG TABLET 1 TAB PO DAILY Thyroid (Reported) Losartan Potassium (Cozaar) 25 MG TABLET 1 TAB PO DAILY BP (Reported) Metoprolol Succ XL (Toprol XL) 100 MG TAB.ER.24H 1 TAB PO DAILY BP (Reported) Multivitamin (Multivitamins) 1 EACH CAPSULE 1 CAP PO DAILY Multivitamin ( Reported) Oxybutynin Chloride (Oxybutynin Chloride ER) 5 MG TAB.ER.24 1 TAB PO DAILY Bladder (Reported) Sennosides/Docusate Sodium (Senna-Docusate Sodium Tablet) 8.6 MG-50 MG TABLET 2 TAB PO QPM PRN Constipation (Reported) Solifenacin Succinate (Vesicare) 5 MG TABLET 1 TAB PO DAILY Bladder (Reported ) Tramadol HCl (Ultram) 50 MG TABLET 1 TAB PO Q4P PRN pain Current Medications: Current Medications Sig/Miguel Start time Last Medication Dose Route Stop Time Status Admin Albuterol Sulfate 3 ML ONCE ONE 02/02 2345 DC 02/02 INH 02/02 2346 234 Amiodarone HCl 400 MG DAILY 02/03 09 AC 02/03 PO 0938 Aspirin 162 MG DAILY 02/03 0900 AC 02/03 PO 0937 Atorvastatin Calcium 40 MG 1700 02/03 1700 AC PO Furosemide 40 MG DAILY 02/03 0900 CAN PO Furosemide 40 MG DAILY 02/03 0900 AC 02/03 IV 0939 Furosemide 0 .STK-MED ONE 02/03 0240 DC IV Furosemide 40 MG ONCE ONE 02/03 0230 DC 02/03 IV 02/03 0231 0234 Heparin Sodium 5,000 UNIT Q8 02/03 06 AC 02/03 (Porcine) SC 0503 Ipratropium [place] 2.5 ML ONCE ONE 02/02 2345 DC 02/02 INH 02/02 2346 2347 Levothyroxine Sodium 0.1 MG DAILY AC 02/03 0700 AC 02/03 PO 0937 Loratadine 10 MG DAILY 02/03 0900 AC PO Metoprolol Succinate 100 MG DAILY 02/03 0900 AC 02/03 PO 0939 Multivitamins 1 TAB DAILY 02/03 0900 AC 02/03 PO 0939 Oxybutynin Chloride 5 MG BID 02/03 0900 AC 02/03 PO 0937 Senna/Docusate Sodium 2 TAB QPM PRN 02/03 0445 AC PO Past History Travel History Traveled to [place] past 21 day No Medical History Blood Transfusion Hx: Yes Neurological: NONE EENT: NONE Cardiovascular: hypertension, hyperlipidemia Respiratory: NONE Gastrointestinal: constipation, ABDOMINAL HERNIA Hepatic: sp cholecystectomy Renal: NONE Musculoskeletal: degen joint disease Psychiatric: NONE Endocrine: hypothyroidism Blood Disorders: NONE 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 self Services at Home: Home Health Aide Primary Language: Syriac Smoking Status: Never Smoked Living Will? yes Functional Ability ADLs Independent: dressing, eating, toileting, bathing. Ambulation: independent IADLs Independent: shopping, housework, finances, food prep, telephone, transportation , medication admin. Exam & Diagnostic Data Vital Signs and I&O Vital Signs Date Time Temp Pulse Resp B/P B/P Pulse O2 O2 Flow FiO2 Mean Ox Delivery Rate 02/03 0939 58 140/58 02/03 0938 58 140/58 02/03 0659 98.8 54 20 140/58 96 Room Air 02/03 0409 98.1 54 18 112/56 94 Room Air 02/03 0156 97.9 56 16 125/61 96 Room Air 02/02 2347 98 Nasal 3.0L Cannula 02/02 2303 Nasal 3.0L Cannula 02/02 2302 65 20 189/80 96 Nasal 3.0L Cannula Intake & Output 02/03 1600 02/03 0802/03 0000 02/02 1600 02/02 0802/02 0000 Intake Total 0 Output Total 1300 Balance -1300 0 Intake, Oral 0 Output, Urine 1300 Patient 168 lb 166 lb Weight Weight Estimated Measurement Method Physical Exam: Patient appeared comfortable sitting out of bed in a chair Head normocephalic atraumatic Eyes sclera anicteric conjunctiva showed mild pallor extraocular muscles were normal Neck no jugular venous distention no thyroid masses no palpable nodes Chest lungs revealed decreased air entry in the left base slight few crackles Heart regular rhythm with a 1/6 to 2/6 systolic murmur Abdomen soft no organomegaly bowel sounds normal Extremities no clubbing cyanosis or edema Neurological no gross motor or sensory deficits Labs/Brad Results: Laboratory Tests 02/03 02/02 0650 2310 Chemistry Sodium (137 - 145 mmol/L) 139 Potassium (3.5 - 5.1 mmol/L) 4.4 Chloride (98 - 107 mmol/L) 101 Carbon Dioxide (22 - 30 mmol/L) 25 Anion Gap (5 - 16) 13 BUN (7 - 17 mg/dL) 30 H Creatinine (0.5 - 1.0 mg/dL) 1.2 H Estimated GFR (>60 ml/min) 43 L BUN/Creatinine Ratio (7 - 25 %) 25.0 Glucose (65 - 99 mg/dL) 166 H Calcium (8.4 - 10.2 mg/dL) 8.8 Total Bilirubin (0.2 - 1.3 mg/dL) 0.4 AST (14 - 36 U/L) 20 ALT (9 - 52 U/L) 30 Alkaline Phosphatase (<127 U/L) 158 H Troponin I (< 0.11 ng/ml) 0.20 *H 0.03 Jit-X-Qkioxlxlral Pept (<125 pg/mL) 1430 H Total Protein (6.3 - 8.2 g/dL) 7.0 Albumin (3.5 - 5.0 g/dL) 3.8 Globulin (1.9 - 4.2 gm/dL) 3.2 Albumin/Globulin Ratio (1.1 - 2.2 %) 1.2 TSH (0.270 - 4.200 uIU/mL) 2.170 Free T4 (0.85 - 1.93 ng/dL) 2.41 H Coagulation D-Dimer High Sensitivty (0 - 243 ng/ml) 2454 H Hematology CBC w Diff NO MAN DIFF REQ WBC (4.8 - 10.8 /CUMM) 11.8 H RBC (4.20 - 5.40 /CUMM) 3.68 L Hgb (12.0 - 16.0 G/DL) 11.0 L Hct (37 - 47 %) 33.1 L MCV (81.0 - 99.0 FL) 89.8 MCH (27.0 - 31.0 PG) 29.8 MCHC (33.0 - 37.0 G/DL) 33.2 RDW (11.5 - 14.5 %) 14.6 H Plt Count (130 - 400 /CUMM) 339 MPV (7.4 - 10.4 FL) 8.0 Gran % (42.2 - 75.2 %) 77.1 H Lymphocytes % (20.5 - 51.1 %) 5.5 L Monocytes % (1.7 - 9.3 %) 5.0 Eosinophils % (0 - 5 %) 11.9 H Basophils % (0.0 - 2.0 %) 0.5 Absolute Granulocytes (1.4 - 6.5 /CUMM) 9.1 H Absolute Lymphocytes (1.2 - 3.4 /CUMM) 0.6 L Absolute Monocytes (0.10 - 0.60 /CUMM) 0.6 Absolute Eosinophils (0.0 - 0.7 /CUMM) 1.4 Absolute Basophils (0.0 - 0.2 /CUMM) 0.1 Diagnostic Data EKG Results Sinus rhythm with inverted T waves in 1 aVL in the precordial leads but similar to her postoperative EKG. CXR Results Stable cardiomegaly with small left pleural effusion with associated airspace disease at the left lung base. Other Results CT scan of the chest1. No evidence of pulmonary embolism. 2. Small bibasilar dependent pleural effusions. Atelectasis at right lung base. 3. Status post median sternotomy with streaky opacities in the anterior mediastinum adjacent to the sternum. This is consistent with recent surgery. No abscess.. VTE: negative Assessment/Plan Assessment/Plan In summary this 87-year-old female was admitted with the following problems 1. Shortness of breath. Chest x-ray and CTA of the chest was essentially unremarkable except for postoperative bypass surgical changes. Small left pleural effusion is probably related to cardiac surgery. She appears comfortable right now on room air. 2. Recent coronary artery bypass graft surgery. Postoperatively patient may have gone into atrial fibrillation that is why she is on amiodarone. She presently is in sinus rhythm. I would decrease amiodarone to 200 mg a day. 3. Slight elevation in troponin. This could be downward trending from her previous myocardial infarction 3-4 weeks ago. Postoperative EKG is not changed from present admission EKG. Would recommend another echocardiogram. Consult Acknowledgment - Thank you for your consult request.
--- NOTE | 2018-02-03 10:57 | PN- Att Addend ---
Attending Addendum Attending Brief Note 87F PMH HTN, HLD, hypothyroidism, multiple abdominal surgeries, recent STEMI with left main disease s/p CABG (01/06/18) at [facility] by Dr. Carey brought in overnight for dyspnea at rest and with exertion. Recently left [facility] and went home, but found herself increasingly short of breath. Today she feels better. She still has dyspnea with exertion. No telemetry events or EKG changes. Troponin newly positive 0.20. Exam benign. 1. NSTEMI 2. SOB 3. History of CABG Plan - Continue as observation on telemetry - Continue Lasix - Follow cardiology recommendations - Trend cardic enzymes to peak - Continue home medications - DVT PPx
--- NOTE | 2018-02-03 12:50 | ECHOCARDIOGRAM REPORT ---
BETHANY SAENZ Age: 87 : 1930 Gender: F Exam Date: 02/03/2018 11:28 Exam Location: [address] Ht (in): 67 Wt (lb): 168 BSA: 1.91 BP: 140 / 58 Ordering Physician: Kurt Guan MD Referring Physician: Kurt Guan MD Technologist: Alonso Manriquez [facility] Room Number: 175-1 Indications: HEART FAILURE Rhythm: Sinus Technical Quality: fair FINDINGS Left Ventricle Normal size left ventricle. Left ventricular wall thickness mildly increased. Normal left ventricular ejection fraction estimated at 60-65%. Right Ventricle Normal right ventricular size and function. Right Atrium Normal right atrial size. Left Atrium Left atrial size at the upper limits of normal. Mitral Valve Moderate mitral annular calcification. Trace to mild mitral regurgitation. Aortic Valve Diffuse thickening (sclerosis) of the aortic valve cusps without reduced excursion. Tricuspid Valve Tricuspid valve is normal in structure and function. Mild tricuspid regurgitation. Right ventricular systolic pressure estimated to be at upper limits of normal at 30 mmHg. Pulmonic Valve Pulmonic valve not well visualized, grossly normal. Pericardium No pericardial effusion. Great Vessels Normal size aortic root. CONCLUSIONS Normal left ventricular systolic function with mild concentric hypertrophy. No significant valvular abnormalities. Normal Right ventricular function. Daniel Luo M.D. (Electronically Signed) Final Date: 03 Feb 2018 12:49 MEASUREMENTS (Male / Female) Normal Values 2D ECHO LV Diastolic Diameter PLAX 4.0 cm 4.2 - 5.9 / 3.9 - 5.3 cm LV Systolic Diameter PLAX 2.5 cm 2.1 - 4.0 cm LV Fractional Shortening PLAX 37.5 % 25 - 46 % LV Ejection Fraction 2D Teich 68.1 % IVS Diastolic Thickness 1.1 cm LVPW Diastolic Thickness 1.1 cm LV Relative Wall Thickness 0.6 RV Internal Dim ED PLAX 3.7 cm 1.9 - 3.8 cm LVOT Diameter 1.7 cm Aortic Root Diameter 2.7 cm LA Systolic Diameter LX 3.7 cm 3.0 - 4.0 / 2.7 - 3.8 cm LA Volume 36.0 cm 18 - 58 / 22 - 52 cm Ascending Aorta Diameter 3.1 cm DOPPLER AV Peak Velocity 161.0 cm/s AV Peak Gradient 10.4 mmHg AV Mean Velocity 107.0 cm/s AV Mean Gradient 6.0 mmHg AV Velocity Time Integral 29.5 cm LVOT Peak Velocity 80.5 cm/s LVOT Peak Gradient 2.6 mmHg LVOT Mean Velocity 52.6 cm/s LVOT Mean Gradient 1.0 mmHg LVOT Velocity Time Integral 19.9 cm LVOT Stroke Volume 45.2 cm AV Area Cont Eq vti 1.5 cm AV Area Cont Eq pk 1.1 cm MV Peak Velocity 77.2 cm/s MV Peak Gradient 2.4 mmHg MV Mean Velocity 47.2 cm/s MV Mean Gradient 1.0 mmHg Mitral E Point Velocity 58.7 cm/s Mitral A Point Velocity 82.4 cm/s Mitral E to A Ratio 0.7 MV PHT Velocity 74.7 cm/s MV Deceleration Assumption 154.0 cm/s MV Pressure Half Time 145.5 ms MV Area PHT 1.5 cm MV Deceleration Time 296.0 ms TR Peak Velocity 251.0 cm/s TR Peak Gradient 25.2 mmHg Right Atrial Pressure 5.0 mmHg Pulmonary Artery Systolic Pressu 30.2 mmHg Right Ventricular Systolic Press 30.2 mmHg PV Peak Velocity 113.0 cm/s PV Peak Gradient 5.1 mmHg PV Mean Velocity 69.3 cm/s PV Mean Gradient 2.0 mmHg PV Velocity Time Integral 22.6 cm LV E' Lateral Velocity 9.7 cm/s Mitral E to LV E' Lateral Ratio 6.1 LV E' Septal Velocity 4.5 cm/s Mitral E to LV E' Septal Ratio 13.1
--- NOTE | 2018-02-03 13:27 | Patient Discharge Instructions ---
Discharge Instructions General Discharge Information You were seen/treated for: 1. NSTEMI 2. SOB 3. History of CABG Special Instructions: Please follow-up with your PCP within 1-2 weeks after discharge. Please follow up with your knitter mechanic within 1 week after discharge. Please repeat your blood work on 02/08/18. Diet Continue normal diet: Yes Recommended Diet: Heart Healthy Activity Full Activity/No Limits: Yes Activity Self Limited: Yes Acute Coronary Syndrome Inclusion Criteria At DC or during hospital stay patient has or had the following: ACS DIAGNOSIS No Discharge Core Measures Meds if any: Prescribed or Continued at Discharge Meds if any: NOT Prescribed or Continued at Discharge Congestive Heart Failure Inclusion Criteria At DC or during hospital stay patient has or had the following: CHF DIAGNOSIS No Discharge Core Measures Meds if any: Prescribed or Continued at Discharge Meds if any: NOT Prescribed or Continued at Discharge Cerebrovascular accident Inclusion Criteria At DC or during hospital stay patient has or had the following: CVA/TIA Diagnosis No Discharge Core Measures Meds if any: Prescribed or Continued at Discharge Meds if any: NOT Prescribed or Continued at Discharge Venous thromboembolism Inclusion Criteria VTE Diagnosis No VTE Type NONE VTE Confirmed by (Test) NONE Discharge Core Measures - Per Current guidelines, there needs to be overlap - treatment for the first 5 days of Warfarin therapy. - If discharged on Warfarin prior to 5 days of - overlap therapy, the patient will need to be - assessed for post discharge needs including - *Post discharge parental anticoagulation - *Warfarin and/or parental anticoagulation education - *Follow up date to check INR post discharge At least 5 days overlap therapy as Inpatient No Meds if any: Prescribed or Continued at Discharge Note: Overlap Therapy is Warfarin and Anticoagulant Meds if any: NOT Prescribed or Continued at Discharge
[2018-02-03 15:24] VITALS: BP 124/62
[2018-02-03 22:33] VITALS: BP 132/56
[2018-02-04 06:31] VITALS: BP 140/58
--- NOTE | 2018-02-04 07:28 | PN- Housestaff ---
Allen SZYMANSKI,[facility] 02/04/18 0728: Subjective Follow-up For: 1. Dyspnea 2. Small bilateral pleural effusions 3. Acute kidney injury 4. Demand Ischemia Tele-Events Since Last Visit: Sinus bradycardia Heart rate 49-54 Subjective: Patient states her breathing is back to her baseline and she would like to go home today. Denies any chest pain, palpitations or lower ext edema. Review of Systems Constitutional: Reports: no symptoms. EENTM: Reports: no symptoms. Cardiovascular: Reports: no symptoms. Respiratory: Reports: no symptoms. Gastrointestinal: Reports: no symptoms. Genitourinary: Reports: no symptoms. Musculoskeletal: Reports: no symptoms. Skin: Reports: no symptoms. Neurological/Psychological: Reports: no symptoms. Hematologic/Endocrine: Reports: no symptoms. Immunologic/Allergic: Reports: no symptoms. Objective Last 24 Hrs of Vital Signs/I&O Vital Signs Date Time Temp Pulse Resp B/P B/P Pulse O2 O2 Flow FiO2 Mean Ox Delivery Rate 02/04 819 55 140/58 02/04 0818 55 140/58 02/04 0631 99.0 55 20 140/58 93 Room Air 02/04 0000 Room Air Room Air 02/03 2233 98.4 54 132/56 Intake & Output 02/04 1600 02/04 0800 02/04 0000 Intake Total 50 400 Output Total Balance 50 400 Intake, Oral 50 400 Number 0 Bowel Movements Physical Exam General Appearance: Alert, Oriented X3, Cooperative, No Acute Distress Skin: No Rashes, No Breakdown Cardiovascular: Regular Rate, Normal S1, Normal S2 Lungs: Decreased breath sounds, Rhonchi Abdomen: Normal Bowel Sounds, Soft, No Tenderness Extremities: No Clubbing, No Cyanosis, No Edema Current Medications: Current Medications Sig/Miguel Start time Last Medication Dose Route Stop Time Status Admin Amiodarone HCl 200 MG DAILY 02/04 09 DCD 02/04 PO 0818 Aspirin 162 MG DAILY 02/03 09 DCD 02/04 PO 0818 Atorvastatin Calcium 40 MG 1700 02/03 1700 DCD 02/03 PO 1635 Furosemide 40 MG DAILY 02/03 09 DCD 02/04 IV 0820 Heparin Sodium 5,000 UNIT Q8 02/03 06 DCD 02/04 (Porcine) SC 0510 Levothyroxine Sodium 0.1 MG DAILY AC 02/03 07 DCD 02/04 PO 0510 Loratadine 10 MG DAILY 02/03 900 DCD PO Metoprolol Succinate 100 MG DAILY 02/03 900 DCD 02/04 PO 0819 Multivitamins 1 TAB DAILY 02/03 900 DCD 02/04 PO 0819 Oxybutynin Chloride 5 MG BID 02/03 900 DCD 02/04 PO 0818 Patient Medication 1 ED ONE ONE 02/04 1430 DC Teaching ED 02/04 1431 Senna/Docusate Sodium 2 TAB QPM PRN 02/03 0445 DCD PO Last 24 Hrs of Lab/Brad Results Last 24 Hrs of Labs/Mics: Laboratory Tests 02/04/18 0634: Anion Gap 10, Estimated GFR 36 L, BUN/Creatinine Ratio 25.7 H, CBC w Diff NO MAN DIFF REQ, RBC 3.52 L, MCV 90.2, MCH 29.8, MCHC 33.0, RDW 14.4, MPV 8.6, Gran % 64.3, Lymphocytes % 12.4 L, Monocytes % 7.1, Eosinophils % 15.7 H, Basophils % 0.5, Absolute Granulocytes 5.5, Absolute Lymphocytes 1.1 L, Absolute Monocytes 0.6, Absolute Eosinophils 1.3, Absolute Basophils 0 Assessment/Plan Assessment: Ms. 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 On presentation, vital signs were T 97.9, HR 65, RR 20, BP 189/80, saturating 96 % on 3 L nasal cannula. Blood pressure improved to 125/61. Laboratories were significant for white blood cell count 11.8, BUN 30, creatinine 1.2 (baseline 3.9), glucose 166, alkaline phosphatase 158, BNP 1430, troponin 0 0.03. Chest x -ray showed a small left-sided pleural effusion. CT showed negative for PE but did show small bibasilar dependent pleural effusions and atelectasis of the right lung base. She will be placed in observation on telemetry and treated for the following problems: 1. Dyspnea, Likley from HFpEF 2. Small bilateral pleural effusions 3. Acute kidney injury 4. Type 2 MA #Dyspnea: Patient presents with dyspnea in setting of recent CABG. Most concerning would be heart failure. On exam, she does not appear to be overloaded, with lack of JVD or peripheral edema. Imaging does show small bilateral pleural effusions. She did receive some furosemide in the emergency room and feels a little better after that. She was previously followed by Dr. Parisi but has not seen her in a while because she is on medical leave. She has had a thoracocentesis in the past for pleural effusions that showed exudative pleural fluid but etiology was never discovered. - Troponin 0.03-->0.20-->0.14, likely type 2 MA from HF. - Echocardiogram showed normal ejection fraction with no reasonable motion abnormalities. - Appreciate cardiology recommendations. - Patient will be discharged home on Furosemide 40 mg daily, with outpatient follow-up with her mid level game designer in a week. #Acute kidney in patient presents with creatinine 1.2, baseline is 0.9. Likely prerenal azotemia. - Creatinine 1.4 today. Patient advised to repeat blood work(BEP) on 02/08 before seeing the mid level game designer. -Avoid nephrotoxins -Hold hydrochlorothiazide and losartan #Chronic medical problems: -Continue other home medications -Confirm medication regimen in the morning DVT prophylaxis with heparin Heart healthy diet DNR/DNI Problem List: 1. Bilateral pleural effusion 2. Dyspnea Pain Ratin Pain Location: None Pain Goal: Remain pain free Pain Plan: NA Tomorrow's Labs & Rationales: None Joe Fong MD 02/04/18 1315: Attending MD Review Statement Attending Statement Attending MD Statement: examined this patient, discuss w/resident/PA/WALLCOVERING TEXTURER, agreed w/resident/PA/WALLCOVERING TEXTURER, reviewed EMR data (avail) Attending Assessment/Plan: 87F PMH HTN, HLD, hypothyroidism, multiple abdominal surgeries, recent STEMI with left main disease s/p CABG (01/06/18) at [facility] by Dr. Carey brought in overnight for dyspnea at rest and with exertion. Recently left STR and went home, but found herself increasingly short of breath. Today she feels better. Dyspnea improved. No EKG changes or telemetry events. Creatinine slightly increased to 1.4. Troponin peaked at 0.20, now more likely to be Type 2 MA than NSTEMI. 1. Type 2 myocardial infarction 2. HFpEF 3. History of CABG Plan - Stable for discharge home - Continue Lasix 40mg daily PO - BEP as outpatient - Outpatient cardiology follow up - Continue home medications
[2018-02-04 08:02] LABS: ABSOLUTE BASOPHIL COUNT 0 /CUMM (0.0-0.2); ABSOLUTE EOSINOPHIL COUNT 1.3 /CUMM (0.0-0.7); ABSOLUTE GRANULOCYTE CT 5.5 /CUMM (1.4-6.5); ABSOLUTE LYMPH COUNT 1.1 /CUMM (1.2-3.4); ABSOLUTE MONOCYTE COUNT 0.6 /CUMM (0.10-0.60); BASOPHIL % 0.5 % (0.0-2.0); GRANULOCYTE % 64.3 % (42.2-75.2); HEMATOCRIT 31.7 % (37-47); MEAN CORPUSCULAR HGB 29.8 PG (27.0-31.0); MEAN CORPUSCULAR VOLUME 90.2 FL (81.0-99.0); MEAN PLATELET VOLUME 8.6 FL (7.4-10.4); PLATELET COUNT 300 /CUMM (130-400); RBC DISTRIBUTION WIDTH 14.4 % (11.5-14.5); RED BLOOD CELL CT 3.52 /CUMM (4.20-5.40); WHITE BLOOD CELL COUNT 8.6 /CUMM (4.8-10.8)
[2018-02-04 08:19] VITALS: BP 140/58
[2018-02-04 08:43] LABS: EOSINOPHIL % 15.7 % (0-5)
--- NOTE | 2018-02-04 10:33 | PN- Cardiology ---
Subjective Subjective: The patient is awake, alert, overall feels improved The events of the last 24 hours as well as telemetry were reviewed. Review of Systems: The review of systems is negative for chest pains, palpitations nor lightheadedness. The remainder of the 14 point review of systems is noncontributory with the exception of above. Objective Vital Signs and I&Os Vital Signs Date Time Temp Pulse Resp B/P B/P Pulse O2 O2 Flow FiO2 Mean Ox Delivery Rate 02/04 0819 55 140/58 02/04 0818 55 140/58 02/04 0631 99.0 55 20 140/58 93 Room Air 02/04 0000 Room Air Room Air 02/03 2233 98.4 54 132/56 02/03 1600 Room Air 02/03 1524 98.3 59 20 124/62 94 Room Air Intake & Output 02/04 0802/04 0000 02/03 1600 02/03 0000 Intake Total 50 400 480 0 Output Total 1300 Balance 50 400 480 -1300 0 Intake, Oral 50 400 480 0 Number 0 Bowel Movements Output, Urine 1300 Patient 168 lb 166 lb Weight Weight Estimated Measurement Method Physical Exam: General: Nontoxic, no apparent distress. HEENT: Sclera and conjunctiva within normal limits, without xanthelasmas. Neck: Carotids 2+ without bruits. Respiratory: Scattered rhonchi, air movement is decreased throughout, without accessory respiratory muscle use. Heart: Regular rate and rhythm, without murmurs, without JVD. Abdomen: Soft, nontender, no masses, normoactive bowel sounds. Extremities: Without clubbing, cyanosis, without edema. Neuro: Nonfocal exam, strength, 5 out of 5 Skin: Within normal limits without lesions. Psych: Mood and affect: Normal Current Medications: Current Medications Sig/Miguel Start time Last Medication Dose Route Stop Time Status Admin Amiodarone HCl 200 MG DAILY 02/04 900 AC 02/04 PO 08 Amiodarone HCl 400 MG DAILY 02/03 900 DC 02/03 PO 0938 Aspirin 162 MG DAILY 02/03 900 AC 02/04 PO 0818 Atorvastatin Calcium 40 MG 1700 02/03 1700 AC 02/03 PO 1635 Furosemide 40 MG DAILY 02/03 900 AC 02/04 IV 0820 Heparin Sodium 5,000 UNIT Q8 02/03 600 AC 02/04 (Porcine) SC 0510 Levothyroxine Sodium 0.1 MG DAILY AC 02/03 0700 AC 02/04 PO 0510 Loratadine 10 MG DAILY 02/03 09 AC PO Metoprolol Succinate 100 MG DAILY 02/03 09 AC 02/04 PO 0819 Multivitamins 1 TAB DAILY 02/03 900 AC 02/04 PO 0819 Oxybutynin Chloride 5 MG BID 02/03 900 AC 02/04 PO 0818 Patient Medication 1 ED ONE ONE 02/03 1545 [place] Teaching ED 02/03 1546 Senna/Docusate Sodium 2 TAB QPM PRN 02/03 0445 AC PO Results Last 48 Hrs of Labs/Mics: Laboratory Tests 02/04/18 0634: Anion Gap 10, Estimated GFR 36 L, BUN/Creatinine Ratio 25.7 H, CBC w Diff NO MAN DIFF REQ, RBC 3.52 L, MCV 90.2, MCH 29.8, MCHC 33.0, RDW 14.4, MPV 8.6, Gran % 64.3, Lymphocytes % 12.4 L, Monocytes % 7.1, Eosinophils % 15.7 H, Basophils % 0.5, Absolute Granulocytes 5.5, Absolute Lymphocytes 1.1 L, Absolute Monocytes 0.6, Absolute Eosinophils 1.3, Absolute Basophils 0 02/03/18 1230: Troponin I 0.14 *H 02/03/18 0650: Troponin I 0.20 *H 02/02/18 2310: Anion Gap 13, Estimated GFR 43 L, BUN/Creatinine Ratio 25.0, Glucose 166 H, Calcium 8.8, Total Bilirubin 0.4, AST 20, ALT 30, Alkaline Phosphatase 158 H, Troponin I 0.03, [id number] Pept 1430 H, Total Protein 7.0, Albumin 3.8, Globulin 3.2, Albumin/Globulin Ratio 1.2, TSH 2.170, Free T4 2.41 H, D-Dimer High Sensitivty 2454 H, CBC w Diff NO MAN DIFF REQ, RBC 3.68 L, MCV 89.8, MCH 29.8, MCHC 33.2, RDW 14.6 H, MPV 8.0, Gran % 77.1 H, Lymphocytes % 5.5 L, Monocytes % 5.0, Eosinophils % 11.9 H, Basophils % 0.5, Absolute Granulocytes 9.1 H, Absolute Lymphocytes 0.6 L, Absolute Monocytes 0.6, Absolute Eosinophils 1.4, Absolute Basophils 0.1 Assessment/Plan Assessment/Plan 1. Shortness of breath. Chest x-ray and CTA of the chest was essentially unremarkable except for postoperative bypass surgical changes. Small left pleural effusion is probably related to cardiac surgery. She appears comfortable right now on room air. Her overall course is consistent with acute on chronic congestive heart failure with preserved LV systolic function. She has improved with low-dose Lasix, and I would discharge her with further follow-up, to be seen in our outpatient CHF clinic next week. 2. Recent coronary artery bypass graft surgery. Postoperatively patient may have gone into atrial fibrillation that is why she is on amiodarone. She presently is in sinus rhythm. I would decrease amiodarone to 200 mg a day. 3. Slight elevation in troponin. Overall not consistent with an acute coronary syndrome. Most likely mild elevation in the setting of acute congestive heart failure. We will continue her current medication regimen. Further titration will be performed as an outpatient. Continue telemetry? No
[2018-02-04] MEDS ORDERED: LASIX40 M1 PO ×2 (11:08→12:05)
== END 2018-02-04 14:36 | disposition home health service (06) ==
LOC: ERH 22:53 → ERHI 02-03 02:19 → 1NO 02-03 02:19 → ENRESERV 02-03 02:58 → 1NO 02-03 04:03 → ENPENDDIS 02-04 11:57 → 1NO 02-04 14:36 → ENTRNSPT 02-04 14:39 → EDTRNSPT 02-04 14:42 → EDTRNSPTSTS 02-04 14:42 → CMPTRNSPT 02-04 15:08
PROVIDERS: Physician Assistant Medical; Preventive Medicine Public Health & General Preventive Medicine
DX: I11.0 Hypertensive heart disease with heart failure (principal); I50.33 Acute on chronic diastolic (congestive) heart failure; E78.5 Hyperlipidemia, unspecified; E03.9 Hypothyroidism, unspecified; Z79.82 Long term (current) use of aspirin; I25.10 Atherosclerotic heart disease of native coronary artery without angina pectoris; I25.2 Old myocardial infarction; Z95.1 Presence of aortocoronary bypass graft; K59.00 Constipation, unspecified; M19.90 Unspecified osteoarthritis, unspecified site; N39.41 Urge incontinence; N17.9 Acute kidney failure, unspecified; I21.A1 Myocardial infarction type 2
CPT/HCPCS: 36592; 71045; 82436; 93005; 93010; 93306; 96372; 96374; 96376; 97110-GP; 97116-GP; 97161-GP; G0378; G8978-GP; G8979-GP; G8980-GP; J1644; J1940; J3490; J7508